=== PATIENT | male | born 2000 | race Caucasian/White ===

== ENCOUNTER 2021-10-04 10:32 | Emergency (ER) | payer MEDICAID, SELFPAY ==
[2021-10-04] VITALS (8 sets, daily range): BP systolic 105–115; BP diastolic 62–79; PULSE 54–75; RESP 15–20; TEMP 36.8–36.9; O2SAT 98; BMI 19.3
--- NOTE | 2021-10-04 12:03 | ED.SYNCOPE ---
HPI - Syncope General Time Seen by Provider: 12:02 Date Seen: 10/04/21 Chief Complaint: Syncope/Fainted Stated Complaint: Syncope today Time Seen by Provider: 10/04/21 10:35 Source: patient History of Present Illness HPI narrative: This 21-year-old male comes in reporting a syncopal episode that occurred just prior to arrival. He states that he feels back to normal at this time. 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 He states that he was bent over and when he stood up he became lightheaded and did have loss of consciousness. He also states that he had a brief severe headache just prior to this episode. He had a similar syncopal event many months ago which also was present he did with a headache that resolved. At that time he had CT imaging of his head and lab results which all were normal. He states that he is in good health. He does have a history of headaches and has been treated in the past for migraine-type headaches. He currently does not have any headache and states that he feels back to normal. Related Data Home Medications Medication Instructions Recorded Confirmed No Known Home Medications 10/04/21 10/04/21 Allergies Allergy/AdvReac Type Severity Reaction Status Date / Time ibuprofen Allergy Verified 10/04/21 10:38 Review of Systems Status of ROS: Reports: 10 or more systems reviewed and unremarkable except as noted in History and below Narrative: Constitutional: No fevers, no weight gain or loss. Eyes: No discharge. No vision changes. HENT: No congestion, no sore throat, no ear pain. Cardiovascular: No chest pain, no palpitations. Respiratory: No shortness of breath, no wheezes, no cough. Gastrointestinal: No abdominal pain, no vomiting, no diarrhea. Genitourinary: No dysuria, no hematuria. Musculoskeletal: Normal range of motion. Skin: No rashes, no pruritis. Neurological: No dizziness, weakness, sensory change, speech change. Endo/Heme/Allergies: No bruising or bleeding. No polydipsia. Pysch: no suicidality, no anxiety, no insomnia. All other systems reviewed and are negative. [facility] Medical History (Updated 10/04/21 @ 12:11 by Villa Whatley MD) Asthma Migraine Surgical History History of elbow surgery Social History Smoking Status: Current some day smoker Do you use any of these nicotine containing products: E-Cigarettes and Vaping Products Second hand tobacco smoke exposure: No How often do you have a drink containing alcohol: monthly or less How often do you have six or more drinks on one occasion: Less than monthly AUDIT-C Alcohol total score: 2 Non-prescribed substance use: denies use service: No Exam Narrative: Exam Narrative: Constitutional: Well-developed, well-nourished, no acute distress. HEENT: Normocephalic, atraumatic. Neck: Normal range of motion. Nontender. Supple. Heart: Regular. No murmurs. Normal rate. Intact distal pulses. Lungs: Clear to auscultation. No chest discomfort. No wheezes, rhonchi, or rales. Abdomen: Normal bowel sounds. Nontender. No rebound tenderness. Genitalia: Deferred. Back: No midline tenderness. Normal range of motion. Extremities: Normal range of motion. No injury. Skin: Intact. No rash. Warm. No erythema or pallor. Neurologic: No altered sensation. No weakness. Alert and oriented. Psychiatric: No suicidality. No anxiety or depression. No insomnia. Nursing notes and vitals signs are reviewed. Const: Vital Signs, click to edit/add: Vital Signs - 24 hr 10/04/21 10:38 10/04/21 11:12 10/04/21 11:25 Temperature 98.2 F Pulse Rate [Pulse Oximeter] 61 Pulse Rate [orthos tatic lying] 63 Pulse Rate [orthos tatic sitting] 57 L Pulse Rate [orthos tatic standing] 75 Respiratory Rate 18 Blood Pressure [Ri ght Upper Arm] 113/70 Blood Pressure [or thostatic lying Ri ght Arm] 108/72 112/79 Blood Pressure [or thostatic sitting Right Arm] 115/77 115/77 Blood Pressure [or thostatic standing Right Arm] 112/79 108/72 Course Vital Signs Vital signs: Initial Vital Signs Temperature 98.2 F 10/04/21 10:38 Temperature Source Temporal Artery Scan 10/04/21 10:38 Pulse Rate 61 10/04/21 10:38 Pulse Rhythm 10/04/21 10:38 Respiratory Rate 18 10/04/21 10:38 Blood Pressure 113/70 10/04/21 10:38 Blood Pressure Mean 84 10/04/21 10:38 Blood Pressure Position Supine 10/04/21 10:38 Oxygen Delivery Method 10/04/21 10:38 Vital Signs Temperature 98.2 F 10/04/21 10:38 Pulse Rate 61 10/04/21 10:38 Respiratory Rate 18 10/04/21 10:38 Blood Pressure 113/70 10/04/21 10:38 Temperature 98.2 F 10/04/21 10:38 Pulse Rate 63 10/04/21 11:25 Respiratory Rate 18 10/04/21 10:38 Blood Pressure 112/79 10/04/21 11:25 MDM - Syncope MDM Narrative Medical decision making narrative: This patient comes in with a syncopal event with prodrome of feeling lightheaded. He feels back to normal. An EKG was ordered and shows normal sinus rhythm without any ST or T-wave abnormalities. His vital signs are all within normal range. I discussed lab and imaging options again with the patient and in a process of shared decision making these were declined. I also described various causes of feeling lightheadedness and eventual syncope. Often these may occur in combination that bring about syncope. In his case he did have a headache and was bent over for a while prior to syncope when occurred when he stood up. I did discuss following up with his primary physician especially if symptoms are recurrent. Differential Diagnosis Differential diagnosis: Likely syncope due to orthostatic hypotension and vasovagal syncope ECG Data Attestation: I personally reviewed and interpreted this ECG as follows: ECG interpretation date: 10/04/21 ECG interpretation time: 12:07 Interpretation: Normal sinus rhythm. Rate 61 beats per minute. There are no ST or T-wave abnormalities. Discharge Plan Discharge Clinical Impression: Vasovagal syncope Patient Disposition: Home, Self-Care Condition: Improved Instructions: Syncope (ED) Additional Instructions: Syncope with prodrome. Continue current plans. Follow up with MD if symptoms are recurrent or otherwise as needed. Return if worsening. Activity Level: Activity as Tolerated Prescriptions: No Action No Known Home Medications 0RF Follow Up/Referrals: Kar Shipman MD [Primary Care Provider] - Stand Alone Forms: [employer] Info Instructions
== END 2021-10-04 12:45 | disposition home or self-care (01) ==
LOC: ED 12:20
PROVIDERS: Emergency Provider Emergency Medicine Emergency Medical Services; PCP Family Medicine
DX: R55 Syncope and collapse (principal)
CPT/HCPCS: 93005; 99283; 99284

== ENCOUNTER 2021-10-10 11:35 | Emergency (ER) | payer MEDICAID, SELFPAY ==
[2021-10-10 11:42] VITALS: BP 120/81; PULSE 69; RESP 18; TEMP 37.3; O2SAT 97; BMI 18.8
--- NOTE | 2021-10-10 11:58 | ED.NURSE ---
ekg done and given to dr. montaño, shows SR
[2021-10-10 12:00] VITALS: BP 113/77; PULSE 74; RESP 16; O2SAT 97
--- NOTE | 2021-10-10 12:04 | CRLHL7_ITS ---
For Patients: As a result of the Century Cures Act, medical imaging exams and procedure reports are released immediately into your electronic medical record. You may view this report before your referring provider. If you have questions, please contact your health care provider. INDICATION: HEADACHE, LIGHTHEADED COMPARISON: 02/06/2015 TECHNIQUE: A CT volumetric acquisition was performed of the brain without IV contrast. Please note that all CT scans at this facility use dose modulation, iterative reconstruction, and/or weight-based dosing when appropriate to reduce radiation dose to as low as reasonably achievable. FINDINGS: The CT images reveal a normal appearance of the cerebral ventricles and basal cisterns. There is no evidence of intracranial hemorrhage, tissue infarction or mass effect. The mastoid air cells and middle ear cavities are clear. The calvarium appears intact. There is normal aeration of the visualized paranasal sinuses. IMPRESSION: Negative head CT. Please note that all CT scans at this facility use dose modulation, iterative reconstruction, and/or weight-based dosing when appropriate to reduce radiation dose to as low as reasonably achievable. Dictated by Eamon Hinojosa MD @ 10/10/2021 1:08:25 PM (Electronically Signed)
--- NOTE | 2021-10-10 12:06 | ED_ITS ---
HPI - General Adult General Time Seen by Provider: 12:05 Date Seen: 10/10/21 Chief complaint: Syncope/Fainted Stated complaint: Lightheaded, nausea Time Seen by Provider: 10/10/21 11:53 History of Present Illness HPI narrative: This 21-year-old male comes in because of a syncopal event that occurred just prior to arrival. He was seen by me about a week ago with similar circumstances. Today he states he was driving in a car when he had sudden onset of headache in the frontal part of his head. He began to feel lightheaded. He got out of the car and his headache and lightheadedness persisted. He did lose consciousness briefly. He did not hurt himself and is unsure if he fell. He continues to have headache and feels some tingling sensation in his body. He states that he did not have breakfast this morning but has been taking liquids. Last week he had syncope event also related to onset of a headache. 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 He does not have any neurologic deficit. Related Data Home Medications Medication Instructions Recorded Confirmed No Known Home Medications 10/04/21 10/04/21 Allergies Allergy/AdvReac Type Severity Reaction Status Date / Time ibuprofen Allergy Verified 10/04/21 10:38 Review of Systems Status of ROS: Reports: 10 or more systems reviewed and unremarkable except as noted in History and below Narrative: Constitutional: No fevers, no weight gain or loss. Eyes: No discharge. No vision changes. HENT: No congestion, no sore throat, no ear pain. Cardiovascular: No chest pain, no palpitations. Respiratory: No shortness of breath, no wheezes, no cough. Gastrointestinal: No abdominal pain, no vomiting, no diarrhea. Genitourinary: No dysuria, no hematuria. Musculoskeletal: Normal range of motion. Skin: No rashes, no pruritis. Neurological: No dizziness, weakness, sensory change, speech change. Endo/Heme/Allergies: No bruising or bleeding. No polydipsia. Pysch: no suicidality, no anxiety, no insomnia. All other systems reviewed and are negative. PFSH PFSH Medical History Asthma Migraine Surgical History History of elbow surgery Social History Smoking Status: Current some day smoker Do you use any of these nicotine containing products: E-Cigarettes and Vaping Products Second hand tobacco smoke exposure: No How often do you have a drink containing alcohol: monthly or less How often do you have six or more drinks on one occasion: Less than monthly AUDIT-C Alcohol total score: 2 Non-prescribed substance use: denies use service: No Exam Narrative: Exam Narrative: Constitutional: Well-developed, well-nourished, no acute distress. HEENT: Normocephalic, atraumatic. Neck: Normal range of motion. Nontender. Supple. Heart: Regular. No murmurs. Normal rate. Intact distal pulses. Lungs: Clear to auscultation. No chest discomfort. No wheezes, rhonchi, or rales. Abdomen: Normal bowel sounds. Nontender. No rebound tenderness. Genitalia: Deferred. Back: No midline tenderness. Normal range of motion. Extremities: Normal range of motion. No injury. Skin: Intact. No rash. Warm. No erythema or pallor. Neurologic: No altered sensation. No weakness. Alert and oriented. Psychiatric: No suicidality. No anxiety or depression. No insomnia. Nursing notes and vitals signs are reviewed. Const: Vital Signs, click to edit/add: Vital Signs - 24 hr 10/10/21 11:42 10/10/21 12:00 10/10/21 12:39 Temperature 99.2 F Pulse Rate [Right Pulse Oximeter] 69 74 64 Respiratory Rate 18 16 16 Blood Pressure [Ri ght Upper Arm] 120/81 113/77 106/82 Pulse Oximetry 97 97 99 10/10/21 13:00 10/10/21 13:30 Temperature Pulse Rate [Right Pulse Oximeter] 68 Respiratory Rate 18 16 Blood Pressure [Ri ght Upper Arm] 104/80 115/83 Pulse Oximetry 100 99 Course Vital Signs Vital signs: Initial Vital Signs Temperature 99.2 F 10/10/21 11:42 Temperature Source Temporal Artery Scan 10/10/21 11:42 Pulse Rate 69 10/10/21 11:42 Respiratory Rate 18 10/10/21 11:42 Blood Pressure 120/81 10/10/21 11:42 Blood Pressure Mean 94 10/10/21 11:42 Blood Pressure Position Supine 10/10/21 11:42 Pulse Oximetry 97 10/10/21 11:42 Oxygen Delivery Method 10/10/21 11:42 Vital Signs Temperature 99.2 F 10/10/21 11:42 Pulse Rate 69 10/10/21 11:42 Respiratory Rate 18 10/10/21 11:42 Blood Pressure 120/81 10/10/21 11:42 Pulse Oximetry 97 10/10/21 11:42 Temperature 99.2 F 10/10/21 11:42 Pulse Rate 68 10/10/21 13:00 Respiratory Rate 16 10/10/21 13:30 Blood Pressure 115/83 10/10/21 13:30 Pulse Oximetry 99 10/10/21 13:30 Medical Decision Making MDM Narrative Medical decision making narrative: This patient comes in with a syncopal episode that was preceded with migraine- type headache. He had similar episode last week. As this was a recurrence a further workup was done today including CT scan of the head and labs. These all returned with normal findings. The patient feels back to normal and has normal vital signs. He does have connections with a neurologist regarding his migraine headaches. It seems that both of these episodes were accompanied or preceded by a migraine-type headache. He is recommended to follow-up with his neurologist for further evaluation and treatment. I did discuss some potential benefit by taking caffeine as it is a vasoconstrictor. Lab Data Labs: Lab Results 10/10/21 10/10/21 Range/Units 12:35 12:35 WBC 5.88 (4.50-11.00) K/uL RBC 5.03 (4.30-5.90) m/uL Hgb 15.0 (13.5-17.5) gm/dL Hct 44.8 (37.0-53.0) % MCV 89 (80-100) fL MCH 30 (26-34) pg MCHC 34 (32-36) gm/dL RDW Coeff of Ashley 12.6 (11.5-15.5) % Plt Count 299 (140-440) K/uL Neut % (Auto) 67.7 (42.0-72.0) % Lymph % (Auto) 21.3 (20-44) % [place] % (Auto) 8.3 (0.0-11.0) % Eos % (Auto) 1.5 (0.0-7.0) % Baso % (Auto) 1.0 (0.0-3.0) % Neut # (Auto) 3.98 (1.7-7.0) K/uL Lymph # (Auto) 1.25 (0.90-2.90) K/uL [place] # (Auto) 0.50 (0.00-0.90) K/UL Eos # (Auto) 0.09 (0.00-0.50) K/uL Baso # (Auto) 0.06 (0.00-0.30) K/uL Abs Immat Gran (auto) 0.01 (0.00-0.30) K/uL Sodium 141 (135-149) mmol/L Potassium 4.1 (3.6-5.1) mmol/L Chloride 106 (96-114) mmol/L Carbon Dioxide 29 (20-32) mmol/L BUN 10 (5-24) mg/dL Creatinine 0.7 (0.5-1.5) mg/dL Estimated Creat Clear 136.01 Glucose 102 (60-115) mg/dL Calcium 9.3 (8.4-10.6) mg/dL Imaging Data CT scan - head: Radiologist's impression: Negative head CT. ECG Data Attestation: I personally reviewed and interpreted this ECG as follows: Prior ECG tracings: not available for review Interpretation: Normal sinus rhythm. Rate 69 beats per minute. There are no ST or T-wave abnormalities. Discharge Plan Discharge Clinical Impression: Vasovagal syncope Patient Disposition: Home, Self-Care Instructions: Syncope (ED) Additional Instructions: Follow-up with primary physician as scheduled and consider consultation with Neurology Clinic. Return if recurrent symptoms happen. Prescriptions: No Action No Known Home Medications 0RF Follow Up/Referrals: Kar Shipman MD [Primary Care Provider] - Stand Alone Forms: [employer] Info Instructions
[2021-10-10 12:39] VITALS: BP 106/82; PULSE 64; RESP 16; O2SAT 99
[2021-10-10] MEDS: 0.9 % SODIUM CHLORIDE 1000 ml 1,000 ML IV (12:40)
[2021-10-10 13:00] VITALS: BP 104/80; PULSE 68; RESP 18; O2SAT 100
[2021-10-10 13:09] LABS: Chloride* 106 mmol/L (96-114); Sodium* 141 mmol/L (135-149)
[2021-10-10 13:12] LABS: Blood Urea Nitrogen* 10 mg/dL (5-24); Calcium* 9.3 mg/dL (8.4-10.6); Carbon Dioxide* 29 mmol/L (20-32); Creatinine* 0.7 mg/dL (0.5-1.5); Est. Creatinine Clearance* 136.01; Estimated Glomerular Filt Rate 134.44; Glucose* 102 mg/dL (60-115); Potassium* 4.1 mmol/L (3.6-5.1)
[2021-10-10 13:30] VITALS: BP 115/83; RESP 16; O2SAT 99
[2021-10-10 13:44] LABS: Basophils Absolute Auto 0.06 K/uL (0.00-0.30); Eosinophils Absolute Auto 0.09 K/uL (0.00-0.50); Eosinophils Percent Auto 1.5 % (0.0-7.0); Hematocrit 44.8 % (37.0-53.0); Immature Granulocytes Abs Auto 0.01 K/uL (0.00-0.30); Lymphocytes Absolute Auto 1.25 K/uL (0.90-2.90); Lymphocytes Percent Auto 21.3 % (20-44); Mean Corpuscular HGB Conc 34 gm/dL (32-36); Mean Corpuscular Hemoglobin 30 pg (26-34); Mean Corpuscular Volume 89 fL (80-100); Monocytes Percent Auto 8.3 % (0.0-11.0); Neutrophils Absolute Auto 3.98 K/uL (1.7-7.0); Neutrophils Percent Auto 67.7 % (42.0-72.0); Platelet Count* 299 K/uL (140-440); RDW Coefficient of Variation % 12.6 % (11.5-15.5); Red Blood Count 5.03 m/uL (4.30-5.90); White Blood Count* 5.88 K/uL (4.50-11.00)
[2021-10-10 13:48] LABS: Slide Review Reflex No
--- NOTE | 2021-10-10 14:51 | ED.NURSE ---
1442 pt given note for work
== END 2021-10-10 14:42 | disposition home or self-care (01) ==
PROVIDERS: Emergency Provider Emergency Medicine Emergency Medical Services; PCP Family Medicine
DX: R55 Syncope and collapse (principal)
CPT/HCPCS: 36415; 70450; 80048; 85025; 93005; 96360; 99285; J7030

== ENCOUNTER 2021-10-16 15:45 | Outpatient (CLI) | payer MEDICAID, SELFPAY ==
[2021-10-16 21:28] LABS: Albumin* 4.9 g/dL (3.3-5.0); Chloride* 101 mmol/L (96-114); Potassium* 4.3 mmol/L (3.6-5.1); Sodium* 140 mmol/L (135-149)
[2021-10-16 21:30] LABS: Creatinine* 0.7 mg/dL (0.5-1.5); Estimated Glomerular Filt Rate 134 ml/min
[2021-10-16 21:31] LABS: Alanine Aminotransferase* 17 U/L (4-50); Alkaline Phosphatase* 74 U/L (40-150); Aspartate Amino Transferase* 30 U/L (12-35); Bilirubin Total* 1.6 mg/dL (0.1-1.5); Blood Urea Nitrogen* 13 mg/dL (5-24); Carbon Dioxide* 29 mmol/L (20-32); Glucose* 91 mg/dL (60-115)
[2021-10-16 21:32] LABS: Calcium* 9.9 mg/dL (8.4-10.6)
[2021-10-16 22:01] LABS: Thyroid Stimulating Hormone* 0.304 uIU/mL (0.270-4.20)
--- OUTSIDE RECORDS SUMMARY | 2021-11-11 12:56 | XMS_ITS | Encounter Summary ---
:2000 Author Organization [place] Address [facility] [place] [address] Care Team Providers Name Role Phone Marie Granger MD Primary Care Provider Aminata Angela MD Unavailable [facility]available [facility] Unavailable [phone] Krishna Jarrett MD Unavailable Reason for Referral Diagnostic Imaging CT Scan (Routine) - Closed Specialty Diagnoses / Procedures Referred By Contact Refer red To Contact Radiology. Diagnoses Dizziness Visual disturbance Kindra Mays, Rand Ct Scan Procedures CT Head w/o & w Contrast PA-C [address] [place] [id number] [place] [id number] [phone] Referral ID Status Reason Start Date Expiration Date Visits Requ ested Visits Authorized [id number] Closed 01/08/2021 01/08/2022 1 1 Reason for Visit Diagnostic Imaging CT Scan (Routine) - Closed Specialty Diagnoses / Procedures Referred By Contact Refer red To Contact Radiology. Diagnoses Dizziness Visual disturbance Kindra Mays, Sh Ct Scan Procedures CT Head w/o & w Contrast PA-C [address], [place] [address] [place], [place] [address] Referral ID Status Reason Start Date Expiration Date Visits Requ ested Visits Authorized [id number] Closed 01/08/2021 01/08/2022 1 1 Encounter Details Date Type Department Care Team Description 01/09/2021 Hospital Encounter [facility] Kindra Mays Dizziness; Travis Nieves PA-C Visual disturbance [address] [place] [id number] [phone] Social History Tobacco Use Types Packs/Day Years Used Date Never Smoker Smokeless Tobacco: Never Used Sex Assigned at Date Recorded Not on file COVID-19 Exposure Response Date Recorded In the last month, have you been in contact with No / Unsure 01/09/2021 7:37 AM CDT someone who 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 documented as of this encounter Medications at Time of Discharge Medication Sig Dispensed Refills Start Date End Date albuterol (PROAIR Inhale 2 puffs into 18 g 11 HFA/PROVENTIL the lungs every 4 HFA/VENTOLIN HFA) 108 hours as needed for (90 Base) MCG/ACT shortness of breath inhalerIndications: Mild / dyspnea intermittent asthma without complication AMITRIPTYLINE HCL PO Take 25 mg by mouth 0 nightly as needed escitalopram (LEXAPRO) Take 10 mg by mouth 0 /0 05/2020 10 MG tablet daily omeprazole (PRILOSEC) 40 Take 1 capsule (40 30 capsule 3 MG capsuleIndications: mg) by mouth daily Intractable vomiting Take 30 minutes with nausea, vomiting of before a meal. unspecified type fluticasone (FLOVENT Inhale 1 puff into 10.6 g 1 021 01/13/2021 HFA) 44 MCG/ACT the lungs 2 times inhalerIndications: Mild daily intermittent asthma without complication documented as of this encounter Plan of Treatment Not on filedocumented as of this encounter Procedures Procedure Name Priority Date/Time Associated Diagnosis Comme nts CT HEAD W/O & W Routine 01/09/2021 8:29 AM Dizziness Results for this CONTRAST CDT Visual disturbance procedure are in the results section. documented in this encounter Results CT Head w/o & w Contrast (01/09/2021 8:29 AM CDT) Anatomical Region Laterality Modality Head, SUBRAD CT NEURO, SUBRAD CT NEURO, UMP CT NEURO, Computed Tomography RAD CT Specimen (Source) Anatomical Location Collection Method / Collectio n Time Received Time / Laterality Volume Impressions 01/09/2021 10:47 AM CDT IMPRESSION: Negative head CT without and with contrast. PAUL LOWE MD Narrative 01/09/2021 10:[address] HEAD WITHOUT AND WITH CONTRAST ??01/09/2021 8:29 AM HISTORY: Dizziness, non-specific. Visual disturbance. TECHNIQUE: Axial images were obtained th rough the brain without and with contrast. 50 mL of Isovue-370 was g iven. Multiplanar reconstructions were performed. Radiatio n dose for this scan was reduced using automated exposure control , adjustment of the mA and/or kV according to patient size, or iterati ve reconstruction technique. FINDINGS: The ventricles are normal in s ize, shape, and configuration. The brain parenchyma and subarachnoid sp aces are normal. There is no evidence for intracranial hemorrhage, ma ss effect, acute infarct, or skull fracture. Visualized paranasal sin uses and mastoid air cells are clear. Postcontrast images do not show a ny abnormal areas of enhancement or any focal mass lesions. T he internal auditory canal and cerebellopontine angle cisterns appear t o be normal. Procedure Note Paul Lowe MD - 01/09/2021Form atting of this note might be different from the original. CT HEAD WITHOUT AND WITH CONTRAST 8:29 AM HISTORY: Dizziness, non-specific. Visual disturbance. TECHNIQUE: Axial images were obtained th rough the brain without and with contrast. 50 mL of Isovue-370 was g iven. Multiplanar reconstructions were performed. Radiatio n dose for this scan was reduced using automated exposure control , adjustment of the mA and/or kV according to patient size, or iterati ve reconstruction technique. FINDINGS: The ventricles are normal in s ize, shape, and configuration. The brain parenchyma and subarachnoid sp aces are normal. There is no evidence for intracranial hemorrhage, ma ss effect, acute infarct, or skull fracture. Visualized paranasal sin uses and mastoid air cells are clear. Postcontrast images do not show a ny abnormal areas of enhancement or any focal mass lesions. T he internal auditory canal and cerebellopontine angle cisterns appear t o be normal. IMPRESSION: Negative head CT without and with contrast. PAUL LOWE MD Kindra Lizbethruslan Mays PA-C IMG CT ORDERABLES documented in this encounter Visit Diagnoses Diagnosis Dizziness Dizziness and giddiness Visual disturbance Unspecified visual disturbance documented in this encounter Administered Medications Inactive Administered Medications - up to 3 most recent administrations Medication Order MAR Action Action Date Dose Rate Site iopamidol (ISOVUE-370) solution 50 Given 01/09/2021 8:06 AM CDT 50 mLs mL 50 mL, Intravenous, ONCE, On Terrie 01/09/21 at 0800, For 1 dose Saline flush Given 01/09/2021 8:06 AM CDT 60 mLs Intravenous, 60 mL, ONCE, On Terrie 01/09/21 at 0800, For 1 dose, This entry is for use by Radiology to intermittently used as a flush in patients receiving a CT scan. documented in this encounter Care Teams Pre Billing Clinician Relationship Specialty Start Date End Date Marie Granger MD PCP - General 03/06/15 [facility] [address] [place] [address] Jluio César, Referring Physician Surgery 03/06/15 MD Vero Coates Jessica MD Pediatric Gastroenterology 03/06/15 MD Shira [address] [place] [id number] Krishna Jarrett Assigned PCP 11/14/20 MD Arian [address] [place] [address] documented as of this encounter
--- OUTSIDE RECORDS SUMMARY | 2021-11-11 12:56 | XMS_ITS | Encounter Summary ---
:2000 Author Organization [place] Address [address] [place] [address] Care Team Providers Name Role Phone Marie Granger MD Primary Care Provider Aminata Angela MD Unavailable Unavailable Caitlin Pham MD Unavailable [phone] Krishna Jarrett MD Unavailable Encounter Details Date Type Department Care Team Description 01/13/2021 Travel Social History Tobacco Use Types Packs/Day Years Used Date Never Smoker Smokeless Tobacco: Never Used Sex Assigned at Date Recorded Not on file COVID-19 Exposure Response Date Recorded In the last month, have you been in contact with No / Unsure 01/13/2021 2:54 PM CDT someone who 

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
--- OUTSIDE RECORDS SUMMARY | 2021-11-11 12:56 | XMS_ITS | Encounter Summary ---
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 documented as of this encounter Plan of Treatment Not on filedocumented as of this encounter Visit Diagnoses Not on filedocumented in this encounter Care Teams Handle Attacher Relationship Specialty Start Date End Date Marie Granger MD PCP - General 03/06/15 [facility] [address] [place] [address] [place], Referring Physician Surgery 03/06/15 MD Vero Coates Jessica MD Pediatric Gastroenterology 03/06/15 MD Shira [address] [place] [address] Krishna Jarrett Assigned PCP 11/14/20 MD Arian [address] [place] [address] documented as of this encounter
--- OUTSIDE RECORDS SUMMARY | 2021-11-11 12:56 | XMS_ITS | Encounter Summary ---
:2000 Author Organization [place] Address [facility] [place] [address] Care Team Providers Name Role Phone Marie Granger MD Primary Care Provider Aminata Angela MD Unavailable [facility] Unavailable [phone] Krishna Jarrett MD Unavailable Reason for Visit Reason Comments Cough Cough worsening the last 4 d ays. Neg covid test yesterday Encounter Details Date Type Department Care Team Description 08/25/2021 Office Visit [facility] Gaurav Boyd, Acute bacterial sinusitis (Primary Dx); Urgent Care [facility] DOMINGUEZ-T[place] Sinus drainage; [address] Mild persistent asthma [place] [address] [phone] Social History Tobacco Use Types Packs/Day Years [...] in contact with No / Unsu re 08/25/2021 11:46 AM CDT someone who was confirmed or suspected to have Coronavirus/COVID-19? documented as of this encounter Last Filed Vital Signs Vital Sign Reading Time Taken Comments Blood Pressure 116/70 08/25/2021 11:49 AM CDT Pulse 94 08/25/2021 11:49 AM CDT Temperature 37.2 ??C (98.9 ??F) 08/25/2021 11:49 AM CDT Respiratory Rate 16 08/25/2021 11:49 AM CDT Oxygen Saturation 99% 08/25/2021 11:49 AM CDT Inhaled Oxygen Concentration - - Weight 58.5 kg (129 lb) 08/25/2021 11:49 AM CDT Height - - Body Mass Index 18.51 11/29/2020 1:04 PM CDT documented in this encounter Patient Instructions AttachmentsThe following attachments cannot be sent through Care Everywhere. Sinusitis (Antibiotic Treatment) (Qatari)Asthma, Acute (Adult) (Qatari) documented in this encounter Progress Notes Gaurav Boyd PA-C - 08/25/2021 12:00 PM CDT Assessment & Plan Acute bacterial sinusitis The sinuses are air-filled spaces within the bones of the face. They connect to the inside of the nose.??Sinusitis??is an inflammation of the tissue that lines the sinuses. Sinusitis can occur during acold. It can also happen due to allergies to pollens and other particles in the air. Sinusitis can cause symptoms of sinus congestion and a feeling of fullness. A sinus infection causes fever, headache, and facial pain. There is often green or yellow fluid draining from the nose or into the back of the throat (post-nasal drip). You have been given antibiotics to treat this condition. - amoxicillin (AMOXIL) 875 MG tablet; Take 1 tablet (875 mg) by mouth 2 times daily for 10 days Sinus drainage - fluticasone (FLONASE) 50 MCG/ACT nasal spray; [place] 1 spray into both nostrils daily Mild persistent asthma with acute exacerbation Asthma is a disease where the medium and??small air passages in the lung go into spasm and restrict air flow. Inflammation and swelling of the airways cause further blockage. During an acute asthma attack, these factors cause trouble breathing, wheezing, cough, and chest tightness. - albuterol (PROVENTIL HFA) 108 (90 Base) MCG/ACT inhaler; Inhale 2 puffs into the lungs every 6 hours At today's visit with Dash Collier , we discussed results, diagnosis, medications and formulateda plan. We also discussed red flags for immediate return to clinic/ER, as well as indications for follow up if no improvement. Patient understood and agreed to plan. Dash Collier was discharged with stable vitals and has no further questions. No follow-ups on file. Gaurav Boyd, [facility], [facility] Dash is a 21 year old who presents for the following health issues accompanied by his friend. HPI Dash Collier, 21 year old, male presents to the urgent care today with: Cough (Cough worsening the last 4 days. Neg covid test yesterday ) Review of Systems Constitutional, HEENT, cardiovascular, pulmonary, gi and gu systems are negative, except as otherwise noted. Objective BP 116/70 Pulse 94 Temp 98.9 ??F (37.2 ??C) (Tympanic) Resp 16 Wt 58.5 kg (129 lb) SpO2 99% BMI 18.51 kg/m?? Body mass index is 18.51 kg/m??. Physical Exam GENERAL: healthy, alert and no distress EYES: Eyes grossly normal to inspection, PERRL and conjunctivae and sclerae normal HENT: normal cephalic/atraumatic, ear canals and TM's normal, nasal mucosa edematous , rhinorrhea green, oropharynx clear and oral mucous membranes moist NECK: no adenopathy, no asymmetry, masses, or scars and thyroid normal to palpation RESP: expiratory wheezes throughout CV: regular rate and rhythm, normal S1 S2, no S3 or S4, no murmur, click or rub, no peripheral edemaand peripheral pulses strong ABDOMEN: soft, nontender, no hepatosplenomegaly, no masses and bowel sounds normal MS: no gross musculoskeletal defects noted, no edema SKIN: no suspicious lesions or rashes NEURO: Normal strength and tone, mentation intact and speech normal PSYCH: mentation appears normal, affect normal/bright documented in this encounter Plan of Treatment Not on filedocumented as of this encounter Visit Diagnoses Diagnosis Acute bacterial sinusitis - Primary Acute sinusitis, unspecified Sinus drainage Other diseases of nasal cavity and sinus es Mild persistent asthma with acute exacer bation Unspecified asthma, with exacerbation documented in this encounter Care Teams Bear Keeper Relationship Specialty Start Date End Date Marie Granger MD PCP - General 03/06/15 [facility] [address] [place] [address] Julio César, Referring Physician Surgery 03/06/15 MD Vero Coates Jessica MD Pediatric Gastroenterology 03/06/15 MD Shira [address] [place] [address] Krishna Jarrett Assigned PCP 11/14/20 MD Arian [address] [place], [place] [address] documented as of this encounter
--- OUTSIDE RECORDS SUMMARY | 2021-11-11 12:56 | XMS_ITS | Encounter Summary ---
:2000 Author Organization [place] Address [facility] [place] [address] Care Team Providers Name Role Phone Marie Granger MD Primary Care Provider Aminata Angela MD Unavailable [facility] Unavailable [phone] Krishna Medina MD Unavailable Reason for Visit Reason Comments Establish Care Encounter Details Date Type Department Care Team Description 11/29/2020 Office Visit [facility] Krishna Medina Mild inte rmittent Clinic [place] MD Arian asthma without [place] [address] complication (Primary [address] [place], [place] Dx) [place] [id number] Social History Tobacco Use Types Packs/Day Years Used Date Never Smoker Smokeless Tobacco: Never Used Sex Assigned at Date Recorded Not on file COVID-19 Exposure Response Date Recorded In the last month, have you been in contact with No / Unsure 11/29/2020 12:44 PM CDT someone who 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 documented as of this encounter Last Filed Vital Signs Vital Sign Reading Time Taken Comments Blood Pressure 118/68 11/29/2020 1:04 PM CDT Pulse 85 11/29/2020 1:04 PM CDT Temperature 36.7 ??C (98 ??F) 11/29/2020 1:04 PM CDT Respiratory Rate - - Oxygen Saturation 98% 11/29/2020 1:04 PM CDT Inhaled Oxygen Concentration - - Weight 55.3 kg (122 lb) 11/29/2020 1:04 PM CDT Height 177.8 cm (5' 10) 11/29/2020 1:04 PM CDT Body Mass Index 17.51 11/29/2020 1:04 PM CDT documented in this encounter Patient Instructions Patient InstructionsKrishna Medina MD - 11/29/2020 1:00 PM CDT - Remember to rinse your mouth out with water after every Flovent use documented in this encounter Progress Notes Krishna Medina MD - 11/29/2020 1:00 PM CDT Assessment & Plan Mild intermittent asthma without complication Reports an increase in his asthma symptoms and albuterol PRN usage. Feels winter is the worst for his symptoms with the cold air. Discussed the asthma step up treatment guide, and he would like to try instituting a low-dose ICS inhaler to see if he can get better control. Discussed side effects, including thrush and advised him to rinse his mouth out after every usage. - albuterol (PROAIR HFA/PROVENTIL HFA/VENTOLIN HFA) 108 (90 Base) MCG/ACT inhaler; Inhale 2 puffs into the lungs every 4 hours as needed for shortness of breath / dyspnea - fluticasone (FLOVENT HFA) 44 MCG/ACT inhaler; Inhale 1 puff into the lungs 2 times daily Return in about 6 months (around 06/01/2021) for Physical Exam. Krishna Medina MD [facility] Kaushal Bowling is a 20 year old who presents to establish care. His last provider is in [place] and he now lives in [place] and would like to establish with someone closer. He has no acute complaints today but is hoping to discuss his asthma. He reports he takes amitriptyline, escitalopram, Concerta, omeprazole, and naproxen. 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 He does not think it would be prescribed under a different name. We do not have the records for his last clinic (checked Care Everywhere as well with his permission) but he did sign a WANDA for his past clinic and we will request those records. He is not asking for a refill on any psych meds today so this was not discussed further. Review of Systems Constitutional, HEENT, cardiovascular, pulmonary systems are negative, except as otherwise noted. Objective BP 118/68 Pulse 85 Temp 98 ??F (36.7 ??C) (Temporal) Ht 1.778 m (5' 10) Wt 55.3 kg (122 lb) SpO2 98% BMI 17.51 kg/m?? Body mass index is 17.51 kg/m??. Physical Exam GENERAL: alert and in no distress. EYES: conjunctivae/corneas clear. HENT: NC/AT. RESP: CTAB, no w/r/r. CV: RRR, no m/r/g. Air movement a bit tight. GI: NT, ND, without rebound tenderness or guarding MSK: Moves all four extremities freely. SKIN: No significant ulcers, lesions, or rashes on the visualized portions of the skin NEURO: Alert. Oriented. documented in this encounter Plan of Treatment Not on filedocumented as of this encounter Visit Diagnoses Diagnosis Mild intermittent asthma without complic ation - Primary Unspecified asthma documented in this encounter Care Teams Pedorthist Relationship Specialty Start Date End Date Marie Granger MD PCP - General 03/06/15 [facility] [address] [place] [address] Julio César, Referring Physician Surgery 03/06/15 MD Vero Coates Jessica MD Pediatric Gastroenterology 03/06/15 MD Shira [address] [place] [address] Krishna Medina Assigned PCP 11/14/20 MD Arian [address] [place], [place] [address] documented as of this encounter
--- OUTSIDE RECORDS SUMMARY | 2021-11-11 12:56 | XMS_ITS | Encounter Summary ---
:2000 Author Organization [place] Address [address] [place] [address] Care Team Providers Name Role Phone Marie Granger MD Primary Care Provider Aminata Angela MD Unavailable [facility] Unavailable [phone] Krishna Jarrett MD Unavailable Encounter Details Date Type Department Care Team Description 10/10/2021 Travel Social History Tobacco Use Types Packs/Day [...] have Coronavirus/COVID-19? documented as of this encounter Plan of Treatment Not on filedocumented as of this encounter Visit Diagnoses Not on filedocumented in this encounter Care Teams Account Manager Education Relationship Specialty Start Date End Date Marie Granger MD PCP - General 03/06/15 [facility] [address] [place] [address] Julio César, Referring Physician Surgery 03/06/15 MD Vero Coates Jessica MD Pediatric Gastroenterology 03/06/15 MD Shira [address] [place] [address] Krishna Jarrett Assigned PCP 11/14/20 MD Arian [address] [place] [address] documented as of this encounter
--- OUTSIDE RECORDS SUMMARY | 2021-11-11 12:56 | XMS_ITS | Encounter Summary ---
:2000 Author Organization [place] Address [facility] [place] [address] Care Team Providers Name Role Phone Marie Granger MD Primary Care Provider Aminata Angela MD Unavailable Unavailable Caitlin Pham MD Unavailable [phone] Krishna Jarrett MD Unavailable Reason for Visit Reason Comments Cough Chest Pain Encounter Details Date Type Department Care Team Description 04/01/2021 Virtual Visit [facility] Nicole Bowen t with or exposure to viral disease (Primary Dx); [facility] BIBIANA Swan CNP Mild persistent asthma with acute exacer bation; [address] [address] [address] [facility] [place], [place] [address] [address] [place], [place] [phone] [id number] Social History Tobacco Use Types Packs/Day Years [...] with No / Unsure 04/01/2021 2:59 PM 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 documented as of this encounter Patient Instructions Patient InstructionsNicole BowenBIBIANA DATABASE ANALYST - 04/01/2021 4:20 PM ENRICHMENT ASSISTANT Images from the original note were not included. Patient Education After Your COVID-19 (Coronavirus) Test You have been tested for COVID-19 (coronavirus). If you'll have surgery in the next few days, we'll let you know ahead of time if you have the virus.Please call your surgeon's office with any questions. For all other patients: Results are usually available in [employer] within 2 to 3 days. If you do not have a [employer] account, you'll get a letter in the mail in about 7 to 10 days. [employer] is often the fastest way to get test results. Please sign up if you do not already have a [employer] account. See the handout Getting COVID-19 Test Results in [employer] for help. What if my test result is positive? If your test is positive and you have not viewed your result in [employer], you'll get a phone call with your result. (A positive test means that you have the virus.) ?? Follow the tips under How do I self-isolate? below for 10 days (20 days if you have a weak immune system). ?? You don't need to be retested for COVID-19 before going back to school or work. As long as you'refever-free and feeling better, you can go back to school, work and other activities after waiting the 10 or 20 days. What if I have questions after I get my results? If you have questions about your results, please visit our testing website at [email or web address]. After 7 to 10 days, if you have not gotten your results: ?? Call ([phone]) and ask to speak with our COVID-19 results team. ?? If you're being treated at an infusion center: Call your infusion center directly. What are the symptoms of COVID-19? Cough, fever and trouble breathing are the most common signs of COVID-19. Other symptoms can include new headaches, new muscle or body aches, new and unexplained fatigue (feeling very tired), chills, sore throat, congestion (stuffy or runny nose), diarrhea (loose poop), lossof taste or smell, belly pain, and nausea or vomiting (feeling sick to your stomach or throwing up). You may already have symptoms of COVID-19, or they may show up later. What should I do if I have symptoms? If you're having surgery: Call your surgeon's office. For all other patients: Stay home and away from others (self-isolate) until ... ?? You've had no fever--and no medicine that reduces fever--for 1 full day (24 hours), AND ?? Other symptoms have gotten better. For example, your cough or breathing has improved, AND ?? At least 10 days have passed since your symptoms first started. How do I self-isolate? ?? Stay in your own room, even for meals. Use your own bathroom if you can. ?? Stay away from others in your home. No hugging, kissing or shaking hands. No visitors. ?? Don't go to work, school or anywhere else. ?? Clean high touch surfaces often (doorknobs, counters, handles). Use household cleaning spray orwipes. You'll find a full list of hearing and speech assistant on the EPA website: www.epa.gov/pesticide-registration/lis f-j-ksdlrwfebhfxk-zgc-pmujvye-lwky-cov-2. ?? Cover your mouth and nose with a mask or other face covering to avoid spreading germs. ?? Wash your hands and face often. Use soap and water. ?? Caregivers in these groups are at risk for severe illness due to COVID-19: ? People 65 years and older ? People who live in a assisted or long-term care facility ? People with chronic disease (lung, heart, cancer, diabetes, kidney, liver, immunologic) ? People who have a weakened immune system, including those who: ?? Are in cancer treatment ?? Take medicine that weakens the immune system, such as corticosteroids ?? Had a bone marrow or organ transplant ?? Have an immune deficiency ?? Have poorly controlled HIV or AIDS ?? Are obese (body mass index of 40 or higher) ?? Smoke regularly ?? Caregivers should wear gloves while washing dishes, handling laundry and cleaning bedrooms and bathrooms. ?? Use caution when washing and drying laundry: Don't shake dirty laundry and use the warmest water setting that you can. ?? For more tips on managing your health at home, go to www.cdc.gov/coronavirus/2019-ncov/downloads/10Things.pdf. How can I take care of myself at home? 1. Get lots of rest. Drink extra fluids (unless a doctor has told you not to). 2. Take Tylenol (acetaminophen) for fever or pain. If you have liver or kidney problems, ask your family doctor if it's OK to take Tylenol. Adults can take either: ? 650 mg (two 325 mg pills) every 4 to 6 hours, or? 1,000 mg (two 500 mg pills) every 8 hours as needed. ? Note: Don't take more than 3,000 mg in one day. Acetaminophen is found in many medicines (both prescribed and utkx-aqu-aytlfnz medicines). Read all labels to be sure you don't take too much. For children, check the Tylenol bottle for the right dose. The dose is based on the child's age or weight. 3. If you have other health problems (like cancer, heart failure, an organ transplant or severe kidney disease): Call your specialty clinic if you don't feel better in the next 2 days. 4. Know when to call 911. Emergency warning signs include: ? Trouble breathing or shortness of breath ? Chest pain or pressure that doesn't go away ? Feeling confused like you haven't felt before, or not being able to wake up ? Bluish-colored lips or face 5. If your doctor prescribed a blood thinner medicine: Follow their instructions. Where can I get more information? ?? [facility] - About COVID-19: [email or web address] ?? CDC - If You're Sick: cdc.gov/coronavirus/2019-ncov/about/qbwpz-uwox-zydn.html ?? CDC - Ending Home Isolation: www.cdc.gov/coronavirus/2019-ncov/hcp/aunyodznspb-rk-smxr-patients.html ?? CDC - Caring for Someone: www.cdc.gov/coronavirus/2019-ncov/fs-new-xqf-sick/gswl-agy-eeffypg.html ?? [facility] - Interim Guidance for Hospital Discharge to Home: www.health.[facility]ri.us/diseases/coronavirus/hcp/hospdischarge.pdf ?? [facility] clinical trials (COVID-19 research studies): clinicalaffairs.[facility]/zfq-itihheqc-cloewp ?? Below are the COVID-19 hotlines at the [facility] of [facility] ([facility]). Interpreters are available. ? For health questions: Call [phone] or (7 a.m. to 7 p.m.) ? For questions about schools and childcare: Call [phone] or (7 a.m. to 7 p.m.) For informational purposes only. Not to replace the advice of your health care provider. Clinically reviewed by Infection Prevention and [facility] COVID-19 Clinical Team. Copyright ?? 2020 [facility]. All rights reserved. [employer] 150951 - Rev 02/14/20. Patient Education Switchboard Video Sheets Caring for Someone Who Has COVID-19 Your loved one has a COVID-19 infection, and you're caring for them at home. This video will show you some things to do as you provide care. To watch the video: Scan the QR code Using your mobile device, scan the following code: ?? OR Go to the website: www.eÓtica Enter the prescription code: ??67J ?? 2020 [employer]. Patient Education Coronavirus Disease 2019 (COVID-19): Caring for Yourself or Others If you or a household member have symptoms of COVID-19, follow these guidelines for preventing spread of the virus and managing symptoms. This is regardless of your vaccination status. If you have COVID-19 symptoms ?? Stay home. Call your healthcare provider and tell them you have symptoms.. Do this before going to any hospital or clinic. Follow your provider's instructions. You may be advised to isolate yourselfat home. This is called self-isolation. You may also be told to stay at least 6 feet from others to p revent the spread of COVID-19. This is called social distancing. ?? Stay away from work, school, and public places. Limit physical contact with family members. Limitvisitors. Don't kiss anyone or share eating or drinking utensils. Clean surfaces you touch with disinfectant. This is to help prevent the virus from spreading. ?? If you need to cough or sneeze, do it into a tissue. Then throw the tissue into the trash. If youdon't have tissues, cough or sneeze into the bend of your elbow. ?? Wear a cloth face mask with 2 or more layers of washable, breathable fabric and a nose wire whilein public or when indoors with people who don't live with you. Or you can wear a disposable paper mask with a cloth mask on top. Wear the mask so that it covers both your nose and mouth. ?? Don???t share food or personal items with people in your household. This includes items like eating and drinking utensils, towels, and bedding. ?? If you need to go to a hospital or clinic, expect that the healthcare staff will wear protective equipment such as masks, gowns, gloves, and eye protection. You may be advised to wait in or enter through a separate area. This is to prevent the possible virus from spreading. ?? Tell the healthcare staff about recent travel. This includes local travel on public transport. Staff may need to find other people you have been in contact with. ?? Follow all instructions the healthcare staff give you. If you have been diagnosed with COVID-19 ?? Stay home and start self-isolation. Don???t leave your home unless you need to get medical care. Don't go to work, school, or public areas. Don't use public transportation or taxis. ?? Follow all instructions from your healthcare provider. Call your healthcare provider???s office before going. They can prepare and give you instructions. This will help prevent the virus from spreading. ?? If you need to go to a hospital or clinic, expect that the healthcare staff will wear protective equipment such as masks, gowns, gloves, and eye protection. You may be advised to wait in or enter through a separate area. This is to prevent the possible virus from spreading. ?? Wear a face mask with 2 or more layers and a nose wire. Use either a cloth mask with layers of tightly woven, breathable fabric or a disposable paper mask with a cloth mask on top. This is to protect other people from your germs. If you are not able to wear a mask, your caregivers should. Wear the mask so that it covers both your nose and mouth. ?? Stay away from other people in your home. ?? Stay away from pets and other animals. ?? Don???t share food or personal items with people in your household. This includes items like eating and drinking utensils, towels, and bedding. ?? If you need to cough or sneeze, do it into a tissue. Then throw the tissue into the trash. If youdon't have tissues, cough or sneeze into the bend of your elbow. ?? Wash your hands often. Self-care at home?? Prevention Several vaccines are available to prevent COVID-19 or reduce its severity. These vaccine reduce how severe the illness will be if you get the virus. No vaccine is ever 100% effective in preventing any illness, but the COVID-19 vaccines work well and are safe. One vaccine is available for people as young as 5. Expert groups, including ACOG and CDC, advise or people to be vaccinated. Talk with your healthcare provider about which vaccine is best for you and your family. Treatment Current treatment is mainly aimed at helping your body while it fights the virus. This is known as supportive care. For serious COVID-19, you may need to stay in the hospital. Supportive care includes: ?? Getting rest. This helps your body fight the illness. ?? Staying hydrated. Drinking liquids is the best way to prevent dehydration. Try to drink 6 to 8 glasses of liquids every day, or as advised by your provider. Also check with your provider about whichfluids are best for you. Don't drink fluids that contain caffeine or alcohol. ?? Taking sqli-qjx-mfiiqxe (OTC) pain medicine. These are used to help ease pain and reduce fever. Follow your healthcare provider's instructions for which OTC medicine to use. If you've been treated for suspected or confirmed COVID-19 , follow all of your healthcare team's instructions. This will include when it's OK to stop self- isolation. You may also get instructions on position changes to help your breathing, such as lying on your belly (prone positioning). If you were treated at a hospital and discharged, you may be sent home with a pulse oximeter. This is a small electronic device that you clip on your fingertip. It measures the amount of oxygen in your body. Followyour healthcare team's instructions on its use, how they will be in touch with you, and let you knowwhen to call them. The FDA approved monoclonal antibody therapy for emergency investigational use in certain people whohave a positive COVID-19 viral test and have mild to moderate symptoms but are not in the hospital. Your healthcare provider will advise you on whether monoclonal antibody therapy is appropriate for you. It's not approved to prevent COVID-19. It's approved for people 12 years and older who weigh at least 88 pounds (about 40 kgs) and are at high risk for severe COVID-19 and a hospital stay. This includes people who are 65 years and older and people with certain chronic conditions. Monoclonal antibodytherapy is not approved for people who: ?? Are in the hospital with COVID-19, or ?? Need oxygen therapy for COVID-19, or ?? Need oxygen therapy for a chronic condition and need to have oxygen flow increased because of COVID-19 If you've had confirmed COVID-19, your healthcare team may ask you to consider donating your plasma.This is called COVID-19 convalescent plasma donation. Plasma from people fully recovered from COVID-19 may contain antibodies to help fight COVID-19 in people who are currently seriously ill with the disease. Experts don't know the safety of COVID-19 convalescent plasma or how well it works. Research continues. The FDA has approved it for emergency use in certain people with serious or life-threatening COVID-19. Home care for a sick person? Follow all instructions from healthcare staff. ?? Wash your hands often. ?? Wear protective clothing as advised. ?? Make sure the sick person wears a mask. If they can't wear a mask, don't stay in the same room with the person. If you must be in the same room, wear a face mask. When wearing a mask, make sure thatit covers both the nose and mouth. ?? Keep track of the sick person???s symptoms. ?? Clean home surfaces often with disinfectant. This includes phones, kitchen counters, fridge door handle, bathroom surfaces, and others. ?? Don???t let anyone share household items with the sick person. This includes eating and drinking tools, towels, sheets, or blankets. ?? Clean fabrics and laundry thoroughly. ?? Keep other people and pets away from the sick person. When you can stop self-isolation When you are sick with COVID-19, you should stay away from other people. This is called self-isolation. For normally healthy children or adults with COVID-19 symptoms, CDC advises stopping self-isolation when all 3 of these are true: 1. You have had no fever for at least 24 hours. This means no fever without medicine that reduces fever, such as acetaminophen, for at least 24 hours. 2. Your symptoms such as cough or trouble breathing have improved. 3. It has been at least 10 days since your first symptoms started. For people who have COVID-19 but no symptoms , isolation can stop 10 days after the first positive test. If you have a weak immune system and COVID-19, or if you've had severe COVID-19, your instructions on when to stop isolation will be somewhat different. Some conditions and treatments can cause a weak immune system. These include cancer treatment, bone marrow or organ transplants, and conditions such as HIV or other immune system disorders. You may be advised to self-isolate up to 20 days after your symptoms first started. Your healthcare provider may want to retest you for COVID-19. Follow your provider's instructions. CDC mask guidance Consider the CDC's guidance and your local community's instructions on face masks. ?? Cloth masks may help prevent people who have COVID-19 from spreading the virus to others. ?? Cloth masks are most likely to reduce COVID-19 spread when masks are widely used by people who are out in the public. ?? Wear a mask inside your house if you live with someone who has symptoms of COVID-19 or has testedpositive for COVID-19. ?? CDC advises all people older than 2 who are not fully vaccinated to wear a mask and stay 6 feet away from others while in public. ?? CDC advises people with a weak immune system, even if fully vaccinated, to continue wearing masksand to stay 6 feet away from others while in public. ?? In kindergarten through grade 12 classes, CDC advises indoor masking for all teachers, staff, students ages 2 and older, and visitors to schools, regardless of vaccination status. ?? Like other viruses, the virus that causes COVID-19 changes (mutates) all the time. This leads to variants that are easily spread, including the delta variant. To protect against variants, CDC advises all people over age 2, including those who are fully vaccinated, to wear a mask indoors in public se ttings if you are in an area of high numbers of COVID-19 cases. See the [facility]'s county data website for current transmission information in your area. Certain people should not wear a face mask. This includes: ?? Children younger than 2 years old ?? Anyone with a health, developmental, or mental health condition that can be made worse by wearinga mask ?? Anyone who is unconscious or unable to remove the face covering without help See the CDC's mask guidance. When to call your healthcare provider Call your healthcare provider right away if a sick person has any of these: ?? Trouble breathing ?? Pain or pressure in chest If a sick person has any of these, call 911: ?? Trouble breathing that gets worse ?? Pain or pressure in chest that gets worse ?? Blue tint to lips or face ?? Fast or irregular heartbeat ?? Confusion or trouble waking ?? Fainting or loss of consciousness ?? Coughing up blood Going home from the hospital If you were diagnosed with COVID-19 and were recently discharged from the hospital: ?? Follow the instructions above for self-care and isolation. ?? Follow the hospital healthcare team???s specific instructions. ?? Ask questions if anything is unclear to you. Write down answers so you remember them. Date last modified: 02/05/2021 Cali last reviewed this educational content on 07/05/2019 ?? [id number] [employer]. All rights reserved. This information is not intended as a substitute for professional medical care. Always follow your healthcare professional's instructions. Patient Education Chest Wall Pain: Costochondritis The chest pain that you have had today is caused by costochondritis. This condition is caused by an inflammation of the cartilage joining your ribs to your breastbone. It's not caused by heart or lung problems. Your healthcare team has made sure that the chest pain you feel is not from a life threatening cause of chest pain such as heart attack, collapsed lung, blood clot in the lung, tear in the aorta, or esophageal rupture. The inflammation may have been brought on by a blow to the chest, lifting heavy objects, intense exercise, or an illness that made you cough and sneeze a lot. It??often occurs??during times of emotional stress.??It can be painful, but it's not dangerous. It usually goes away in 1 to 2 weeks. But it may happen again. Rarely, a more serious condition may cause symptoms similarto costochondritis. That???s why it???s important to watch for the warning signs listed below. Home care Follow these guidelines when caring for yourself at home: ?? If you feel that emotional stress is a cause of your condition, try to figure out the sources of that stress. It may not be obvious. Learn ways to deal with the stress in your life. This can includeregular exercise, muscle relaxation, meditation, or simply taking time out for yourself. ?? You may use acetaminophen, ibuprofen, or naproxen to control pain, unless another pain medicine was prescribed. If you have liver or kidney disease or ever had a stomach ulcer, talk with your healthcare provider before using these medicines. ?? You can also help ease pain by using a hot, wet compress or heating pad. Use this with or withouta medicated skin cream that helps relieves pain. ?? Do stretching exercise as advised by your provider. Typically rest is beneficial for the first few days. Avoid strenuous activity that worsens the pain. ?? Take any prescribed medicines as directed. Follow-up care Follow up with your healthcare provider, or as advised. When to seek medical advice Call your healthcare provider right away if any of these occur: ?? A change in the type of pain. Call if it feels different, becomes more serious, lasts longer, or spreads into your shoulder, arm, neck, jaw, or back. ?? Shortness of breath or pain gets worse when you breathe ?? Weakness, dizziness, or fainting ?? Cough with dark-colored sputum (phlegm) or blood ?? Abdominal pain ?? Dark red or black stools ?? Fever of 100.4??F (38??C) or higher, or as directed by your healthcare provider Cali last reviewed this educational content on 09/03/2018 ?? [phone] The [employer]. All rights reserved. This information is not intended as a substitute for professional medical care. Always follow your healthcare professional's instructions. CHMENT ASSISTANT documented in this encounter Progress Notes Nicole Bowen APRN CNP - 04/01/2021 4:20 PM CST Dash is a 20 year old who is being evaluated via a billable telephone visit. What phone number would you like to be contacted at? [phone] How would you like to obtain your AVS? MyChart Assessment & Plan Contact with or exposure to viral disease - Symptomatic; Yes; 03/29/2021 COVID-19 Virus (Coronavirus) by PCR; Future Mild persistent asthma with acute exacerbation - predniSONE (DELTASONE) 20 MG tablet; Take 2 tablets (40 mg) by mouth daily for 5 days - Flovent refilled Costochondritis - predniSONE (DELTASONE) 20 MG tablet; Take 2 tablets (40 mg) by mouth daily for 5 days FUTURE APPOINTMENTS: - Follow up in 1 week for persistent symptoms, sooner for new or worsening symptoms. Discussed red flag signs to warrant emergent evaluation. See Patient Instructions No follow-ups on file. Nicole Bowen APRN CNP [facility] Direct line to schedule COVID screening/vaccination. [phone] Subjective Dash is a 20 year old who presents for the following health issues HPI Concern for COVID-19 About how many days ago did these symptoms start? 4 days Is this your first visit for this illness? Yes In the 14 days before your symptoms started, have you had close contact with someone with COVID-19 (Coronavirus)? I do not know. Do you have a fever or chills? No Are you having new or worsening difficulty breathing? No Do you have new or worsening cough? Yes, it's a dry cough. Have you had any new or unexplained body aches? No Have you experienced any of the following NEW symptoms? ?? Headache: No ?? Sore throat: YES with cough ?? Loss of taste or smell: No ?? Chest pain: YES- only while coughing, is centered at top of chest, is tender to palpation. Can take a deep breath and hold it. Cough is infrequent. Pain does not radiate to back. Does not feel shortof breath or like his heart is racing. No hx of DVT or PE. Hx of asthma, has been wheezing. ?? Diarrhea: No ?? Rash: No What treatments have you tried? OTC cough medicine Who do you live with? Grandmother, dad, brother, and sister Are you, or a household member, a healthcare worker or a first front ventilator? No Do you live in a assisted, intermediate, or care home? No Do you have a way to get food/medications if quarantined? Yes, I have a friend or family member who can help me. Medication Followup of flovent inhaler ?? Taking Medication as prescribed: yes ?? Side Effects: None ?? Medication Helping Symptoms: yes Review of Systems Constitutional, HEENT, cardiovascular, pulmonary, gi and gu systems are negative, except as otherwise noted. Objective Vitals: No vitals were obtained today due to virtual visit. Physical Exam alert and no distress PSYCH: Alert and oriented times 3; coherent speech, normal rate and volume, able to articulate logical thoughts, able to abstract reason, no tangential thoughts, no hallucinations or delusions His affect is normal and pleasant RESP: No cough, no audible wheezing, able to talk in full sentences Remainder of exam unable to be completed due to telephone visits Phone call duration: 12 minutes CHMENT ASSISTANT documented in this encounter Plan of Treatment Scheduled Orders Name Type Priority Associated Diagnoses Order S chedule Symptomatic; Yes; Lab Routine Contact with or exposur e Expected: 04/01/2021 03/29/2021 COVID-19 to viral disease (Jackson roximate), Expires: Virus (Coronavirus) 05/02/19 22 by PCR documented as of this encounter Visit Diagnoses Diagnosis Contact with or exposure to viral diseas e - Primary Contact with or exposure to other viral diseases Mild persistent asthma with acute exacer bation Unspecified asthma, with exacerbation Costochondritis Tietze's disease documented in this encounter Care Teams Financial Quantitative Analyst Relationship Specialty Start Date End Date Marie Granger MD PCP - General 03/06/15 [facility] [address] [place] [address] Julio César, Referring Physician Surgery 03/06/15 MD Vero Coates Jessica MD Pediatric Gastroenterology 03/06/15 MD Shira [facility] [address] [address] Krishna Jarrett Assigned PCP 11/14/20 MD Arian [address] [place], [place] [id number] documented as of this encounter
--- OUTSIDE RECORDS SUMMARY | 2021-11-11 12:56 | XMS_ITS | Encounter Summary ---
:2000 Author Organization [place] Address [address] [place] [address] Care Team Providers Name Role Phone Marie Granger MD Primary Care Provider Aminata Angela MD Unavailable Unavailable [facility] MD Unavailable [phone] Krishna Jarrett MD Unavailable Encounter Details Date Type Department Care Team Description 08/25/2021 Travel Social History Tobacco Use Types Packs/Day [...] on filedocumented in this encounter Care Teams Application Security Developer Relationship Specialty Start Date End Date Marie Granger MD PCP - General 03/06/15 [facility] [address] [place] [address] Julio César, Referring Physician Surgery 03/06/15 MD Vero Coates Jessica MD Pediatric Gastroenterology 03/06/15 MD Shira [address] [place] [address] Krishna Jarrett Assigned PCP 11/14/20 MD Arian [address] [place] [address] documented as of this encounter
--- OUTSIDE RECORDS SUMMARY | 2021-11-11 12:56 | XMS_ITS | Encounter Summary ---
:2000 Author Organization [place] Address [address] [place] [address] Care Team Providers Name Role Phone Marie Granger MD Primary Care Provider Aminata Angela MD Unavailable Unavailable Caitlin Pham MD Unavailable [phone] Krishna Jarrett MD Unavailable Encounter Details Date Type Department Care Team Description 01/06/2021 Travel Social History Tobacco Use Types Packs/Day Years Used Date Never Smoker Smokeless Tobacco: Never Used Sex Assigned at Date Recorded Not on file COVID-19 Exposure Response Date Recorded In the last month, have you been in contact with No / Unsure 01/06/2021 12:10 PM CDT someone who 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 documented as of this encounter Plan of Treatment Not on filedocumented as of this encounter Visit Diagnoses Not on filedocumented in this encounter Care Teams Print Manager Relationship Specialty Start Date End Date Marie Granger MD PCP - General 03/06/15 [facility] [address] [place] [address] Julio César, Referring Physician Surgery 03/06/15 MD Vero Coates Jessica MD Pediatric Gastroenterology 03/06/15 MD Shira [address] [place], [place] [address] Krishna Jarrett Assigned PCP 11/14/20 MD Arian [address] [place] [address] documented as of this encounter
--- OUTSIDE RECORDS SUMMARY | 2021-11-11 12:56 | XMS_ITS | Encounter Summary ---
:2000 Author Organization [place] Address [address] [place] [address] Care Team Providers Name Role Phone Marie Granger MD Primary Care Provider Aminata Angela MD Unavailable Unavailable Caitlin Pham MD Unavailable [phone] Krishna Jarrett MD Unavailable Encounter Details Date Type Department Care Team Description 01/09/2021 Travel Social History Tobacco Use Types Packs/Day [...] on filedocumented in this encounter Care Teams Delicatessen Slicer Relationship Specialty Start Date End Date Marie Granger MD PCP - General 03/06/15 [facility] [address] [place] [address] Julio César, Referring Physician Surgery 03/06/15 MD Vero Coates Jessica MD Pediatric Gastroenterology 03/06/15 MD Shira [address] [place], [place] [address] Krishna Jarrett Assigned PCP 11/14/20 MD Arian [address] [place] [address] documented as of this encounter
--- OUTSIDE RECORDS SUMMARY | 2021-11-11 12:56 | XMS_ITS | Encounter Summary ---
:2000 Author Organization [place] Address [address] [place] [address] Care Team Providers Name Role Phone Marie Granger MD Primary Care Provider Aminata Angela MD Unavailable Unavailable Caitlin Pham MD Unavailable [phone] Krishna Jarrett MD Unavailable Reason for Referral Consultation (Routine) - Pending Review Specialty Diagnoses / Procedures Referred By Contact Refer red To Contact Ophthalmology Diagnoses Visual disturbance Mariela Mahoney, ARTEM [facility]hthal[facility] [address] [address] Phone: Fax: Referral ID Status Reason Start Date Expiration Date Visits V isits Requested Authorized [id number] Pending 04/18/2021 04/18/2022 1 1 Review Scheduling Instructions Please schedule next available general o phthalmology - NKLER INSPECTOR Encounter Details Date Type Department Care Team Description 04/18/2021 Transcribe Orders GENERIC EXTERNAL Provider, Generic V isual disturbance DATA DEPARTMENT External Data (Primary Dx ) Social History Tobacco Use Types Packs/Day Years Used Date Never Assessed Sex Assigned at Date Recorded Not on file COVID-19 Exposure Response Date Recorded In the last month, have you been in contact with No / Unsure 04/01/2021 2:59 PM SPRINKLER INSPECTOR someone who 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 documented as of this encounter Plan of Treatment Scheduled Referrals Name Type Priority Associated Diagnoses Order S [facility] Adult Eye Referral Referral Routine Visual disturbance Exp ected: 04/18/2021 (Approximate), Expires: 04/18/2022 documented as of this encounter Visit Diagnoses Diagnosis Visual disturbance - Primary Unspecified visual disturbance documented in this encounter Care Teams Barrel Header Relationship Specialty Start Date End Date Marie Granger MD PCP - General 03/06/15 [facility] [address] [place] [address] Julio César, Referring Physician Surgery 03/06/15 MD Vero Coates Jessica MD Pediatric Gastroenterology 03/06/15 MD Shira [address] [place], [place] [phone] Krishna Jarrett Assigned PCP 11/14/20 MD Arian [address] [place], [place] [id number] documented as of this encounter
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
--- OUTSIDE RECORDS SUMMARY | 2021-11-11 12:56 | XMS_ITS | Encounter Summary ---
:2000 Author Organization [place] Address [address] [place] [address] Care Team Providers Name Role Phone Marie Granger MD Primary Care Provider Aminata Angela MD Unavailable Unavailable Caitlin hPam MD Unavailable [phone] Krishna Jarrett MD Unavailable Reason for Visit Reason Comments Headache Encounter Details Date Type Department Care Team Description 10/10/2021 Emergency [facility] Emergency Dept [address] [place] [address] Social History Tobacco Use Types Packs/Day Years [...] Mass Index 19.49 10/10/2021 1:36 AM CDT documented in this encounter Medications at Time of Discharge Medication Sig Dispensed Refills Start Date End Date albuterol (PROAIR Inhale 2 puffs into 18 g 11 HFA/PROVENTIL the lungs every 4 HFA/VENTOLIN HFA) 108 (90 hours as needed for Base) MCG/ACT shortness of breath / inhalerIndications: Mild dyspnea intermittent asthma without complication albuterol (PROVENTIL HFA) Inhale 2 puffs into 18 g 0 0 08/25/2021 108 (90 [place]) MCG/ACT the lungs every 6 inhalerIndications: Mild hours persistent asthma with acute exacerbation AMITRIPTYLINE HCL PO Take 25 mg by mouth 0 nightly as needed escitalopram (LEXAPRO) 10 Take 10 mg by mouth 0 0 09/04/2020 MG tablet daily fluticasone (FLONASE) 50 [place] 1 spray into 16 g 0 MCG/ACT nasal both nostrils daily sprayIndications: Sinus drainage fluticasone (FLOVENT HFA) Inhale 1 puff into 12 g 3 110 MCG/ACT the lungs 2 times inhalerIndications: Mild daily persistent asthma with acute exacerbation omeprazole (PRILOSEC) 40 Take 1 capsule (40 30 capsule 3 MG capsuleIndications: mg) by mouth daily Intractable vomiting with Take 30 minutes nausea, vomiting of before a meal. unspecified type rizatriptan (MAXALT-WATERMASTER) 0 03/31/2021 10 MG ODT documented as of this encounter ED Notes Rick Fischer RN - 10/10/2021 2:02 AM CDT Paper forms completed: Declination of Medical Screening Exam Completed by: Rick Leach RN Rick Fischer RN - 10/10/2021 1:39 AM CDT [facility] ED Arrival Note Arrives through triage. ABC's intact. A &O X4. . Pt arrives with c/o R frontal migraine since 5pm. Hx of migraines. Takes medication at home but does not recall the name. Reports that this migraineis also making his eyes hurt, which is unusual for him. Pain level is 2/10. No neurologic deficits noted, denies photophobia. Visitors during triage: None Triage Interventions: N/A Ambulatory: Yes Meets Stroke Criteria?: No Meets Trauma Criteria?: No Shock Index: N/A, for provider reference Directed to: Triage Lobby Pronouns: he/him Triage Assessment Row Name 10/10/21 0139 Triage Assessment (Adult) Airway WDL WDL Respiratory WDL Respiratory WDL WDL Skin Circulation/Temperature WDL Skin Circulation/Temperature WDL WDL Cardiac WDL Cardiac WDL WDL Peripheral/Neurovascular WDL Peripheral Neurovascular WDL WDL Cognitive/Neuro/Behavioral WDL Cognitive/Neuro/Behavioral WDL WDL documented in this encounter Plan of Treatment Not on filedocumented as of this encounter Visit Diagnoses Not on filedocumented in this encounter Care Teams Infantryman Relationship Specialty Start Date End Date Marie Granger MD PCP - General 03/06/15 [facility] [address] [place] [address] Julio César, Referring Physician Surgery 03/06/15 MD Vero Coates Jessica MD Pediatric Gastroenterology 03/06/15 MD Shira [address] [place] [address] Krishna Jarrett Assigned PCP 11/14/20 MD Arian [address] [place] [address] documented as of this encounter
--- OUTSIDE RECORDS SUMMARY | 2021-11-11 12:56 | XMS_ITS | Encounter Summary ---
:2000 Author Organization [facility] Address [address] [place] [address] Care Team Providers Name Role Phone Marie Granger MD Primary Care Provider Aminata Angela MD Unavailable Unavailable Caitlin Pham MD Unavailable [phone] Krishna Jarrett MD Unavailable Encounter Details Date Type Department Care Team Description 01/08/2021 Travel Social History Tobacco Use Types Packs/Day [...] on filedocumented in this encounter Care Teams Building And Construction Manager Relationship Specialty Start Date End Date Marie Granger MD PCP - General 03/06/15 [facility] [address] [place] [address] Julio César, Referring Physician Surgery 03/06/15 MD Vero Coates Jessica MD Pediatric Gastroenterology 03/06/15 MD Shira [address] [place], [place] [id number] Krishna Jarrett Assigned PCP 11/14/20 MD Arian [address] [place] [address] documented as of this encounter
--- OUTSIDE RECORDS SUMMARY | 2021-11-11 12:56 | XMS_ITS | Encounter Summary ---
:2000 Author Organization [place] Address [facility] [place] [address] Care Team Providers Name Role Phone Marie Granger MD Primary Care Provider Aminata Angela MD Unavailable [facility]available [facility] Un[facility] [phone] Krishna Medina MD Unavailable Reason for Visit Reason Comments Establish Care Results CT head Encounter Details Date Type Department Care Team Description 01/13/2021 Office Visit [facility] Krishna Medina Pre-synco pe (Primary Dx); Clinic Lianna Don MD Mild intermittent asthma without complic ation; [place] [address] Encounter for immunization [address] [id number] Social History Tobacco Use Types Packs/Day [...] Sign Reading Time Taken Comments Blood Pressure 102/68 01/13/2021 2:59 PM CDT Pulse 65 01/13/2021 2:59 PM CDT Temperature 36.7 ??C (98 ??F) 01/13/2021 2:59 PM CDT Respiratory Rate - - Oxygen Saturation 99% 01/13/2021 2:59 PM CDT Inhaled Oxygen Concentration - - Weight 58.7 kg (129 lb 8 oz) 01/13/2021 2:59 PM CDT Height - - Body Mass Index 18.58 11/29/2020 1:04 PM CDT documented in this encounter Patient Instructions Patient InstructionsKrishna Medina MD - 01/13/2021 3:00 PM CDT - Re-establish with neurologist. Let me know if I can help with that. - documented in this encounter Progress Notes Krishna Medina MD - 01/13/2021 3:00 PM CDT Assessment & Plan Pre-syncope Unclear etiology. Reviewed his CT head with him today. It was read as totally normal. Lab work-up done a couple of weeks ago was also normal. He is wondering if it was a migraine and certainly may wellhave been an aura to a migraine as he reports having a terrible migraine shortly thereafter for the next day or so. I explained to him that amitriptyline actually is a daily preventative migraine medication and he appears to already be on it which he confirms to me today. He has last seen a neurologist roughly 2 years ago. He reports being seen in [place]. He would like to continue being seen by the neurologist (I did offer a referral to our headache clinic) and I encouraged him to reached out to the neurology clinic to reestablish care and discuss next steps in migraine treatment. Mild intermittent asthma without complication Discussed that he is on the lowest dose of Flovent and next step would be to increase him to 110 mcgtwice daily. He was hoping to do that today and I did prescribe this increased dosage. I encouraged him to let me know if he feels like his asthma is still inadequately controlled on this higher dose and we can discuss further step of therapy at that time. - fluticasone (FLOVENT HFA) 110 MCG/ACT inhaler; Inhale 1 puff into the lungs 2 times daily Encounter for immunization - HC FLU VAC PRESRV FREE QUAD SPLIT VIR > 6 MONTHS IM ([id number]) - PPSV23, IM/SUBQ (2+ YRS) - [id number] Return in about 6 months (around 07/14/2021) for Physical Exam. Krishna Medina MD [facility] ARACELI Bowling is a 20 year old who presents today for follow-up. He was recently seen by our acute care provider for a presyncopal events. He is wondering if this is migraines. He is wondering if there is a daily medication for him to take to help prevent migraines. He feels like his migraines have worsened. He tells me he had a very bad migraine after he had this presyncopal episode. Head CT scan was donelast week and we reviewed it today. It was read as normal. He has not had a similar events and has actually felt quite well since that recent presyncopal episode. He feels like his asthma is better controlled on the Flovent but is still inadequately controlled. He is wondering about next steps. Review of Systems Constitutional, HEENT, cardiovascular, pulmonary systems are negative, except as otherwise noted. Objective BP 102/68 Pulse 65 Temp 98 ??F (36.7 ??C) (Tympanic) Wt 58.7 kg (129 lb 8 oz) SpO2 99% BMI18.58 kg/m?? Body mass index is 18.58 kg/m??. Physical Exam GENERAL: alert and in no distress. Thin. EYES: conjunctivae/corneas clear. EOMs grossly intact HENT: NC/AT, facies symmetric. RESP: CTAB, no w/r/r. A bit tight. CV: RRR, no m/r/g. GI: NT, ND, without rebound tenderness or guarding MSK: Moves all four extremities freely. SKIN: No significant ulcers, lesions, or rashes on the visualized portions of the skin NEURO: Alert. Oriented. documented in this encounter Plan of Treatment Not on filedocumented as of this encounter Visit Diagnoses Diagnosis Pre-syncope - Primary Syncope and collapse Mild intermittent asthma without complic ation Unspecified asthma Encounter for immunization Need for other specified prophylactic va ccination against single bacterial disease documented in this encounter Care Teams Drug Abuse Resistance Education Officer Relationship Specialty Start Date End Date Marie Granger MD PCP - General 03/06/15 [facility] [address] [place] [address] Julio César, Referring Physician Surgery 03/06/15 MD Vero Coates Jessica MD Pediatric Gastroenterology 03/06/15 MD Shira [facility] [address] [address] Krishna Medina Assigned PCP 11/14/20 MD Arian [address] [place], [place] [id number] documented as of this encounter
--- OUTSIDE RECORDS SUMMARY | 2021-11-11 12:56 | XMS_ITS | Encounter Summary ---
:2000 Author Organization [place] Address [address] [place] [address] Care Team Providers Name Role Phone Marie Granger MD Primary Care Provider Aminata Angela MD Unavailable Unavailable Caitlin Pham MD Unavailable [phone] Krishna Jarrett MD Unavailable Encounter Details Date Type Department Care Team Description 11/29/2020 Travel Social History Tobacco Use Types Packs/Day [...] on filedocumented in this encounter Care Teams Briar Wood Sorter Relationship Specialty Start Date End Date Marie Granger MD PCP - General 03/06/15 [facility] [address] [place] [address] Julio César, Referring Physician Surgery 03/06/15 MD Vero Coates Jessica MD Pediatric Gastroenterology 03/06/15 MD Shira [address] [place], [place] [address] Krishna Jarrett Assigned PCP 11/14/20 MD Arian [address] [place] [address] documented as of this encounter
--- OUTSIDE RECORDS SUMMARY | 2021-11-11 12:57 | XMS_ITS | Encounter Summary ---
:2000 Author Organization [place] Address [address] [place] [address] Care Team Providers Name Role Phone Unavailable Primary Care Provider Unavailable Encounter Details Date Type Department Care Team Description 06/05/2003 Emergency room Hung Israel MD EMERGENCY PHYSIC [place] [facility] [address] [place], [place] [address] (Wo rk) Social History Tobacco Use Types Packs/Day Years Used Date Never Assessed Sex Assigned at Date Recorded Not on file documented as of this encounter ED Notes Hung Israel - 06/03/2003 12:00 AM SHEARER OPERATOR CHIEF COMPLAINT: My child has a fever. HISTORY OF PRESENT ILLNESS: Sage Cheema is a 3-year- old male who presents to the emergency department ambulatory accompanied by the parents at 0515 hours in the morning. The mother states that earlier in the morning the child called out to her. She went into his bedroom and noted that his cheeks were red and he felt hot. He has had no recent upper respiratory infections. There has been no vomiting or diarrhea. The child's behavior was completely normal during the day. At this point they have brought him in for evaluation. PAST MEDICAL HISTORY: Otitis media. MEDICATIONS: None. ALLERGIES: No known allergies. PHYSICAL EXAMINATION: INITIAL VITAL SIGNS: Show a pulse of 143, respiratory rate of 28, temperature is 102.6 degrees, weight was 14.5 kilograms. GENERAL APPEARANCE: Shows a 3-year-old who is quietly sitting on the father's lap. HEENT: The TMs were clear. Eyes were clear with a conjugate gaze. There is no matter or discharge. Face was symmetric. Oropharynx was clear. NECK: There was no adenopathy. The neck was supple. CHEST: Lungs were clear. HEART: Regular. ABDOMEN: Soft and nontender. SKIN: There was no rash or lesions noted on the chest, abdomen, or extremities. EMERGENCY DEPARTMENT COURSE: I did inform the parents that at this time the child looks well. He was given 20 mg/kg of Tylenol. He was rechecked at 0545 hours and at that time he was actively playing in all the furniture and bouncing around the room. DIAGNOSIS: Febrile illness - unclear etiology. At this point I do not believe any further workup is warranted. The child is quite active and playful and has no overt evidence for the etiology of the fever. However, he appears non-toxic. PLAN: The child will be discharged to home with the parents. They will continue to use Tylenol 20 mg/kg using 1 3/4 tsp of the pourable 160 mg/5 cc Tylenol. They will increase h is fluids. They will follow up with Dr. Narvaez in the clinic this week. If any other symptoms develop, will return to the emergency department sooner if his condition should worsen. HUNG ISRAEL MD [place]: [facility] Document: [id number] [place], [place] Name: SAGE CHEEMA EMERGENCY ROOM ENCOUNTER Page 3 of 2 LCN: ER DSC: 06/03/2003 [place], [place] Name: SAGE CHEEMA MR#: : Admit Date: -83 2000 06/03/2003 Doctor: HUNG ISRAEL MD EMERGENCY ROOM ENCOUNTER Page 1 of 2 RER OPERATOR documented in this encounter Plan of Treatment Not on filedocumented as of this encounter Visit Diagnoses Not on filedocumented in this encounter
--- OUTSIDE RECORDS SUMMARY | 2021-11-11 12:57 | XMS_ITS | Encounter Summary ---
:2000 Author Organization [place] Address [facility] [address] Care Team Providers Name Role Phone Marie Granger MD Primary Care Provider Aminata Angela MD Unavailable [facility] [phone] Reason for Visit Reason Comments Epistaxis for the past two days. [place] like he was going to pass out today. Encounter Details Date Type Department Care Team Description 03/23/2017 Emergency [facility] Benny Mena MD Epistaxis [facility] Emergency Dept [facility] [address] [place] [id number] [place] [address] (Wo rk) Social History Tobacco Use Types Packs/Day Years Used Date Never Assessed Sex Assigned at Date Recorded Not on file documented as of this encounter Last Filed Vital Signs Vital Sign Reading Time Taken Comments Blood Pressure 120/82 03/23/2017 12:15 PM [facility] Pulse 100 03/23/2017 12:15 PM [facility] Temperature 36.6 ??C (97.9 ??F) 03/23/2017 10:54 AM [facility] Respiratory Rate 16 03/23/2017 12:15 PM [facility] Oxygen Saturation 99% 03/23/2017 12:15 PM [facility] Inhaled Oxygen Concentration - - Weight 54.9 kg (121 lb) 03/23/2017 10:54 AM [facility] Height 175.3 cm (5' 9) 03/23/2017 10:54 AM [facility] Body Mass Index 17.87 03/23/2017 10:54 AM [facility] Body Mass Index Percentile 6.99 % 03/23/2017 10:[address] Growth Chart: [facility] (Boys, 2-20 Years) documented in this encounter Discharge Instructions Discharge InstructionsBenny Mena MD - 03/23/2017 11:53 AM CST Discharge Instructions Epistaxis Today you were seen for a nosebleed. Nosebleeds (the medical term is epistaxis) are very common. Almost every person has had at least one in their lifetime. Although the amount of blood loss can appear dramatic, nosebleeds rarely cause serious problems. The most common causes are dry air or nose pick ing, but they also are common in people who have allergies, high blood pressure, or are on blood thinners (such as Coumadin, Aspirin or Plavix). If you or your child gets a nosebleed, the important thing is to know how to take care of it. With the right self-care, most nosebleeds will stop on their own. Generally, every Emergency Department visit should have a follow-up clinic visit with either a primary or a specialty clinic/provider. Please follow-up as instructed by your emergency provider today. Return to the Emergency Department if: ??? Your nose is bleeding a very large amount of blood and you are unable to stop it. ??? You get very pale, faint, or tired. ??? You cannot get the bleeding to stop after following these instructions. Treatment: ??? Your provider may tell you to use a decongestant nose spray, like Afrin?? (oxymetazoline), in both nostrils in the morning and at night for the next three days. Do not use this medicine for more than three days at a time. If you do, it will cause nasal congestion. ??? Use a moisturizer. A small amount of Vaseline?? to the inside of your nostrils for moisture before bed is one option. There are nasal sprays available [id number] for this purpose as well. Using a humidifier in your bedroom or home will help as well when the air is dry. ??? For the next three days, do not blow your nose or put anything in your nose. You may sniffle, ordab the outside of your nose. ??? Do not bend with your head below your waist for the next three days. Do not lift anything so heavy that you have to strain. ??? If you received nasal packing, please do not remove the packing until seen by an Ear, Nose, and Throat (ENT) specialist. If antibiotics have been given with the packing, please take as directed. If your nose starts to bleed again: ??? Blow your nose to get rid of some of the clots that have formed inside your nostrils. This may increase the bleeding temporarily, but that is okay. ??? Mcneal decongestant nose spray (like Afrin??) into both nostrils to constrict the blood vessels. ??? Sit or stand while bending forward slightly at the waist. Do not lie down or tilt your head back. This may cause you to swallow blood and can lead to vomiting. ??? Sales Clerk [employer] the soft part of BOTH nostrils at the bottom of your nose and squeeze your nose closed for at least 5 minutes (for children) or 10 to 15 minutes (for adults). Use a clock to time yourself. Do not release the pressure every so often to check whether the bleeding has stopped. Many people hurt their chances of stopping the bleeding by releasing the pressure too soon or too often. If you follow the steps outlined above, and your nose continues to bleed, repeat all the steps once more. Apply pressure for a total of at least 30 minutes. If you continue to bleed even then, seek medical attention. If you were given a prescription for medicine here today, be sure to read all of the information (including the package insert) that comes with your prescription. This will include important information about the medicine, its side effects, and any warnings that you need to know about. The pharmacist who fills the prescription can provide more information and answer questions you may have about the medicine. If you have questions or concerns that the pharmacist cannot address, please call or return to the Emergency Department. Remember that you can always come back to the Emergency Department if you are not able to see your regular provider in the amount of time listed above, if you get any new symptoms, or if there is anything that worries you. [facility] documented in this encounter Medications at Time of Discharge Medication Sig Dispensed Refills Start Date End Date AMITRIPTYLINE HCL PO Take 25 mg by 0 mouth nightly as needed omeprazole (PRILOSEC) 40 Take 1 capsule (40 30 capsule 3 MG capsuleIndications: mg) by mouth daily Intractable vomiting with Take 30 minutes nausea, vomiting of before a meal. unspecified type Methylphenidate HCl Take 54 mg by 0 (CONCERTA PO) mouth daily naproxen sodium 220 MG Take 220 mg by 0 11/29/2020 capsule mouth daily ondansetron (ZOFRAN ODT) 8 Take 1 tablet (8 20 tablet 1 11/29/2020 MG disintegrating mg) by mouth every tabletIndications: 8 hours as needed Intractable vomiting with for nausea nausea, vomiting of unspecified type ONDANSETRON PO Take 4 mg by mouth 0 every 6 hours as needed documented as of this encounter ED Notes Benny Mena MD - 03/23/2017 10:52 AM CST History Chief Complaint: Epistaxis HPI Dash Collier is a 16 year old male who presents for evaluation of epistaxis. The patient has had several episodes of epistaxis over the past couple of days, and his mother states that he has not been feeling well because of them. The patient endorses dizziness, lightheadedness, and weakness, and his mother states that he has exhibited some pallor as well as decreased appetite. His mother denies recent fever or illness. Today, the patient was out shopping and called his mother as he was feeling increased dizziness while out. The mother denies significant problems with epistaxis. The bleeding is on the right side of his nose, and the patient states that he takes him five minutes to get thisunder control normally. Allergies: No Known Drug Allergies Medications: Concerta Ondansetron Naproxen sodium Amitriptyline Prilosec Zofran Past Medical History: ADHD Migraines Asthma Cyclic vomiting syndrome Abdominal pain Past Surgical History: Arm fracture repair and hardware removal Children's hernia repair Family History: Celiac disease - Mother Social History: The patient was accompanied to the ED by his mother. Marital Status: Single Review of Systems Constitutional: Positive for appetite change. Negative for fever. HENT: Positive for nosebleeds. Skin: Positive for pallor. Neurological: Positive for dizziness, weakness and light-headedness. All other systems reviewed and are negative. Physical Exam First Vitals: BP: 131/84 Pulse: 126 Temp: 97.9 ??F (36.6 ??C) Resp: 20 Height: 175.3 cm (5' 9) Weight: 54.9 kg (121 lb) SpO2: 98 % Lying Orthostatic BP: 117/78 Lying Orthostatic Pulse: 103 bpm Standing Orthostatic BP: 115/79 Standing Orthostatic Pulse: 140 bpm Physical Exam Constitutional: The patient is oriented to person, place, and time. Pale. HENT: Head: Atraumatic Right Ear: Normal Left Ear: Normal Nose: Nose normal. Mouth/Throat: Oropharynx is clear and moist. No erythema or exudate. Eyes: Conjunctivae and EOM are normal. Pupils are equal, round, and reactive to light. No discharge Neck: Normal range of motion. Neck supple. Cardiovascular: Normal rate, regular rhythm, no murmur gallops or rubs. Intact distal pulses. Pulmonary/Chest: CTA bilaterally. No wheezes rale or rhonchi. Abdominal: Soft. Non tender. No masses Musculoskeletal: No edema. No bony deformity. Normal range of motion Lymphadenopathy: The patient has no cervical adenopathy. Neurological: The patient is alert and oriented to person, place, and time. The patient has normal strength and normal reflexes. No cranial nerve deficit. Coordination normal. Skin: Skin is warm and dry. No rash noted. The patient is not diaphoretic. Psychiatric: The patient has a normal mood and affect. Emergency Department Course ECG: Indication: Epistaxis Completed at 1127. Read at 1137. Normal sinus rhythm Normal ECG Rate 95 bpm. NC interval 130. QRS duration 96. QT/QTc 346/434. P-R-T axes 82 84 79. Laboratory: Laboratory findings were communicated with the patient and family who voiced understanding of the findings. CBC: AWNL. (WBC 6.2, HGB 15.0, PLT 330) BMP: BUN 6 (L), Calcium 8.9 (L) o/w WNL (Creatinine 0.68) Emergency Department Course: Nursing notes and vitals reviewed. EKG obtained in the ED, see results above. IV was inserted and blood was drawn for laboratory testing, results above. 1059: I performed an exam of the patient as documented above. 1154: Patient rechecked and updated. I personally reviewed the laboratory results with the Patient and mother and answered all related questions prior to discharge. Impression & Plan Medical Decision Making: Dash Collier is a 16 year old male who presents to the emergency department today with a couple day history of intermittent bloody nose and feeling lightheadedness today. Work up here in the emergency department is unremarkable. There are no signs of anemia, thrombocytopenia or other acute abn ormality. He has no active bleeding. I suspect this is more due to dry nasal mucosa and I feel that he can be safely discharged to home. He was given instructions on controlling nose bleed in the future using a saline nasal spray and a dehumidifier at home and he should follow up with his primary careprovider or return to the emergency department if worsened. Diagnosis: ICD-10-CM 1. Epistaxis R04.0 Disposition: Discharged to home. Scribe Disclosure: Carmela Carrion, am serving as a scribe at 10:59 AM on 03/23/2017 to document services personally performed by Benny Mena MD based on my observations and the provider's statements to me. 03/23/2017 EMERGENCY DEPARTMENT Benny Mena MD 03/23/17 1448 [facility] documented in this encounter Plan of Treatment Not on filedocumented as of this encounter Procedures Procedure Name Priority Date/Time Associated Comments Diagnosis EKG 12-LEAD, TRACING STAT 03/23/2017 11:27 Res ults for this ONLY AM [facility] procedure are i n the results section. CBC WITH PLATELETS & STAT 03/23/2017 11:14 Res ults for this DIFFERENTIAL AM [facility] procedure are i n the results section. BASIC METABOLIC PANEL STAT 03/23/2017 11:14 Re sults for this AM [facility] procedure are i n the results section. documented in this encounter Results EKG 12 lead (03/23/2017 11:27 AM [facility]) [facility] gist Method Time Signature Interpretation ECG Click View RADIOLOGY Image link RESULTS to view waveform and result Specimen (Source) Anatomical Collection Method Collection Time Re ceived Time Location / / Volume Laterality 03/23/2017 11:27 AM [facility] Benny Mena MD ECG ORDERABLES Performing Organization Address City/State/ZIP Code Phon e Number RADIOLOGY RESULTS (ABNORMAL) Basic metabolic panel (03/23/2017 11:14 AM [facility]) P athologist Signature Sodium 139 133 - 144 03/23/2017 [place] mmol/L 11:50 AM [facility] Potassium 4.0 3.4 - 5.3 03/23/2017 [place] mmol/L 11:50 AM [facility] Chloride 107 98 - 110 03/23/2017 [place] mmol/L 11:50 AM [facility] Carbon Dioxide 28 20 - 32 03/23/2017 [place] mmol/L 11:50 AM [facility] Anion Gap 4 3 - 14 03/23/2017 [place] mmol/L 11:50 AM [facility] Glucose 90 70 - 99 03/23/2017 [place] mg/dL 11:50 AM [facility] Urea Nitrogen 6 (L) 7 - 21 03/23/2017 [place] mg/dL 11:50 AM [facility] Creatinine 0.68 0.50 - 03/23/2017 [place] 1.00 mg/dL 11:50 AM [facility] GFR Estimate >90 >60 03/23/2017 [place] mL/min/1.7 11:[address] Comment: Non GFR Calc GFR Estimate If >90 >60 mL/min/1.7m2 03/23/2017 11:[address] [facility] Comment: GFR Calc Calcium 8.9 (L) 9.1 - 10.3 mg/dL 03/23/2017 11:50 AM [facility] Specimen Anatomical Collection Method Collection Time Receive d Time (Source) Location / / Volume Laterality Blood specimen 03/23/2017 11:14 7 (specimen) AM [facility] 11:30 AM [facility] Benny Mena MD LAB - BLOOD ORDERABLES Performing Organization Address City/State/ZIP Code Phon e Number M [facility] [address] [place] [id number] [phone] [facility] [address] [place] [address], [place] [phone] CBC with platelets + differential (03/23/2017 11:14 AM [facility]) [facility] gist Method Time Signature WBC 6.2 4.0 - 03/23/2017 [place] 11.0 11:41 AM [facility] 10e9/L [facility] RBC Count 5.09 3.7 - 5.3 03/23/2017 [place] 10e12/L 11:41 AM [facility] Hemoglobin 15.0 11.7 - 03/23/2017 [facility] 15.7 g/dL 11:41 AM [facility] Hematocrit 43.7 35.0 - 03/23/2017 [facility] 47.0 % 11:41 AM [facility] MCV 86 77 - 100 03/23/2017 [facility] fl 11:41 AM [facility] MCH 29.5 26.5 - 03/23/2017 [facility] 33.0 pg 11:41 AM [facility] MCHC 34.3 31.5 - 03/23/2017 [facility] 36.5 g/dL 11:41 AM [facility] RDW 12.8 10.0 - 03/23/2017 [facility] 15.0 % 11:41 AM [facility] Platelet Count 330 150 - 450 03/23/2017 [facility] 10e9/L 11:41 AM [facility] Diff Method Automated 03/23/2017 [facility] Method 11:41 AM [facility] % Neutrophils 53.3 % 03/23/2017 [facility] 11:41 AM [facility] % Lymphocytes 32.2 % 03/23/2017 [facility] 11:41 AM [facility] % Monocytes 10.7 % 03/23/2017 [facility] 11:41 AM [facility] % Eosinophils 3.2 % 03/23/2017 [facility] 11:41 AM [facility] % Basophils 0.6 % 03/23/2017 [facility] 11:41 AM [facility] % Immature 0.0 % 03/23/2017 [facility] Granulocytes 11:41 AM [facility] Absolute 3.3 1.3 - 7.0 03/23/2017 [facility] Neutrophil 10e9/L 11:41 AM [facility] Absolute 2.0 1.0 - 5.8 03/23/2017 [place] Lymphocytes 10e9/L 11:41 AM [facility] Absolute 0.7 0.0 - 1.3 03/23/2017 [place] Monocytes 10e9/L 11:41 AM [facility] Absolute 0.2 0.0 - 0.7 03/23/2017 [place] Eosinophils 10e9/L 11:41 AM [facility] Absolute 0.0 0.0 - 0.2 03/23/2017 [place] Basophils 10e9/L 11:41 AM [facility] Abs Immature 0.0 0 - 0.4 03/23/2017 [place] Granulocytes 10e9/L 11:41 AM [facility] Specimen Anatomical Collection Method Collection Time Receive d Time (Source) Location / / Volume Laterality Blood specimen 03/23/2017 11:14 7 (specimen) AM [facility] 11:30 AM [facility] Benny Mena MD LAB - BLOOD ORDERABLES Performing Organization Address City/State/ZIP Code Phon e Number M [facility] [address] [place] [address] [phone] [facility] [address] [place] [address], [facility] [phone] documented in this encounter Visit Diagnoses Diagnosis Epistaxis documented in this encounter Care Teams Trademark Attorney Relationship Specialty Start Date End Date Marie Granger MD PCP - General 03/06/15 [facility] [address] [place] [address] Julio César, Referring Physician Surgery 03/06/15 MD Vero Coates Jessica MD Pediatric Gastroenterology 03/06/15 MD Shira [facility] [address] [address] documented as of this encounter
--- OUTSIDE RECORDS SUMMARY | 2021-11-11 12:57 | XMS_ITS | Encounter Summary ---
:2000 Author Organization [place] Address [address] [place] [address] Care Team Providers Name Role Phone Marie Granger MD Primary Care Provider Aminata Angela MD Unavailable Unavailable Caitlin Pham MD Unavailable [phone] Encounter Details Date Type Department Care Team Description 11/01/2020 Travel Social History Tobacco Use Types Packs/Day Years Used Date Never Smoker Smokeless Tobacco: Never Used Sex Assigned at Date Recorded Not on file COVID-19 Exposure Response Date Recorded In the last month, have you been in contact with No / Unsure 11/01/2020 6:44 PM CDT someone who 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 documented as of this encounter Plan of Treatment Not on filedocumented as of this encounter Visit Diagnoses Not on filedocumented in this encounter Care Teams Recruiting Operations Consultant Relationship Specialty Start Date End Date Marie Granger MD PCP - General 03/06/15 [facility] [address] [place] [address] Julio César Referring Physician Surgery 03/06/15 MD Vero Coates Jessica MD Pediatric Gastroenterology 03/06/15 MD Shira [address] [place] [address] documented as of this encounter
--- OUTSIDE RECORDS SUMMARY | 2021-11-11 12:57 | XMS_ITS | Encounter Summary ---
:2000 Author Organization [place] Address [address] [place] [address] Care Team Providers Name Role Phone Marie Granger MD Primary Care Provider Aminata Angela MD Unavailable Unavailable Caitlin Pham MD Unavailable [phone] Encounter Details Date Type Department Care Team Description 07/17/2020 Travel Social History Tobacco Use Types Packs/Day Years Used Date Never Smoker Smokeless Tobacco: Never Used Sex Assigned at Date Recorded Not on file COVID-19 Exposure Response Date Recorded In the last month, have you been in contact with No / Unsure 07/17/2020 10:54 AM CDT someone who 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 documented as of this encounter Plan of Treatment Not on filedocumented as of this encounter Visit Diagnoses Not on filedocumented in this encounter Care Teams Tour Leader Relationship Specialty Start Date End Date Marie Granger MD PCP - General 03/06/15 [facility] [address] [place] [address] Julio César Referring Physician Surgery 03/06/15 MD Vero Coates Jessica MD Pediatric Gastroenterology 03/06/15 MD Shira [address] [place] [address] documented as of this encounter
--- OUTSIDE RECORDS SUMMARY | 2021-11-11 12:57 | XMS_ITS | Encounter Summary ---
:2000 Author Organization [facility] Address [address] [place] [address] Care Team Providers Name Role Phone Marie Granger MD Primary Care Provider Aminata Angela MD Unavailable Unavailable Caitlin Pham MD Unavailable [phone] Reason for Visit Reason Comments Consult abdominal pain Encounter Details Date Type Department Care Team Description 04/22/2015 Office Visit [facility] Caitlin Pham Abdomi nal pain, generalized (Primary Dx); [facility] Pediatric MD Shira Diarrhea; Specialty Clinic [address] [facility] Intractable vomiting with nausea, vomiti ng of unspecified type; [address] [facility] [place], [place] Migraine without aura and wi thout status migrainosus, not intractable [facility] [address] [address] [phone] [place], [place] (Work) [address] [phone] Social History Tobacco Use Types Packs/Day Years Used Date Never Assessed Sex Assigned at Date Recorded Not on file documented as of this encounter Last Filed Vital Signs Vital Sign Reading Time Taken Comments Blood Pressure 125/89 04/22/2015 2:45 PM DRILLING MANAGER Pulse 100 04/22/2015 2:45 PM DRILLING MANAGER Temperature - - Respiratory Rate - - Oxygen Saturation - - Inhaled Oxygen Concentration - - Weight 46.3 kg (102 lb 1.2 oz) 04/22/2015 2:45 PM DRILLING MANAGER Height 169.5 cm (5' 6.73) 04/22/2015 2:45 PM DRILLING MANAGER Body Mass Index 16.12 04/22/2015 2:45 PM DRILLING MANAGER Body Mass Index Percentile 2.91 % 04/22/2015 2:45 PM CS T Growth Chart: [facility] (Boys, 2-20 Years) documented in this encounter Patient Instructions Patient InstructionsStCaitlin wong MD - 04/22/2015 4:03 PM DRILLING MANAGER Labs today. Start omeprazole 40mg daily. Best given 30 minutes before breakfast. Okay to use Zofran every 8 hours as needed. Continue amitriptyline as instructed by neurology. Follow up in 2 months. Please call in 2-3 weeks if no improvement in symptoms. LING MANAGER documented in this encounter Progress Notes Caitlin Pham MD - 04/22/2015 3:14 PM CST Images from the original note were not included. Caitlin Pham MD Apr 22, 2015 Initial Outpatient Consultation Medical History: We saw Dash in the Pediatric Gastroenterology clinic as a consultation from Marie Granger for our medical opinion regarding CC: 14 year old with abdominal pain, nausea and vomiting. History obtained from the patient, his mother and review of outside medical records. Dash is a 14 year old male with h/o asthma and ADHD who presents with abdominal pain, nausea and vomiting. Dash reports stabbing, generalized abdominal pain that typically occurs after eating. The pain lasts for hours and is associated with headache. No vision changes but reports photophobia. These episodes are associated either with nausea and vomiting or diarrhea. His usual bowel movements consist of soft formed daily stools. Despite being soft, Dash reports that they are hard to pass andpainful. When Dash has diarrhea, the stools are watery and associated with urgency. No gross rectal bleeding. Dash's last severe episode was 03/20-03/22/15, when he had abdominal pain, headache and emesis. Also reports h/o sporadic fevers since 15mo old. Usually up to 102. In early February, reports fever up to 104. Work up includes labs on 02/04 with normal CBC, ESR, CRP, electrolytes and TSH. LFTs were normal except for AST 2x UNL. Urinalysis was normal and urine drug screen was also negative. Previous imaging includes RUQ US with possible biliary sludge followed by iva HIDA scan on 02/26/15 (EF 65%). Abd/pelvic CT with contrast was performed 3 days ago and was normal. Dash recently saw a Neurologist at [facility] who diagnosed him with migraines and started him on amitriptyline 10mg qHS. Past Medical History Diagnosis Date ??? Uncomplicated asthma ??? ADHD (attention deficit hyperactivity disorder) ??? Migraines Past Surgical History Procedure Laterality Date ??? [facility]ia repair [facility]?? Fracture surgery 2005 arm fracture repair and hardware removal No Known Allergies Current Outpatient Prescriptions Medication ??? Methylphenidate HCl (CONCERTA PO) ??? ONDANSETRON PO ??? naproxen sodium 220 MG capsule ??? AMITRIPTYLINE HCL PO ??? omeprazole (PRILOSEC) 40 MG capsule ??? ondansetron (ZOFRAN ODT) 8 MG disintegrating tablet No current facility-administered medications for this visit. Family History Problem Relation Age of Onset ??? Celiac Disease Mother ??? Liver Disease No family hx of ??? Pancreatitis No family hx of ??? Gallbladder Disease No family hx of ??? Constipation No family hx of ??? Celiac Disease Maternal Aunt Social History: Lives at home with mother, mother's boyfriend and siblings, ages 13 and 18. Attends 9th grade. Pet dog. Review of Systems: As above. All other systems negative per complete ROS. Physical Exam: BP 125/89 mmHg Pulse 100 Ht 1.695 m (5' 6.73) Wt 46.3 kg (102 lb 1.2 oz) BMI16.12 kg/m2 GEN: WDWN male in no acute distress. Answers questions appropriately. Cooperative with exam. HEENT: NC/AT. Pupils equal and round. No scleral icterus. No rhinorrhea. MMMs w/o lesions. LYMPH: No cervical or supraclavicular LAD bilaterally. PULM: CTAB. Breath sounds symmetric. No wheezes or crackles. CV: RRR. Normal S1, S2. No murmurs. ABD: Nondistended. Normoactive bowel sounds. Soft, no tenderness to palpation. No HSM or other masses. EXT: No deformities, no clubbing. Cap refill <2sec. Radial pulse 2+. SKIN: No jaundice, bruising or petechiae on incomplete skin exam. Results Reviewed: Recent Results (from the past 672 hour(s)) CBC with platelets differential Collection Time: 04/22/15 4:11 PM Result Value Ref Range WBC 9.0 4.0 - 11.0 10e9/L RBC Count 4.94 3.7 - 5.3 10e12/L Hemoglobin 15.0 11.7 - 15.7 g/dL Hematocrit 43.0 35.0 - 47.0 % MCV 87 77 - 100 fl MCH 30.4 26.5 - 33.0 pg MCHC 34.9 31.5 - 36.5 g/dL RDW 12.8 10.0 - 15.0 % Platelet Count 343 150 - 450 10e9/L Diff Method Automated Method % Neutrophils 58.9 % % Lymphocytes 26.9 % % Monocytes 7.2 % % Eosinophils 5.9 % % Basophils 0.9 % % Immature Granulocytes 0.2 % Nucleated RBCs 0 0 /100 Absolute Neutrophil 5.3 1.3 - 7.0 10e9/L Absolute Lymphocytes 2.4 1.0 - 5.8 10e9/L Absolute Monoctyes 0.7 0.0 - 1.3 10e9/L Absolute Eosinophils 0.5 0.0 - 0.7 10e9/L Absolute Basophils 0.1 0.0 - 0.2 10e9/L Abs Immature Granulocytes 0.0 0 - 0.4 10e9/L Absolute Nucleated RBC 0.0 Erythrocyte sedimentation rate auto Collection Time: 04/22/15 4:11 PM Result Value Ref Range Sed Rate 2 0 - 15 mm/h CRP inflammation Collection Time: 04/22/15 4:11 PM Result Value Ref Range CRP Inflammation <2.9 0.0 - 8.0 mg/L Hepatic panel Collection Time: 04/22/15 4:11 PM Result Value Ref Range Bilirubin Direct 0.1 0.0 - 0.2 mg/dL Bilirubin Total 0.3 0.2 - 1.3 mg/dL Albumin 4.6 3.4 - 5.0 g/dL Protein Total 8.0 6.8 - 8.8 g/dL Alkaline Phosphatase 257 130 - 530 U/L ALT 26 0 - 50 U/L AST 21 0 - 35 U/L GGT Collection Time: 04/22/15 4:11 PM Result Value Ref Range GGT 16 0 - 44 U/L Amylase Collection Time: 04/22/15 4:11 PM Result Value Ref Range Amylase 46 30 - 110 U/L Lipase Collection Time: 04/22/15 4:11 PM Result Value Ref Range Lipase 92 0 - 194 U/L Tissue transglutaminase esteban IgA and IgG Collection Time: 04/22/15 4:11 PM Result Value Ref Range Tissue Transglutaminase Antibody IgA 0.3 <7 U/mL Tissue Transglutaminase Esteban IgG <7 U/mL <0.6 Negative New method in use 04/18/2015. Note new reference range. IgA Collection Time: 04/22/15 4:11 PM Result Value Ref Range IGA 197 70 - 380 mg/dL Assessment: Dash is a 14 year old male with 1. Chronic intermittent generalized abdominal pain 2. Nausea and vomiting 3. Nonbloody diarrhea 4. Migraines 5. ADHD Dash's presentation of severe abdominal pain associated with headache, photophobia, nausea and vomiting is most suggestive of migraines. Less typical are his reports of fevers and intermittent diarrhea. Normal labs, imaging and growth velocity is reassuring and makes inflammatory bowel disease unlikely. Differential includes cyclic vomiting syndrome, abdominal migraines, irritable bowel disease, reflux, celiac disease and periodic fever syndrome. Although no single diagnosis explains all of the symptoms, migraines fit the symptoms best. Plan: 1. Labs today - AST normalized, celiac screen negative. 2. Start omeprazole 40mg daily. Best given 30 minutes before breakfast. 3. Okay to use Zofran every 8 hours as needed. 4. Continue amitriptyline as instructed by neurology. 5. Follow up in 2 months. Please call in 2-3 weeks if no improvement in symptoms. Thank you for this consult, Caitlin Pham MD Pediatric Gastroenterology [facility] CC Marie Granger LING MANAGER documented in this encounter Nursing Notes Kindra Carlos, MARIA INES - 04/22/2015 3:00 PM CST Chief Complaint Patient presents with ??? Consult abdominal pain Initial BP 125/89 mmHg Pulse 100 Ht 5' 6.73 (169.5 cm) Wt 102 lb 1.2 oz (46.3 kg) BMI 16.12kg/m2 Estimated body mass index is 16.12 kg/(m^2) as calculated from the following: Height as of this encounter: 5' 6.73 (169.5 cm). Weight as of this encounter: 102 lb 1.2 oz (46.3 kg). BP completed using cuff size: small dilma Carlos LPN LING MANAGER documented in this encounter Plan of Treatment Not on filedocumented as of this encounter Procedures Procedure Name Priority Date/Time Associated Comments Diagnosis CBC WITH PLATELETS & Routine 04/22/2015 4:11 Abdominal pain, R esults for this DIFFERENTIAL PM DRILLING MANAGER generalized procedure are i n the results section. TISSUE TRANSGLUTAMINASE Routine 04/22/2015 4:11 Abdominal pain , Results for this ESTEBAN IGA AND IGG PM DRILLING MANAGER generalized procedure ar e in the results section. LIPASE Routine 04/22/2015 4:11 Abdominal pain, Results f or this PM DRILLING MANAGER generalized procedure are i n the results section. IGA Routine 04/22/2015 4:11 Abdominal pain, Results f or this PM DRILLING MANAGER generalized procedure are i n the results section. HEPATIC FUNCTION PANEL Routine 04/22/2015 4:11 Abdominal pain, Results for this PM DRILLING MANAGER generalized procedure are i n the results section. GGT Routine 04/22/2015 4:11 Abdominal pain, Results f or this PM DRILLING MANAGER generalized procedure are i n the results section. ERYTHROCYTE Routine 04/22/2015 4:11 Abdominal pain, Results f or this SEDIMENTATION RATE AUTO PM DRILLING MANAGER generalized proc edure are in the results section. CRP INFLAMMATION Routine 04/22/2015 4:11 Abdominal pain, Resul ts for this PM DRILLING MANAGER generalized procedure are i n the results section. AMYLASE Routine 04/22/2015 4:11 Abdominal pain, Results f or this PM DRILLING MANAGER generalized procedure are i n the results section. documented in this encounter Results IgA (04/22/2015 4:11 PM DRILLING MANAGER) P athologist Signature IGA 197 70 - 380 [facility] mg/dL [facility] Specimen Anatomical Collection Method Collection Time Receive d Time (Source) Location / / Volume Laterality Blood specimen 04/22/2015 4:11 PM 016 4:14 (specimen) DRILLING MANAGER PM DRILLING MANAGER Caitlin Pham MD LAB - BLOOD ORDERABLES Performing Organization Address City/State/ZIP Code Phon e Number [facility] [address] [place], [place] [id number] [place] [address] Tissue transglutaminase esteban IgA and IgG (04/22/2015 4:11 PM DRILLING MANAGER) Patholo gist Method Time Signature Tissue 0.3 <7 U/mL [facility] Transglutaminase [facility] Antibody IgA [facility] Comment: Negative New method in use 04/18/2015. Note new re ference range. Tissue Transglutaminase Esteban <0.6 <7 U/mL [facility] [place] IgG Negative [facility] New method in use 04/18/2015. Note new reference range. CAMPUS Specimen Anatomical Collection Method Collection Time Receive d Time (Source) Location / / Volume Laterality Blood specimen 04/22/2015 4:11 PM 016 4:14 (specimen) DRILLING MANAGER PM DRILLING MANAGER Caitlin Pham MD LAB - BLOOD ORDERABLES Performing Organization Address City/[facility]/ZIP Code Phon e Number [facility] [address] [place] [address] [facility] Lipase (04/22/2015 4:11 PM DRILLING MANAGER) P athologist Signature Lipase 92 0 - 194 U/L [facility] Specimen Anatomical Collection Method Collection Time Receive d Time (Source) Location / / Volume Laterality Blood specimen 04/22/2015 4:11 PM 016 4:14 (specimen) DRILLING MANAGER PM DRILLING MANAGER Caitlin Pham MD LAB - BLOOD ORDERABLES Performing Organization Address City/[facility]/ZIP Code Phon e Number [facility] [address] [place] [address] [facility] Amylase (04/22/2015 4:11 PM DRILLING MANAGER) P athologist Signature Amylase 46 30 - 110 [facility] U/L [facility] Specimen Anatomical Collection Method Collection Time Receive d Time (Source) Location / / Volume Laterality Blood specimen 04/22/2015 4:11 PM 016 4:14 (specimen) DRILLING MANAGER PM DRILLING MANAGER Caitlin Pham MD LAB - BLOOD ORDERABLES Performing Organization Address City/State/ZIP Code Phon e Number [address] [address] [facility] GGT (04/22/2015 4:11 PM DRILLING MANAGER) P athologist Signature GGT 16 0 - 44 U/L [facility] Specimen Anatomical Collection Method Collection Time Receive d Time (Source) Location / / Volume Laterality Blood specimen 04/22/2015 4:11 PM 016 4:14 (specimen) DRILLING MANAGER PM DRILLING MANAGER Caitlin Pham MD LAB - BLOOD ORDERABLES Performing Organization Address City/State/ZIP Code Phon e Number [address] [address] [facility] Hepatic panel (04/22/2015 4:11 PM DRILLING MANAGER) athologist Signature Bilirubin Direct 0.1 0.0 - 0.2 [facility] mg/dL [facility] Bilirubin Total 0.3 0.2 - 1.3 [facility] mg/dL [facility] Albumin 4.6 3.4 - 5.0 [facility] g/dL [facility] Protein Total 8.0 6.8 - 8.8 [facility] g/dL [facility] Alkaline 257 130 - 530 [facility] Phosphatase U/L [facility] ALT 26 0 - 50 U/L [facility] AST 21 0 - 35 U/L [facility] Specimen Anatomical Collection Method Collection Time Receive d Time (Source) Location / / Volume Laterality Blood specimen 04/22/2015 4:11 PM 016 4:14 (specimen) DRILLING MANAGER PM DRILLING MANAGER Caitlin Pham MD LAB - BLOOD ORDERABLES Performing Organization Address City/State/ZIP Code Phon e Number [address] [address] [facility] CRP inflammation (04/22/2015 4:11 PM DRILLING MANAGER) Analysis Performed At Patho logist Time Signature CRP Inflammation <2.9 0.0 - 8.0 [facility] mg/L [facility] Specimen Anatomical Collection Method Collection Time Receive d Time (Source) Location / / Volume Laterality Blood specimen 04/22/2015 4:11 PM 016 4:14 (specimen) DRILLING MANAGER PM DRILLING MANAGER Caitlin Pham MD LAB - BLOOD ORDERABLES Performing Organization Address City/State/ZIP Code Phon e Number [address] [address] [facility] Erythrocyte sedimentation rate auto (04/22/2015 4:11 PM DRILLING MANAGER) P athologist Signature Sed Rate 2 0 - 15 mm/h [facility] Specimen Anatomical Collection Method Collection Time Receive d Time (Source) Location / / Volume Laterality Blood specimen 04/22/2015 4:11 PM 016 4:14 (specimen) DRILLING MANAGER PM DRILLING MANAGER Caitlin Pham MD LAB - BLOOD ORDERABLES Performing Organization Address City/[facility]/ZIP Code Phon e Number [place] [id number] [facility] CBC with platelets differential (04/22/2015 4:11 PM DRILLING MANAGER) Patholo gist Method Time Signature WBC 9.0 4.0 - [facility] 11.0 [facility] 10e9/L [facility] RBC Count 4.94 3.7 - 5.3 [facility] 10e12/L [facility] Hemoglobin 15.0 11.7 - [facility] 15.7 g/dL [facility] Hematocrit 43.0 35.0 - [facility] 47.0 % [facility] MCV 87 77 - 100 [facility] MCH 30.4 26.5 - [facility] 33.0 pg [facility] MCHC 34.9 31.5 - [facility] 36.5 g/dL [facility] RDW 12.8 10.0 - [facility] 15.0 % [facility] Platelet Count 343 150 - 450 [facility] 10e9/L [facility] Diff Method Automated [facility] Method [facility] % Neutrophils 58.9 % [facility] % Lymphocytes 26.9 % [facility] % Monocytes 7.2 % [facility] % Eosinophils 5.9 % [facility] % Basophils 0.9 % [facility] % Immature 0.2 % [facility] Granulocytes [facility] Nucleated RBCs 0 0 /100 [facility] Absolute 5.3 1.3 - 7.0 [facility] Neutrophil 10e9/L [facility] Absolute 2.4 1.0 - 5.8 [facility] Lymphocytes 10e9/L [facility] Absolute 0.7 0.0 - 1.3 [facility] Monocytes 10e9/L [facility] Absolute 0.5 0.0 - 0.7 [facility] Eosinophils 10e9/L [facility] Absolute 0.1 0.0 - 0.2 [facility] Basophils 10e9/L [facility] Abs Immature 0.0 0 - 0.4 [facility] Granulocytes 10e9/L [facility] Absolute 0.0 [facility] Nucleated RBC [facility] Specimen Anatomical Collection Method Collection Time Receive d Time (Source) Location / / Volume Laterality Blood specimen 04/22/2015 4:11 PM 016 4:14 (specimen) DRILLING MANAGER PM DRILLING MANAGER Caitlin Pham MD LAB - BLOOD ORDERABLES Performing Organization Address City/State/ZIP Code Phon e Number [facility] [address] [place] [address] [facility] documented in this encounter Visit Diagnoses Diagnosis Abdominal pain, generalized - Primary Diarrhea Intractable vomiting with nausea, vomiti ng of unspecified type Migraine without aura and without status migrainosus, not intractable Migraine without aura, without mention o f intractable migraine without mention of status migrainosus documented in this encounter Care Teams Flexo Operator Relationship Specialty Start Date End Date Marie Granger MD PCP - General 03/06/15 [place] [address] [address] [address] Julio César, Referring Physician Surgery 03/06/15 MD Vero Coates Jessica MD Pediatric Gastroenterology 03/06/[address] [facility] [id number] documented as of this encounter
--- OUTSIDE RECORDS SUMMARY | 2021-11-11 12:57 | XMS_ITS | Encounter Summary ---
:2000 Author Organization [facility] Address [address] [place] [id number] Care Team Providers Name Role Phone Marie Granger MD Primary Care Provider Aminata Angela MD Unavailable Unavailable Caitlin Pham MD Unavailable [phone] Reason for Referral Consultation (Routine) - Closed Specialty Diagnoses / Procedures Referred By Contact Refer red To Contact Diagnoses Acute left-sided low back pain with left-sided sciatica Stone Stahl PA-C [address] [facility] [place] [id number] Referral ID Status Reason Start Date Expiration Date Visits Requ ested Visits Authorized [id number] Closed 07/17/2020 07/17/2021 1 1 iagnostic Imaging XR (Routine) - Closed Specialty Diagnoses / Procedures Referred By Contact Refer red To Contact Diagnoses Acute left-sided low back pain with left-sided sciatica Stone Stahl, Procedures XR Lumbar Spine 2/3 Views GRISELDA [address] [facility] [place] [id number] Referral ID Status Reason Start Date Expiration Date Visits Requ ested Visits Authorized [id number] Closed 07/17/2020 07/17/2021 1 1 Reason for Visit Reason Comments 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 this morning bend down to pi ck a heavy box and started having pain in the lower back at work Encounter Details Date Type Department Care Team Description 07/17/2020 Office Visit [facility] Stone Stahl Liang le ft-sided low Urgent Care Aleksandr Minaya PA-C back pain with [address] [place] [address] left-sided sciatica [place], [place] GÉNESIS MONCADA (Primary Dx) [id number] [place] [id number] Social History Tobacco Use Types Packs/Day Years [...] Sign Reading Time Taken Comments Blood Pressure 114/71 07/17/2020 11:16 AM CDT Pulse 71 07/17/2020 11:16 AM CDT Temperature 37 ??C (98.6 ??F) 07/17/2020 11:16 AM CDT Respiratory Rate 16 07/17/2020 11:16 AM CDT Oxygen Saturation 99% 07/17/2020 11:16 AM CDT Inhaled Oxygen Concentration - - Weight 57.2 kg (126 lb) 07/17/2020 11:16 AM CDT Height 177.8 cm (5' 10) 07/17/2020 11:16 AM CDT Body Mass Index 18.08 07/17/2020 11:16 AM CDT documented in this encounter Patient Instructions Patient InstructionsStone Stahl PA-C - 07/17/2020 10:50 AM CDT Images from the original note were not included. Patient Education Back Care Tips?? Caring for your back These are things you can do to prevent a recurrence of acute back pain and to reduce symptoms from chronic back pain: ?? Stay at a healthy weight. If you are overweight, losing weight will help most types of back pain. ?? Exercise is an important part of recovery from most types of back pain. The muscles behind and infront of the spine support the back. This means strengthening both the back muscles and the abdominal muscles will provide better support for your spine.? Swimming and brisk walking are good overall exercises to improve your fitness level. ?? Practice safe lifting methods (see below). ?? Practice good posture when sitting, standing, and walking. Don't sit for a long time. This puts more stress on the lower back than standing or walking. ?? Wear quality shoes with good arch support. Foot and ankle alignment can affect back symptoms. Don't wear high heels. ?? Therapeutic massage can help relax the back muscles without stretching them. ?? During the first 24 to 72 hours after an acute injury or flare-up of chronic back pain, put an ice pack on the painful area for 20 minutes and then remove it for 20 minutes. Do thisover a period of 60 to 90 minutes, or several times a day. As a safety precaution, don't use a heating pad at bedtime.Sleeping on a heating pad can lead to skin mooney or tissue damage. ?? You can alternate using ice and heat. Medicines Talk with your healthcare provider before using medicines, especially if you have other health problems or are taking other medicines. ?? You may use kebf-ycz-ggpbebj medicines, such as acetaminophen, ibuprofen, or naprosyn to control pain, unless your healthcare provider prescribed other pain medicine. Talk with your healthcare provider before taking any medicines if you have a chronic condition such as diabetes, liver or kidney disease, stomach ulcers, or digestive bleeding, or are taking blood thinners. ?? Be careful if you are given prescription pain medicines, opioids, or medicine for muscle spasm. They can cause drowsiness, and affect your coordination, reflexes, and judgment. Don't drive or operate heavy machinery while taking these types of medicines. Take prescription pain medicine only as prescribed by your healthcare provider. Lumbar stretch This simple stretch will help relax muscle spasm and keep your back more limber. If exercise makes your back pain worse, don???t do it. ?? Lie on your back with your knees bent and both feet on the ground. ?? Slowly raise your left knee to your chest as you flatten your lower back against the floor. Hold for 5 seconds. ?? Relax and repeat the exercise with your right knee. ?? Do 10 of these exercises for each leg. Safe lifting method ?? Don???t bend over at the waist to lift an object off the floor.?? Instead, bend your knees and hips in a squat.? Keep your back and head upright ?? Hold the object close to your body, directly in front of you. ?? Straighten your legs to lift the object.? Lower the object to the floor in the reverse fashion. ?? If you must slide something across the floor, push it. Posture tips Sitting Sit in chairs with straight backs or low-back support. Keep your knees lower than your hips, with your feet flat on the floor. When driving, sit up straight. Adjust the seat forward so you are not leaning toward the steering wheel.?? A small pillow or rolled towel behind your lower back may help if you are driving long distances.?? Standing When standing for long periods, shift most of your weight to one leg at a time. Switch legs every few minutes.?? Sleeping The best way to sleep is on your side with your knees bent. Put a low pillow under your head to support your neck in a neutral spine position. Don't use thick pillows that bend your neck to one side. Put a pillow between your legs to further relax your lower back. If you sleep on your back, put pillows under your knees to support your legs in a slightly flexed position. Use a firm mattress. If your mattress sags, replace it, or use a 1/2-inch plywood board under the mattress to add support. Follow-up care Follow up with your??healthcare provider, or as advised. If X-rays, a CT scan or an MRI scan were taken, they may be reviewed by a radiologist. You will be told of any new findings that may affect your care. Call 911 Call 911 if any of the following occur: ?? Trouble breathing ?? Confusion ?? Very drowsy ?? Fainting or loss of consciousness ?? Rapid or very slow heart rate ?? Loss of?? bowel or bladder control When to seek medical advice Call your healthcare provider right away??if any of the following occur: ?? Pain becomes worse or spreads to your arms or legs ?? Weakness or numbness in one or both arms or legs ?? Numbness in the groin area [employer] last reviewed this educational content on 02/03/2019 ?? [id number] [employer]. All rights reserved. This information is not intended as a substitute for professional medical care. Always follow your healthcare professional's instructions. Patient Education * Sciatica Sciatica (Lumbar Radiculopathy) causes a pain that spreads from the lower back down into the buttock, hip and leg. Sometimes leg pain can occur without any back pain. Sciatica is due to irritation orpressure on a spinal nerve as it comes out of the spinal canal. This is most often due to pressure on the nerve from a nearby spinal disk (the cartilage cushion between each spinal bone). Other causes include spinal stenosis (narrowing of the spinal canal) and spasm of the piriformis muscle (a muscle in the buttocks that the sciatic nerve passes through). Sciatica may begin after a sudden twisting/bending force (such as in a car accident), or sometimes after a simple awkward movement. In either case, muscle spasm is commonly present and can add to the pain. The diagnosis of sciatica is made from the symptoms and physical exam. Unless you had a physical injury (such as a car accident or fall), X-rays are usually not ordered for the initial evaluation of sciatica because the nerves and disks cannot be seen on an X-ray. Most sciatica (80-90%) gets better with time. What can I do about my low back pain? There are three main things you can do to ease low back pain and help it go away. ?? Stay active! Use positions, movements and exercises. Too much rest can make your symptoms worse. ?? Use heat or cold packs. ?? Take medicine as directed. Using positions, movements and exercises Research tells us that moving your joints and muscles can help you recover from back pain. Such activity should be simple and gentle. Use walking to help relieve your discomfort. Try taking a short walk every 3 to 4 hours during the day. Walk for a few minutes inside your home or take longer walks outside, on a treadmill or at a mall. Slowly increase the amount of time you walk. Expect discomfort when you begin, but it should lessenas your back starts to recover. Finding a position that is comfortable When your back pain is new, you may find that certain positions will ease your pain. Gently try eachof the following positions until you find one that eases your pain. Once you find a position of comfort, use it as often as you like while you recover. Return to your daily routine as soon as possible. ?? Lie on your back with your legs bent. You can do this by placing a pillow under your knees or lieon the floor and rest your lower legs on the seat of a chair. ?? Lie on your side with your knees bent and place a pillow between your knees. ?? Lie on your stomach over pillows. Using heat or cold packs Try cold packs or gentle heat to ease your pain. Use whichever gives you the most relief. Apply the cold pack or heat for 15 minutes at a time, as often as needed. Taking medicine If taking rqwf-htr-iszadnm medicine: ?? Take ibuprofen (Advil, Motrin) 600 mg. three times a day as needed for pain. OR ?? Take Aleve (naproxen sodium) 220 to 440 mg. two times a day as needed for pain. If your doctor prescribed medicine, follow the instructions. Stop taking the medicine as soon as youcan. When should I call my doctor? Your back pain should improve over the first couple of weeks. As it improves, you should be able to return to your normal activities. But call your doctor if: ?? You have a sudden change in your ability to control?your bladder or bowels. ?? You begin to feel tingling in your groin or legs. ?? The pain spreads down your leg and into your foot. ?? Your toes, feet or leg muscles begin to feel weak. ?? You feel generally unwell or sick. ?? Your pain gets worse. For informational purposes only. Not to replace the advice of your health care provider. Copyright ?? 2018 [facility]. All rights reserved. documented in this encounter Progress Notes Stone Stahl PA-C - 07/17/2020 10:50 AM CDT Images from the original note were not included. EMPLOYER: [employer] TIME OF INJURY: 430 am 07/17/20 BETTINA: Picking up 150 pound box, left side pain upon standing Has had issues in this spot in the past. No back pain this morning until lifting, shot to 8/10. Currently 5/10. SUBJECTIVE: Chief Complaint Patient presents with ??? Urgent Care ??? Back Injury this morning bend down to pick a heavy box and started having pain in the lower back at work Dash Collier is a 20 year old male presents with a chief complaint of left back pain. has had decreased ROM. Pain exacerbated by weight-bearing, movement, twisting and sitting. Relieved by rest. He treated it initially with heating pad. This is the first time this type of injury has occurred to this patient. Past Medical History: Diagnosis Date ??? ADHD (attention deficit hyperactivity disorder) ??? Migraines ??? Uncomplicated asthma Current Outpatient Medications Medication Sig Dispense Refill ??? AMITRIPTYLINE HCL PO Take 25 mg by mouth nightly as needed ??? Methylphenidate HCl (CONCERTA PO) Take 54 mg by mouth daily ??? naproxen sodium 220 MG capsule Take 220 mg by mouth daily ??? omeprazole (PRILOSEC) 40 MG capsule Take 1 capsule (40 mg) by mouth daily Take 30 minutes beforea meal. 30 capsule 3 ??? ondansetron (ZOFRAN ODT) 8 MG disintegrating tablet Take 1 tablet (8 mg) by mouth every 8 hours as needed for nausea 20 tablet 1 ??? ONDANSETRON PO Take 4 mg by mouth every 6 hours as needed Social History Tobacco Use ??? Smoking status: Never Smoker ??? Smokeless tobacco: Never Used Substance Use Topics ??? Alcohol use: Not on file ROS: 10 point ROS negative except as listed above EXAM: BP 114/71 Pulse 71 Temp 98.6 ??F (37 ??C) Resp 16 Ht 1.778 m (5' 10) Wt 57.2 kg (126 lb) SpO2 99% BMI 18.08 kg/m?? Gen: healthy,alert,no distress BACK: no midline tenderness, tender left sided paraspinals CHEST: clear to auscultation CV: regular rate and rhythm MS: no gross deformities noted, no evidence of inflammation in joints, FROM in all extremities. SKIN: no suspicious lesions or rashes NEURO: Normal strength and tone, sensory exam grossly normal, mentation intact and speech normal X-ray image initially interpreted in clinic by me in order to rule out fracture/dislocation. No evidence appreciated. ASSESSMENT: (M54.42) Acute left-sided low back pain with left-sided sciatica (primary encounter diagnosis) Plan: XR Lumbar Spine 2/3 Views, ibuprofen (ADVIL/MOTRIN) 800 MG tablet, cyclobenzaprine (FLEXERIL) 10 MG tablet, Orthopedic [facility] Spine [employer] Referral Red flags and emergent follow up discussed, and understood by patient Follow up with PCP if symptoms worsen or fail to improve Patient Instructions Patient Education Back Care Tips?? Caring for your back These are things you can do to prevent a recurrence of acute back pain and to reduce symptoms from chronic back pain: ?? Stay at a healthy weight. If you are overweight, losing weight will help most types of back pain. ?? Exercise is an important part of recovery from most types of back pain. The muscles behind and infront of the spine support the back. This means strengthening both the back muscles and the abdominal muscles will provide better support for your spine.? Swimming and brisk walking are good overall exercises to improve your fitness level. ?? Practice safe lifting methods (see below). ?? Practice good posture when sitting, standing, and walking. Don't sit for a long time. This puts more stress on the lower back than standing or walking. ?? Wear quality shoes with good arch support. Foot and ankle alignment can affect back symptoms. Don't wear high heels. ?? Therapeutic massage can help relax the back muscles without stretching them. ?? During the first 24 to 72 hours after an acute injury or flare-up of chronic back pain, put an ice pack on the painful area for 20 minutes and then remove it for 20 minutes. Do thisover a period of 60 to 90 minutes, or several times a day. As a safety precaution, don't use a heating pad at bedtime.Sleeping on a heating pad can lead to skin mooney or tissue damage. ?? You can alternate using ice and heat. Medicines Talk with your healthcare provider before using medicines, especially if you have other health problems or are taking other medicines. ?? You may use wzxd-seu-rrmeqxj medicines, such as acetaminophen, ibuprofen, or naprosyn to control pain, unless your healthcare provider prescribed other pain medicine. Talk with your healthcare provider before taking any medicines if you have a chronic condition such as diabetes, liver or kidney disease, stomach ulcers, or digestive bleeding, or are taking blood thinners. ?? Be careful if you are given prescription pain medicines, opioids, or medicine for muscle spasm. They can cause drowsiness, and affect your coordination, reflexes, and judgment. Don't drive or operate heavy machinery while taking these types of medicines. Take prescription pain medicine only as prescribed by your healthcare provider. Lumbar stretch This simple stretch will help relax muscle spasm and keep your back more limber. If exercise makes your back pain worse, don???t do it. ?? Lie on your back with your knees bent and both feet on the ground. ?? Slowly raise your left knee to your chest as you flatten your lower back against the floor. Hold for 5 seconds. ?? Relax and repeat the exercise with your right knee. ?? Do 10 of these exercises for each leg. Safe lifting method ?? Don???t bend over at the waist to lift an object off the floor.?? Instead, bend your knees and hips in a squat.? Keep your back and head upright ?? Hold the object close to your body, directly in front of you. ?? Straighten your legs to lift the object.? Lower the object to the floor in the reverse fashion. ?? If you must slide something across the floor, push it. Posture tips Sitting Sit in chairs with straight backs or low-back support. Keep your knees lower than your hips, with your feet flat on the floor. When driving, sit up straight. Adjust the seat forward so you are not leaning toward the steering wheel.?? A small pillow or rolled towel behind your lower back may help if you are driving long distances.?? Standing When standing for long periods, shift most of your weight to one leg at a time. Switch legs every few minutes.?? Sleeping The best way to sleep is on your side with your knees bent. Put a low pillow under your head to support your neck in a neutral spine position. Don't use thick pillows that bend your neck to one side. Put a pillow between your legs to further relax your lower back. If you sleep on your back, put pillows under your knees to support your legs in a slightly flexed position. Use a firm mattress. If your mattress sags, replace it, or use a 1/2-inch plywood board under the mattress to add support. Follow-up care Follow up with your??healthcare provider, or as advised. If X-rays, a CT scan or an MRI scan were taken, they may be reviewed by a radiologist. You will be told of any new findings that may affect your care. Call 911 Call 911 if any of the following occur: ?? Trouble breathing ?? Confusion ?? Very drowsy ?? Fainting or loss of consciousness ?? Rapid or very slow heart rate ?? Loss of?? bowel or bladder control When to seek medical advice Call your healthcare provider right away??if any of the following occur: ?? Pain becomes worse or spreads to your arms or legs ?? Weakness or numbness in one or both arms or legs ?? Numbness in the groin area [employer] last reviewed this educational content on 02/03/2019 ?? [id number] [employer]. All rights reserved. This information is not intended as a substitute for professional medical care. Always follow your healthcare professional's instructions. Patient Education * Sciatica Sciatica (Lumbar Radiculopathy) causes a pain that spreads from the lower back down into the buttock, hip and leg. Sometimes leg pain can occur without any back pain. Sciatica is due to irritation orpressure on a spinal nerve as it comes out of the spinal canal. This is most often due to pressure on the nerve from a nearby spinal disk (the cartilage cushion between each spinal bone). Other causes include spinal stenosis (narrowing of the spinal canal) and spasm of the piriformis muscle (a muscle in the buttocks that the sciatic nerve passes through). Sciatica may begin after a sudden twisting/bending force (such as in a car accident), or sometimes after a simple awkward movement. In either case, muscle spasm is commonly present and can add to the pain. The diagnosis of sciatica is made from the symptoms and physical exam. Unless you had a physical injury (such as a car accident or fall), X-rays are usually not ordered for the initial evaluation of sciatica because the nerves and disks cannot be seen on an X-ray. Most sciatica (80-90%) gets better with time. What can I do about my low back pain? There are three main things you can do to ease low back pain and help it go away. ?? Stay active! Use positions, movements and exercises. Too much rest can make your symptoms worse. ?? Use heat or cold packs. ?? Take medicine as directed. Using positions, movements and exercises Research tells us that moving your joints and muscles can help you recover from back pain. Such activity should be simple and gentle. Use walking to help relieve your discomfort. Try taking a short walk every 3 to 4 hours during the day. Walk for a few minutes inside your home or take longer walks outside, on a treadmill or at a mall. Slowly increase the amount of time you walk. Expect discomfort when you begin, but it should lessenas your back starts to recover. Finding a position that is comfortable When your back pain is new, you may find that certain positions will ease your pain. Gently try eachof the following positions until you find one that eases your pain. Once you find a position of comfort, use it as often as you like while you recover. Return to your daily routine as soon as possible. ?? Lie on your back with your legs bent. You can do this by placing a pillow under your knees or lieon the floor and rest your lower legs on the seat of a chair. ?? Lie on your side with your knees bent and place a pillow between your knees. ?? Lie on your stomach over pillows. Using heat or cold packs Try cold packs or gentle heat to ease your pain. Use whichever gives you the most relief. Apply the cold pack or heat for 15 minutes at a time, as often as needed. Taking medicine If taking uicw-jrz-pbacxxg medicine: ?? Take ibuprofen (Advil, Motrin) 600 mg. three times a day as needed for pain. OR ?? Take Aleve (naproxen sodium) 220 to 440 mg. two times a day as needed for pain. If your doctor prescribed medicine, follow the instructions. Stop taking the medicine as soon as youcan. When should I call my doctor? Your back pain should improve over the first couple of weeks. As it improves, you should be able to return to your normal activities. But call your doctor if: ?? You have a sudden change in your ability to control?your bladder or bowels. ?? You begin to feel tingling in your groin or legs. ?? The pain spreads down your leg and into your foot. ?? Your toes, feet or leg muscles begin to feel weak. ?? You feel generally unwell or sick. ?? Your pain gets worse. For informational purposes only. Not to replace the advice of your health care provider. Copyright ?? 2018 [facility]. All rights reserved. documented in this encounter Plan of Treatment Scheduled Referrals Name Type Priority Associated Diagnoses Order S chedule Orthopedic & Spine Referral Routine Acute left-sided low E xpected: 07/17/2020, [employer] Referral back pain with Expires : 07/17/2021 left-sided sciatica documented as of this encounter Results XR Lumbar Spine 2/3 Views (07/17/2020 11:49 AM CDT) Anatomical Region Laterality Modality Spine, T-spine, L-spine, Abdomen/Pelvis Computed Radiography Specimen (Source) Anatomical Location Collection Method / Collectio n Time Received Time / Laterality Volume Narrative 07/17/2020 12:18 PM CDT XR LUMBAR SPINE 2-3 VIEWS 07/17/2020 11:49 AM COMPARISON: None HISTORY: Acute left-sided low back pain with left-sided sciatica FINDINGS: Normal vertebral body heights and alignment. Normal interbody spaces and facets. Normal visu alized bony pelvis. TOMMY MILLS MD Procedure Note Tommy Mills MD - 07/17/2020Format ting of this note might be different from the original. XR LUMBAR SPINE 2-3 VIEWS 07/17/2020 11:4 9 AM COMPARISON: None HISTORY: Acute left-sided low back pain with left-sided sciatica FINDINGS: Normal vertebral body heights and alignment. Normal interbody spaces and facets. Normal visu alized bony pelvis. TOMMY MILLS MD Stone Stahl PA-C [facility] O RDERABLES documented in this encounter Visit Diagnoses Diagnosis Acute left-sided low back pain with left -sided sciatica - Primary Acute left-sided low back pain with left -sided sciatica documented in this encounter Care Teams Business Applications Manager Relationship Specialty Start Date End Date Marie Granger MD PCP - General 03/06/15 [facility]MERLY [facility] [address] [place] [address] Judy Angela Physician Surgery 03/06/15 MD Vero Coates Jessica MD Pediatric Gastroenterology 03/06/15 MD Shira [address] [place] [address] documented as of this encounter
--- OUTSIDE RECORDS SUMMARY | 2021-11-11 12:57 | XMS_ITS | Encounter Summary ---
:2000 Author Organization [place] Address [address] [place] [address] Care Team Providers Name Role Phone Marie Granger MD Primary Care Provider Aminata Angela MD Unavailable Unavailable Caitlin Pham MD Unavailable [phone] Reason for Visit Diagnostic Imaging XR (Routine) - Closed Specialty Diagnoses / Procedures Referred By Contact Refer red To Contact Diagnoses Acute left-sided low back pain with left-sided sciatica Stone Stahl, Procedures XR Lumbar Spine 2/3 Views PA-C [address] [facility] [place] [address] Referral ID Status Reason Start Date Expiration Date Visits Requ ested Visits Authorized [id number] Closed 07/17/2020 07/17/2021 1 1 Encounter Details Date Type Department Care Team Description 07/17/2020 Ancillary [facility] Stone Stahl le ft-sided low Procedure [facility] Riccardo Minaya, P A-C back pain with [place] [address] left-sided sciatica [address] [place] [id number] Social History Tobacco Use Types Packs/Day [...] Name Priority Date/Time Associated Diagnosis Comme nts XR LUMBAR SPINE 2/3 Routine 07/17/2020 11:49 AM Acute left-jaxon ed low Results for this VIEWS CDT back pain with procedure are in left-sided sciatica the resu lts section. documented in this encounter Results XR Lumbar Spine 2/3 [...] and facets. Normal visu alized bony pelvis. JUN MILLS MD Procedure Note Jun Mills MD - 07/17/2020Format ting of this note might be different from the original. XR LUMBAR SPINE 2-3 VIEWS 07/17/2020 11:4 9 AM COMPARISON: None HISTORY: Acute left-sided low back pain with left-sided sciatica FINDINGS: Normal vertebral body heights and alignment. Normal interbody spaces and facets. Normal visu alized bony pelvis. JUN MILLS MD Stone Stahl PA-C IMG DIAGNOSTIC IMAGING O MARCELLERABLES documented in this encounter Visit Diagnoses Diagnosis Acute left-sided low back pain with left -sided sciatica documented in this encounter Care Teams Hairspring Truing Inspector Relationship Specialty Start Date End Date Marie Granger MD PCP - General 03/06/15 [facility]LY [facility] [place] [address] Julio César Referring Physician Surgery 03/06/15 MD Vero Coates Jessica MD Pediatric Gastroenterology 03/06/15 MD Shira [facility] [address] documented as of this encounter
== END 2021-10-16 15:46 | disposition home or self-care (01) ==
PROVIDERS: PCP Family Medicine; Visit Provider Family Medicine
DX: R55 Syncope and collapse (principal); R51.9 Headache, unspecified; R94.31 Abnormal electrocardiogram [ECG] [EKG]; F32.A Depression, unspecified
CPT/HCPCS: 80053; 84443

== ENCOUNTER 2021-10-24 08:33 | Outpatient (CLI) | payer MEDICAID, SELFPAY ==
--- NOTE | 2021-10-24 09:15 | CRLHL7_ITS ---
For Patients: As a result of the Century Cures Act, medical imaging exams and procedure reports are released immediately into your electronic medical record. You may view this report before your referring provider. If you have questions, please contact your health care provider. INDICATION: Syncope and collapse. TECHNIQUE: Brain MRI without contrast. The following sequences were obtained: Sagittal T1 weighted sequence. DWI and ADC mapping sequences. Axial FLAIR and SOCRATES T2 weighted sequences. COMPARISON: Head CT from 10/10/2021. FINDINGS: No evidence of acute ischemia. No evidence of acute or chronic intracranial blood products. No pathologic intracranial signal abnormality. No mass effect or herniation. No hydrocephalus or extra-axial collections. The pituitary gland, parasellar structures and optic chiasm are normal. Posterior fossa is normal. All the major intracranial vascular structures demonstrate normal flow-related signal. The orbital contents are normal. No calvarial or skull base marrow replacing process. No obstructive sinus disease. No extracranial soft tissue findings. IMPRESSION: 1. No significant intracranial abnormality. Dictated by Herber Pearce MD @ 10/24/2021 10:22:57 AM (Electronically Signed)
== END 2021-10-24 08:34 | disposition home or self-care (01) ==
LOC: MRI 08:34
PROVIDERS: PCP Family Medicine; Visit Provider Family Medicine
DX: R55 Syncope and collapse (principal); R51.9 Headache, unspecified; R63.4 Abnormal weight loss
CPT/HCPCS: 70551; 93306

== ENCOUNTER 2021-10-27 13:23 | Outpatient (CLI) | payer MEDICAID, SELFPAY ==
[2021-10-27 21:26] LABS: Amphetamine Screen Urine Negative (Negative); Barbiturate Screen Urine Negative (Negative); Benzodiazepines Screen Urine Negative (Negative); Cannabinoid Screen Urine Negative (Negative); Cocaine Screen Urine Negative (Negative); Methadone Screen Urine Negative (Negative); Methamphetamines Screen Urine Negative (Negative); Opiate Screen Urine Negative (Negative); Oxycodone Screen Urine Negative (Negative); Phencyclidine Screen Urine Negative (Negative); Tricyclic Antidepressant Urine Negative (Negative)
== END 2021-10-27 13:24 | disposition home or self-care (01) ==
PROVIDERS: PCP Family Medicine; Visit Provider Physician Assistant Medical
DX: R55 Syncope and collapse (principal); R51.9 Headache, unspecified; R06.89 Other abnormalities of breathing; R63.4 Abnormal weight loss
CPT/HCPCS: 80306; 83516; 83655; 84443

== ENCOUNTER 2021-12-06 15:09 | Emergency (ER) | payer MEDICAID, SELFPAY ==
[2021-12-06] VITALS (14 sets, daily range): BP systolic 90–103; BP diastolic 64–73; PULSE 63–81; RESP 18; TEMP 37.4; O2SAT 96–98; BMI 17.0
--- NOTE | 2021-12-06 15:31 | ED_ITS ---
HPI - General Adult General Time Seen by Provider: 15:31 Date Seen: 12/06/21 Chief complaint: Chest Pain Stated complaint: Micro Valve Prolapse Chest Pain Tachycardia Time Seen by Provider: 12/06/21 15:19 Source: patient, RN notes reviewed and old records reviewed Mode of arrival: ambulatory Limitations: no limitations History of Present Illness HPI narrative: Patient is a 21-year-old male accompanied by his mom in the ER with episodes of fast heart rate. They have been happening more frequently. He is getting chest discomfort when they happen. They have not lasted more than a couple minutes. He has not noted any fevers chills, is not hot outside but his temp on arrival was 99.3. He has had no cough or cold symptoms. He does have mitral valve prolapse and a trace mitral regurgitation, history of recurrent syncope. He recently saw Dr. Last in Cardiology on November 21, that note has been reviewed. He has had a Holter monitor as well as an echo obviously. His Apple watch has not shown any rhythm disturbances during the spells. His Holter had 2 episodes documenting sinus tachycardia highest rate of 141 minutes, 1 lasted just under 8 minutes. The print binding and finishing worker did wonder if this could be SVT. Does have concerns that the patient might be even plagued with possible V tach that has not been captured given the syncope. He requested that he come in given the current symptoms. His sister around 130 today placed her hand on his chest and stated that she could feel it beating fast, some pain away. Mom related this history to me. Wale can feel his heart beating right now but it not necessarily fast. On the monitor when he tells me this he is in a sinus rhythm with some sinus arrhythmia, heart rate 70s to 80s. Chest pain accompanies these fast spells of tachycardia. Not short of breath. Related Data Previous Rx's Medication Instructions Recorded albuterol sulfate 90 mcg/actuation 2 puff inhalation QID PRN 10/16/21 aerosol inhaler bronchospasm #8.5 grams escitalopram oxalate 10 mg tablet 10 mg PO DAILY #30 tabs 10/16/21 Allergies Allergy/AdvReac Type Severity Reaction Status Date / Time ibuprofen Allergy Intermediate Hives Verified 11/21/21 12:52 cyclobenzaprine Allergy Unknown Verified 11/21/21 12:52 Review of Systems Status of ROS: Reports: 10 or more systems reviewed and unremarkable except as noted in History and below [facility] Medical History (Updated 12/06/21 @ 17:32 by Marie Mcbride MD) Abnormal EKG Asthma Asthma Headache History of epistaxis History of migraine Migraine Surgical History (Updated 10/15/21 @ 08:42 by Dereck López) History of elbow surgery Status post hernia repair (2004) Social History Smoking Status: Never smoker Do you use any of these nicotine containing products: E-Cigarettes and Vaping Products Second hand tobacco smoke exposure: No How often do you have a drink containing alcohol: monthly or less How many standard drinks containing alcohol do you have on a typical day: 1 or 2 How often do you have six or more drinks on one occasion: Less than monthly AUDIT-C Alcohol total score: 2 Non-prescribed substance use: denies use Little interest or pleasure in doing things: not at all Feeling down, depressed, or hopeless: not at all service: No Exam Const: Vital Signs, click to edit/add: Vital Signs - 24 hr 12/06/21 15:18 12/06/21 15:57 12/06/21 16:00 Temperature 99.3 F Pulse Rate 76 75 Pulse Rate [Apical ] 71 Respiratory Rate 18 Blood Pressure Blood Pressure [Le ft Upper Arm] 103/73 Pulse Oximetry 96 96 97 Oxygen Delivery Me thod Room Air 12/06/21 16:13 12/06/21 16:15 12/06/21 16:30 Temperature Pulse Rate 76 81 73 Pulse Rate [Apical ] Respiratory Rate Blood Pressure 101/64 Blood Pressure [Le ft Upper Arm] Pulse Oximetry 97 97 96 Oxygen Delivery Me thod 12/06/21 16:31 12/06/21 16:45 Temperature Pulse Rate 74 76 Pulse Rate [Apical ] Respiratory Rate Blood Pressure 92/67 Blood Pressure [Le ft Upper Arm] Pulse Oximetry 96 96 Oxygen Delivery Me thod Documenting provider has reviewed patient's vital signs: yes Common normals: no apparent distress, oriented x3, no limitations, healthy appearing and alert General appearance: cooperative, comfortable and well kempt Nutritional appearance: thin HENMT: Common normals: normocephalic, head/scalp atraumatic, hearing grossly normal bilaterally, external ears normal and external nose normal Head and scalp: normocephalic and atraumatic Nose: external nose normal External ear: external ears normal Eye: Common normals: PERRL, EOMs intact bilaterally, conjunctivae normal and no scleral icterus Conjunctiva: conjunctiva(e) normal Pupil: PERRL Neck & C-Spine: Common normals: full ROM, no lymphadenopathy, supple, no meningeal signs, no JVD and thyroid normal Thyroid: thyroid normal Chest: Common normals: inspection of chest normal and palpation of chest normal Resp: Common normals: normal respiratory effort, no retractions, no use of accessory muscles and clear to auscultation bilaterally Auscultation: clear to auscultation bilaterally Cardio: Common normals: no JVD, regular rate, regular rhythm, S1 normal heart sound, S2 normal heart sound, no gallops, no clicks, no murmurs and no rub Rate: regular rate Rhythm: regular rhythm Heart sounds: S1 normal and S2 normal GI: Common normals: Normal to inspection, nondistended, normoactive bowel sounds present, soft to palpation, non-tender, no hepatosplenomegaly, no masses and no bruits Palpation: soft and no hepatosplenomegaly Neuro: Common normals: oriented x3 Sensorium/orientation: alert Meningeal signs: no meningeal signs Speech: speech normal Gait (neuro): normal gait Psych: Appearance: well kempt Course Course Hospital Course: Will have him on cardiac monitoring while here to see if we can capture any further arrhythmic events. Will be getting a troponin and basic labs on him. We will get a portable chest x-ray. We will do COVID testing on him given that he has a 99 temp. I have seen tachycardia with COVID but given his history this sounds like it may just be ongoing tachycardia not illness. Reevaluation(s) Reevaluation #1: Reviewed with patient and his mom that chest x-ray has not been formally read but I am not seeing any acute pathology. His troponin and labs are normal. We have not observed any arrhythmia well he has been on monitoring here. I would favor him getting a ZIO patch for monitoring from [facility] which we do not have here. I will talk to cardiology on-call and see what they recommend. Time: 16:40 Consultations Consultation #1: Spoke with cardiology on-call for [facility]. He was able to review the prior cardiology note. I did confirm with the patient that he had diminishes Mountain Dew which was recommended. Cardiology did agree that they would redo the Holter monitor given his symptoms were picking up. He recommended vagal maneuvers to see if it would lexa them, it did briefly review these with the patient and his mom. It is also recommended that they get scheduled with Dr. Last after the Holter monitor is done for follow-up and to see if there is anything further that is needed. Time: 17:14 Vital Signs Vital signs: Initial Vital Signs Temperature 99.3 F 12/06/21 15:18 Temperature Source Temporal Artery Scan 12/06/21 15:18 Pulse Rate 71 12/06/21 15:18 Pulse Rhythm 12/06/21 15:18 Respiratory Rate 18 12/06/21 15:18 Blood Pressure 103/73 12/06/21 15:18 Blood Pressure Mean 83 12/06/21 15:18 Blood Pressure Position Supine 12/06/21 15:18 Pulse Oximetry 96 12/06/21 15:18 Oxygen Delivery Method 12/06/21 15:18 Vital Signs Temperature 99.3 F 12/06/21 15:18 Pulse Rate 71 12/06/21 15:18 Respiratory Rate 18 12/06/21 15:18 Blood Pressure 103/73 12/06/21 15:18 Pulse Oximetry 96 12/06/21 15:18 Oxygen Delivery Method 12/06/21 15:18 Temperature 99.3 F 12/06/21 15:18 Pulse Rate 76 12/06/21 16:45 Respiratory Rate 18 12/06/21 15:18 Blood Pressure 92/67 12/06/21 16:31 Pulse Oximetry 96 12/06/21 16:45 Oxygen Delivery Method 12/06/21 15:18 Medical Decision Making Lab Data Lab results reviewed: Yes I reviewed the patient's lab results Lab results narrative: Patient's positive COVID PCR is reviewed. Of note, I would have ordered antigen testing if I had been aware the time this was ordered that he had had COVID at the end of October beginning of November. His mom states the whole family did. He has done antigen test at home that have been negative recently. Erratically, the antigen test is more reliable in this scenario. The PCR can remain positive for up to 3 months. I have reviewed that with mom and patient. It is not likely that he has active new COVID. Labs: Lab Results 12/06/21 12/06/21 12/06/21 Range/Units 15:50 15:50 15:50 WBC 7.48 (4.50-11.00) K/uL RBC 4.96 (4.30-5.90) m/uL Hgb 14.5 (13.5-17.5) gm/dL Hct 44.5 (37.0-53.0) % MCV 90 (80-100) fL MCH 29 (26-34) pg MCHC 33 (32-36) gm/dL RDW Coeff of Ashley 13.6 (11.5-15.5) % Plt Count 296 (140-440) K/uL Neut % (Auto) 67.5 (42.0-72.0) % Lymph % (Auto) 21.8 (20-44) % Spalding % (Auto) 7.1 (0.0-11.0) % Eos % (Auto) 2.8 (0.0-7.0) % Baso % (Auto) 0.7 (0.0-3.0) % Neut # (Auto) 5.05 (1.7-7.0) K/uL Lymph # (Auto) 1.63 (0.90-2.90) K/uL Spalding # (Auto) 0.50 (0.00-0.90) K/UL Eos # (Auto) 0.21 (0.00-0.50) K/uL Baso # (Auto) 0.05 (0.00-0.30) K/uL Abs Immat Gran (auto) 0.01 (0.00-0.30) K/uL Sodium 141 (135-149) mmol/L Potassium 4.2 (3.6-5.1) mmol/L Chloride 105 (96-114) mmol/L Carbon Dioxide 26 (20-32) mmol/L BUN 17 (5-24) mg/dL Creatinine 0.7 (0.5-1.5) mg/dL Estimated Creat Clear 130.66 Estimated GFR 134 ml/min Glucose 97 (60-115) mg/dL Calcium 9.4 (8.4-10.6) mg/dL Magnesium 2.1 (1.5-2.6) mg/dL NT-Pro-B Natriuret Pep 21 (0-125) PG/mL SARS-CoV-2 (PCR) (Negative) POC Troponin I 0.00 L (0.01-0.04) ng/ml 12/06/21 Range/Units 16:01 WBC (4.50-11.00) K/uL RBC (4.30-5.90) m/uL Hgb (13.5-17.5) gm/dL Hct (37.0-53.0) % MCV (80-100) fL MCH (26-34) pg MCHC (32-36) gm/dL RDW Coeff of Ashley (11.5-15.5) % Plt Count (140-440) K/uL Neut % (Auto) (42.0-72.0) % Lymph % (Auto) (20-44) % Spalding % (Auto) (0.0-11.0) % Eos % (Auto) (0.0-7.0) % Baso % (Auto) (0.0-3.0) % Neut # (Auto) (1.7-7.0) K/uL Lymph # (Auto) (0.90-2.90) K/uL Spalding # (Auto) (0.00-0.90) K/UL Eos # (Auto) (0.00-0.50) K/uL Baso # (Auto) (0.00-0.30) K/uL Abs Immat Gran (auto) (0.00-0.30) K/uL Sodium (135-149) mmol/L Potassium (3.6-5.1) mmol/L Chloride (96-114) mmol/L Carbon Dioxide (20-32) mmol/L BUN (5-24) mg/dL Creatinine (0.5-1.5) mg/dL Estimated Creat Clear Estimated GFR ml/min Glucose (60-115) mg/dL Calcium (8.4-10.6) mg/dL Magnesium (1.5-2.6) mg/dL NT-Pro-B Natriuret Pep (0-125) PG/mL SARS-CoV-2 (PCR) POSITIVE SARS-CoV-2 A (Negative) POC Troponin I (0.01-0.04) ng/ml Imaging Data Chest x-ray: Attestation: I have reviewed the pertinent imaging results. My impression: Patient's chest x-ray my preliminary review without any acute pathology. Radiologist's impression: Patient: SAGE CHEEMA Facility:?[facility] Patient ID:?[id number] Site Patient ID:?[id number]. Site :?2000 Study:?XRay Chest PORTABLE-12/06/2021 3:54:53 PM Ordering Physician:Екатерина Salazar Final Report: INDICATION: Fast heart rate TECHNIQUE: Two view chest. FINDINGS: The lungs are clear. The heart, mediastinum and pulmonary vessels are of normal size. There is no evidence of pleural disease. IMPRESSION: Negative chest. Dictated by Annika Rogers MD @ 12/06/2021 4:38:37 PM (Electronic Signature) ECG Data Attestation: I personally reviewed and interpreted this ECG as follows: (Sinus rhythm, 72 beats per minute, QT corrected 411 milliseconds) Critical Care Time Critical Care Time Critical Care Time: No Discharge Plan Discharge Clinical Impression: Tachycardia Condition: Stable Instructions: Valsalva Maneuver (ED), Tachycardia (ED) Additional Instructions: Activity as tolerated. Continue to minimize caffeine. Return the Holter monitor per Radiology instructions. If you have recurrent tachycardia, can try vagal maneuvers as we discussed. If the tachycardia is not going away within a couple minutes as it usually does, if it becomes prolonged, do need to be re- evaluated in the ED. otherwise, contacted [facility] to get scheduled for a followup with Dr. Last as soon as they were able to get you in. Activity Level: Activity as Tolerated Prescriptions: No Action albuterol sulfate 90 mcg/actuation HFA aerosol inhaler 2 puff inhalation QID PRN (Reason: bronchospasm) Qty: 8.5 3RF escitalopram oxalate 10 mg tablet 10 mg PO DAILY Qty: 30 2RF Follow Up/Referrals: Kar Shipman MD [Primary Care Provider] - Stand Alone [facility]: [facility] Info Instructions
--- NOTE | 2021-12-06 15:42 | CRLHL7_ITS ---
For Patients: As a result of the Century Cures Act, medical imaging exams and procedure reports are released immediately into your electronic medical record. You may view this report before your referring provider. If you have questions, please contact your health care provider. INDICATION: Fast heart rate TECHNIQUE: Two view chest. FINDINGS: The lungs are clear. The heart, mediastinum and pulmonary vessels are of normal size. There is no evidence of pleural disease. IMPRESSION: Negative chest. Dictated by Annika Rogers MD @ 12/06/2021 4:38:37 PM (Electronically Signed)
--- OUTSIDE RECORDS SUMMARY | 2021-12-06 15:59 | XMS_ITS | Encounter Summary ---
:2000 Author Organization [place] Address [address] [place] [address] Care Team Providers Name Role Phone Marie Granger MD Primary Care Provider Aminata Angela MD Unavailable Unavailable Caitlin Pham MD Unavailable [phone] Krishna Jarrett MD Unavailable Encounter Details Date [...] on filedocumented in this encounter Care Teams Scorer Single Relationship Specialty Start Date End Date Marie Granger MD PCP - General 03/06/15 [facility] [address] [place] [address] Julio César, Referring Physician Surgery 03/06/15 MD Vero Coates Jessica MD Pediatric Gastroenterology 03/06/15 MD Shira [address] [place], [place] [id number] Krishna Jarrett Assigned PCP 11/14/20 MD Arian [address] [place] [address] documented as of this encounter
--- OUTSIDE RECORDS SUMMARY | 2021-12-06 15:59 | XMS_ITS | Encounter Summary ---
:2000 Author Organization [place] Address [address] [place] [address] Care Team Providers Name Role Phone Marie Granger MD Primary Care Provider Aminata Angela MD Unavailable [facility] Unavailable [phone] Krishna Jarrett MD Unavailable Encounter Details [...] with No / Unsure 04/01/2021 2:59 PM ARTIST SUSPECT someone who 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 documented as of this encounter Miscellaneous Notes Addendum Note - Mina Hodge - 04/18/2021 10:03 AM ARTIST SUSPECT Addended by: MINA HODGE on: 04/18/2021 10:16 AM Modules accepted: Orders ST SUSPECT documented in this encounter Plan of Treatment Not on filedocumented as of this encounter Visit Diagnoses Diagnosis ERRONEOUS ENCOUNTER--DISREGARD - Primary documented in this encounter Care Teams Sports Commentator Relationship Specialty Start Date End Date Marie Granger MD PCP - General 03/06/15 [facility] [address] [place] [address] Julio César, Referring Physician Surgery 03/06/15 MD Vero Coates Jessica MD Pediatric Gastroenterology 03/06/15 MD Shira [address] [place] [address] Krishna Jarrett Assigned PCP 11/14/20 MD Arian [address] [place], [place] [address] documented as of this encounter
--- OUTSIDE RECORDS SUMMARY | 2021-12-06 15:59 | XMS_ITS | Encounter Summary ---
:2000 Author Organization [place] Address [facility] [place] [address] Care Team Providers Name Role Phone Marie Granger MD Primary Care Provider Aminata Angela MD Unavailable [facility] Un[facility] [phone] Krishna Medina MD Unavailable Reason for Visit Reason Comments Establish Care Encounter Details Date Type Department Care Team Description 11/29/2020 Office Visit [facility] Krishna Medina Mild inte rmittent Clinic [place] MD Arian asthma without [place] [address] complication (Primary [address] [place], [place] Dx) [place] [id number] Social History Tobacco Use Types Packs/Day [...] 06/01/2021) for Physical Exam. Krishna Medina MD [facility] Kaushal Bowling is a 20 year old who presents to establish care. His last provider is in [place] and he now lives in [place] and would like to establish with someone closer. He has no acute complaints today but is hoping to discuss his asthma. He reports he takes amitriptyline, escitalopram, Concerta, omeprazole, and naproxen. DIGITAL MEDIA MANAGER reviewed and shows no scripts filled for [...] asthma documented in this encounter Care Teams Mechanical Systems Control Engineer Relationship Specialty Start Date End Date Marie Granger MD PCP - General 03/06/15 [facility] [address] [place] [address] Julio César, Referring Physician Surgery 03/06/15 MD Vero Coates Jessica MD Pediatric Gastroenterology 03/06/15 MD Shira [address] [place] [address] Krishna Medina Assigned PCP 11/14/20 MD Arian [address] [place], [place] [id number] documented as of this encounter
--- OUTSIDE RECORDS SUMMARY | 2021-12-06 15:59 | XMS_ITS | Encounter Summary ---
:2000 Author Organization [facility] Address [address] [place] [address] Care Team Providers Name Role Phone Marie Granger MD Primary Care Provider Aminata Angela MD Unavailable Unavailable Caitlin Pham MD Unavailable [phone] Reason for Visit Reason Comments Consult abdominal pain Encounter Details Date Type Department Care Team Description 04/22/2015 Office Visit [facility] Caitlin Pham Abdomi nal pain, generalized (Primary Dx); [facility] Pediatric MD hSira Diarrhea; [facility] [address] [facility] Intractable vomiting with nausea, vomiti ng of unspecified type; [address] [address] [place], [place] Migraine without aura and wi thout status migrainosus, not intractable [facility] [address] [address] [phone] [place], [place] (Work) [address] [phone] Social History Tobacco Use Types Packs/Day Years Used Date Never Assessed Sex Assigned at Date Recorded Not on file documented as of this encounter Last Filed Vital Signs Vital Sign Reading Time Taken Comments Blood Pressure 125/89 04/22/2015 2:45 PM [employer] Pulse 100 04/22/2015 2:45 PM [employer] Temperature - - Respiratory Rate - - Oxygen Saturation - - Inhaled Oxygen Concentration - - Weight 46.3 kg (102 lb 1.2 oz) 04/22/2015 2:45 PM [employer] Height 169.5 cm (5' 6.73) 04/22/2015 2:45 PM [employer] Body Mass Index 16.12 04/22/2015 2:45 PM [employer] Body Mass Index Percentile 2.91 % 04/22/2015 2:45 PM CS T Growth Chart: [facility] (Boys, 2-20 Years) documented in this encounter Patient Instructions Patient InstructionsStCaitlin wong MD - 04/22/2015 4:03 PM [employer] Labs today. Start omeprazole 40mg daily. Best given 30 minutes before breakfast. Okay to use Zofran every 8 hours as needed. Continue amitriptyline as instructed by neurology. Follow up in 2 months. Please call in 2-3 weeks if no improvement in symptoms. ER AIRCRAFT documented in this encounter Progress Notes Caitlin [...] normal. Dash recently saw a Neurologist at [place] who diagnosed him with migraines and started [...] this consult, Caitlin Pham MD Pediatric Gastroenterology [facility] CC Marie Granger ER [employer] documented in this encounter Nursing Notes Kindra [...] using cuff size: small dilma Carlos LPN ER AIRCRAFT documented in this encounter Plan of Treatment Not on filedocumented as of this encounter Procedures Procedure Name Priority Date/Time Associated Comments Diagnosis CBC WITH PLATELETS & Routine 04/22/2015 4:11 Abdominal pain, R esults for this DIFFERENTIAL PM [employer] generalized procedure are i n the results section. TISSUE TRANSGLUTAMINASE Routine 04/22/2015 4:11 Abdominal pain , Results for this ESTEBAN IGA AND IGG PM [employer] generalized procedure ar e in the results section. LIPASE Routine 04/22/2015 4:11 Abdominal pain, Results f or this PM [employer] generalized procedure are i n the results section. IGA Routine 04/22/2015 4:11 Abdominal pain, Results f or this PM [employer] generalized procedure are i n the results section. HEPATIC FUNCTION PANEL Routine 04/22/2015 4:11 Abdominal pain, Results for this PM [employer] generalized procedure are i n the results section. GGT Routine 04/22/2015 4:11 Abdominal pain, Results f or this PM [employer] generalized procedure are i n the results section. ERYTHROCYTE Routine 04/22/2015 4:11 Abdominal pain, Results f or this SEDIMENTATION RATE AUTO PM [employer] generalized proc edure are in the results section. CRP INFLAMMATION Routine 04/22/2015 4:11 Abdominal pain, Resul ts for this PM [employer] generalized procedure are i n the results section. AMYLASE Routine 04/22/2015 4:11 Abdominal pain, Results f or this PM [employer] generalized procedure are i n the results section. documented in this encounter Results IgA (04/22/2015 4:11 PM [employer]) P athologist Signature IGA 197 70 - 380 [facility] mg/dL [facility] Specimen Anatomical Collection Method Collection Time Receive d Time (Source) Location / / Volume Laterality Blood specimen 04/22/2015 4:11 PM 016 4:14 (specimen) [employer] PM [employer] Caitlin Pham MD LAB - BLOOD ORDERABLES Performing Organization Address City/State/ZIP Code Phon e Number [facility] [address] [place], [place] [id number] [place] [address] Tissue transglutaminase esteban IgA and IgG (04/22/2015 4:11 PM [employer]) Patholo gist Method Time Signature Tissue 0.3 <7 U/mL [facility] Transglutaminase [facility] Antibody IgA [facility] Comment: Negative New method in use 04/18/2015. Note new re ference range. Tissue Transglutaminase Esteban <0.6 <7 U/mL [facility] [place] IgG Negative [facility] New method in use 04/18/2015. Note new reference range. CAMPUS Specimen Anatomical Collection Method Collection Time Receive d Time (Source) Location / / Volume Laterality Blood specimen 04/22/2015 4:11 PM 016 4:14 (specimen) [employer] PM [employer] Caitlin Pham MD LAB - BLOOD ORDERABLES Performing Organization Address City/[facility]/ZIP Code Phon e Number [facility] [address] [place] [address] [facility] Lipase (04/22/2015 4:11 PM [employer]) P athologist Signature Lipase 92 0 - 194 U/L [facility] Specimen Anatomical Collection Method Collection Time Receive d Time (Source) Location / / Volume Laterality Blood specimen 04/22/2015 4:11 PM 016 4:14 (specimen) [employer] PM [employer] Caitlin Pham MD LAB - BLOOD ORDERABLES Performing Organization Address City/[facility]/ZIP Code Phon e Number [facility] [address] [place] [address] [facility] Amylase (04/22/2015 4:11 PM [employer]) P athologist Signature Amylase 46 30 - 110 [facility] U/L [facility] Specimen Anatomical Collection Method Collection Time Receive d Time (Source) Location / / Volume Laterality Blood specimen 04/22/2015 4:11 PM 016 4:14 (specimen) [employer] PM [employer] Caitlin Pham MD LAB - BLOOD ORDERABLES Performing Organization Address City/State/ZIP Code Phon e Number [address] [address] [facility] GGT (04/22/2015 4:11 PM [employer]) P athologist Signature GGT 16 0 - 44 U/L [facility] Specimen Anatomical Collection Method Collection Time Receive d Time (Source) Location / / Volume Laterality Blood specimen 04/22/2015 4:11 PM 016 4:14 (specimen) [employer] PM [employer] Caitlin Pham MD LAB - BLOOD ORDERABLES Performing Organization Address City/State/ZIP Code Phon e Number [address] [address] [facility] Hepatic panel (04/22/2015 4:11 PM [employer]) athologist Signature Bilirubin Direct 0.1 0.0 - 0.2 [facility] mg/dL [facility] Bilirubin Total 0.3 0.2 - 1.3 [facility] mg/dL [facility] Albumin 4.6 3.4 - 5.0 [facility] g/dL [facility] Protein Total 8.0 6.8 - 8.8 [facility] g/dL [facility] Alkaline 257 130 - 530 [facility] Phosphatase U/L [facility] ALT 26 0 - 50 U/L [facility] AST 21 0 - 35 U/L [facility] Specimen Anatomical Collection Method Collection Time Receive d Time (Source) Location / / Volume Laterality Blood specimen 04/22/2015 4:11 PM 016 4:14 (specimen) [employer] PM [employer] Caitlin Pham MD LAB - BLOOD ORDERABLES Performing Organization Address City/State/ZIP Code Phon e Number [address] [address] [facility] CRP inflammation (04/22/2015 4:11 PM [employer]) Analysis Performed At Patho logist Time Signature CRP Inflammation <2.9 0.0 - 8.0 [facility] mg/L [facility] Specimen Anatomical Collection Method Collection Time Receive d Time (Source) Location / / Volume Laterality Blood specimen 04/22/2015 4:11 PM 016 4:14 (specimen) [employer] PM [employer] Caitlin Pham MD LAB - BLOOD ORDERABLES Performing Organization Address City/State/ZIP Code Phon e Number [address] [address] [facility] Erythrocyte sedimentation rate auto (04/22/2015 4:11 PM [employer]) P athologist Signature Sed Rate 2 0 - 15 mm/h [facility] Specimen Anatomical Collection Method Collection Time Receive d Time (Source) Location / / Volume Laterality Blood specimen 04/22/2015 4:11 PM 016 4:14 (specimen) [employer] PM [employer] Caitlin Pham MD LAB - BLOOD ORDERABLES Performing Organization Address City/[facility]/ZIP Code Phon e Number [place] [id number] [facility] CBC with platelets differential (04/22/2015 4:11 PM [employer]) Patholo gist Method Time Signature WBC 9.0 4.0 - [facility] 11.0 [facility] 10e9/L [facility] RBC Count 4.94 3.7 - 5.3 [facility] 10e12/L [facility] Hemoglobin 15.0 11.7 - [facility] 15.7 g/dL [facility] Hematocrit 43.0 35.0 - [facility] 47.0 % [facility] MCV 87 77 - 100 [facility] MCH 30.4 26.5 - [facility] 33.0 pg [facility] MCHC 34.9 31.5 - [facility] 36.5 g/dL [facility] RDW 12.8 10.0 - [facility] 15.0 % [facility] Platelet Count 343 150 - 450 [facility] 10e9/L [facility] Diff Method Automated [facility] Method [facility] % Neutrophils 58.9 % [facility] % Lymphocytes 26.9 % [facility] % Monocytes 7.2 % [facility] % Eosinophils 5.9 % [facility] % Basophils 0.9 % [facility] % Immature 0.2 % [facility] Granulocytes [facility] Nucleated RBCs 0 0 /100 [facility] Absolute 5.3 1.3 - 7.0 [facility] Neutrophil 10e9/L [facility] Absolute 2.4 1.0 - 5.8 [facility] Lymphocytes 10e9/L [facility] Absolute 0.7 0.0 - 1.3 [facility] Monocytes 10e9/L [facility] Absolute 0.5 0.0 - 0.7 [facility] Eosinophils 10e9/L [facility] Absolute 0.1 0.0 - 0.2 [facility] Basophils 10e9/L [facility] Abs Immature 0.0 0 - 0.4 [facility] Granulocytes 10e9/L [facility] Absolute 0.0 [facility] Nucleated RBC [facility] Specimen Anatomical Collection Method Collection Time Receive d Time (Source) Location / / Volume Laterality Blood specimen 04/22/2015 4:11 PM 016 4:14 (specimen) [employer] PM [employer] Caitlin Pham MD LAB - BLOOD ORDERABLES Performing Organization Address City/State/ZIP Code Phon e Number [facility] [address] [place] [address] [facility] documented in this encounter Visit Diagnoses Diagnosis Abdominal pain, generalized - Primary Diarrhea Intractable vomiting with nausea, vomiti ng of unspecified type Migraine without aura and without status migrainosus, not intractable Migraine without aura, without mention o f intractable migraine without mention of status migrainosus documented in this encounter Care Teams Regrinder Relationship Specialty Start Date End Date Marie Granger MD PCP - General 03/06/15 [place] [address] [address], [place] [address] Julio César, Referring Physician Surgery 03/06/15 MD Vero Coates Jessica MD Pediatric Gastroenterology 03/06/15 MD Shira [facility] [address] [address] documented as of this encounter
--- OUTSIDE RECORDS SUMMARY | 2021-12-06 15:59 | XMS_ITS | Encounter Summary ---
:2000 Author Organization [facility] Address [address] [place] [address] Care Team Providers Name Role Phone Marie Granger MD Primary Care Provider Aminata Angela MD Unavailable Unavailable Caitlin Pham MD Unavailable Krishna Jarrett MD Unavailable Reason for Referral Consultation (Routine) - Pending Review Specialty Diagnoses / Procedures Referred By Contact Refer red To Contact Ophthalmology Diagnoses Visual disturbance Mariela Mahoney, ARTEM [facility] [address] [address] Phone: Fax: Referral ID Status Reason Start Date Expiration Date Visits V isits Requested Authorized [id number] Pending 04/18/2021 04/18/2022 1 1 Review Scheduling Instructions Please schedule next available general o phthalmology - ER MACHINE 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 documented as of this encounter Plan of Treatment Scheduled Referrals Name Type Priority Associated Diagnoses Order S [facility] Adult Eye Referral Referral Routine Visual disturbance Exp ected: 04/18/2021 (Approximate), Expires: 04/18/2022 documented as of this encounter Visit Diagnoses Diagnosis Visual disturbance - Primary Unspecified visual disturbance documented in this encounter Care Teams Poultry Offal Icer Relationship Specialty Start Date End Date Marie Granger MD PCP - General 03/06/15 [facility] [address] [place] [address] Julio César, Referring Physician Surgery 03/06/15 MD Vero Coates Jessica MD Pediatric Gastroenterology 03/06/15 MD Shira [address] [place], [place] [id number] Krishna Jarrett Assigned PCP 11/14/20 MD Arian [address] [place], [place] [id number] documented as of this encounter
--- OUTSIDE RECORDS SUMMARY | 2021-12-06 15:59 | XMS_ITS | Encounter Summary ---
:2000 Author Organization [facility] Address [address] [place] [address] Care Team Providers Name Role Phone Marie Granger MD Primary Care Provider Aminata Angela MD Unavailable Unavailable Caitlin Pham MD Unavailable [phone] Reason for Referral Consultation (Routine) - Closed Specialty Diagnoses / Procedures Referred By Contact Refer red To Contact Diagnoses Acute left-sided low back pain with left-sided sciatica Stone Stahl PA-C [address] [facility] [place] [address] Referral ID Status Reason Start Date Expiration Date Visits Requ ested Visits Authorized [id number] Closed 07/17/2020 07/17/2021 1 1 iagnostic Imaging XR (Routine) - Closed Specialty Diagnoses / Procedures Referred By Contact Refer red To Contact Diagnoses Acute left-sided low back pain with left-sided sciatica Stone Stahl, Procedures XR Lumbar Spine 2/3 Views GRISELDA [address] [facility] [address] Referral ID Status Reason Start Date Expiration Date Visits Requ ested Visits Authorized [id number] Closed 07/17/2020 07/17/2021 1 1 Reason for Visit Reason Comments 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 ?? You may use jtct-gyq-bevcqzv medicines, such as acetaminophen, ibuprofen, or naprosyn [...] reviewed this educational content on 02/03/2019 ?? [id number] [employer]. All rights reserved. This information is not [...] often as needed. Taking medicine If taking toml-ycg-udhcitc medicine: ?? Take ibuprofen (Advil, Motrin) 600 [...] your health care provider. Copyright ?? 2018 [facility]. All rights reserved. documented in this encounter Progress Notes Stone Stahl PA-C - 07/17/2020 10:50 AM CDT Images from the original note were not included. EMPLOYER: [employer] TIME OF INJURY: 430 am 07/17/20 BETTINA: [...] (FLEXERIL) 10 MG tablet, Orthopedic & Spine Underground Electrician Referral Red flags and emergent follow up [...] taking other medicines. ?? You may use kmvl-efz-lnikgxy medicines, such as acetaminophen, ibuprofen, or naprosyn [...] legs ?? Numbness in the groin area [employer] last reviewed this educational content on 02/03/2019 ?? [id number] [employer]. All rights reserved. This information is not [...] often as needed. Taking medicine If taking fjmq-msz-fnrtyad medicine: ?? Take ibuprofen (Advil, Motrin) 600 [...] your health care provider. Copyright ?? 2018 [facility]. All rights reserved. documented in this encounter Plan of Treatment Scheduled Referrals Name Type Priority Associated Diagnoses Order S chedule Orthopedic & Spine Referral Routine Acute left-sided low E xpected: 07/17/2020, Underground Electrician Referral back pain with Expires : 07/17/2021 [...] sciatica documented in this encounter Care Teams Tower Air Traffic Control Specialist Relationship Specialty Start Date End Date Marie Granger MD PCP - General 03/06/15 [facility] [address] [place] [address] Judy Angela Physician Surgery 03/06/15 MD Vero Coates Jessica MD Pediatric Gastroenterology 03/06/15 MD Shira [address] [place] [address] documented as of this encounter
--- OUTSIDE RECORDS SUMMARY | 2021-12-06 15:59 | XMS_ITS | Encounter Summary ---
:2000 Author Organization [place] Address [facility] [place] [address] Care Team Providers Name Role Phone Marie Granger MD Primary Care Provider Aminata Angela MD Unavailable [facility]available [facility] MD Unavailable [phone] Krishna Jarrett MD Unavailable Reason for Visit Reason Comments Cough Cough worsening the last 4 d ays. Neg covid test yesterday Encounter Details Date Type Department Care Team Description 08/25/2021 Office Visit [facility] Gaurav Boyd, Acute bacterial sinusitis (Primary Dx); Urgent Care [facility] DOMINGUEZ-Tavon Sinus drainage; [address] Mild persistent asthma with [place] [address] [phone] Social History Tobacco Use Types Packs/Day Years [...] sent through Care Everywhere. Sinusitis (Antibiotic Treatment) (Swiss)Asthma, Acute (Adult) (Swiss) documented in this encounter Progress Notes Gaurav [...] - fluticasone (FLONASE) 50 MCG/ACT nasal spray; [place] 1 spray into both nostrils daily Mild [...] questions. No follow-ups on file. Gaurav Boyd, [facility], [facility] Dash is a 21 year old [...] exacerbation documented in this encounter Care Teams Licensed Certified Orthotist Relationship Specialty Start Date End Date Marie Granger MD PCP - General 03/06/15 [facility] [address] [place] [address] Julio César, Referring Physician Surgery 03/06/15 MD Vero Coates Jessica MD Pediatric Gastroenterology 03/06/15 MD Shira [address] [place] [address] Krishna Jarrett Assigned PCP 11/14/20 MD Arian [address] [place], [place] [address] documented as of this encounter
--- OUTSIDE RECORDS SUMMARY | 2021-12-06 15:59 | XMS_ITS | Encounter Summary ---
:2000 Author Organization [facility] Address [address] [place] [address] Care Team Providers Name Role Phone Marie Granger MD Primary Care Provider Aminata Angela MD Unavailable [facility]available [facility] Unavailable [phone] Krishna Jarrett MD Unavailable Encounter Details [...] on filedocumented in this encounter Care Teams Granulator Tender Relationship Specialty Start Date End Date Marie Granger MD PCP - General 03/06/15 [facility] [address] [place] [address] Julio César, Referring Physician Surgery 03/06/15 MD Vero Coates Jessica MD Pediatric Gastroenterology 03/06/15 MD Shira [address] [place] [address] Krishna Jarrett Assigned PCP 11/14/20 MD Arian [address] [place] [address] documented as of this encounter
--- OUTSIDE RECORDS SUMMARY | 2021-12-06 15:59 | XMS_ITS | Encounter Summary ---
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 [...] condition should worsen. HUNG ISRAEL MD [place]: [facility] Document: [id number] [place], [place] Name: SAGE CHEEMA EMERGENCY ROOM ENCOUNTER Page 3 of 2 LCN: ER DSC: 06/03/2003 [place], [place] Name: SAGE CHEEMA MR#: : Admit Date: -83 2000 06/03/2003 Doctor: HUNG ISRAEL MD EMERGENCY ROOM ENCOUNTER Page 1 of 2 DING ARCHITECT documented in this encounter Plan of Treatment Not on filedocumented as of this encounter Visit Diagnoses Not on filedocumented in this encounter
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
--- OUTSIDE RECORDS SUMMARY | 2021-12-06 15:59 | XMS_ITS | Encounter Summary ---
:2000 Author Organization [place] Address [facility] [place] [address] Care Team Providers Name Role Phone Marie Granger MD Primary Care Provider Aminata Angela MD Unavailable [facility] Un[facility] Reason for Visit Reason Comments Epistaxis for the past two days. Flushing like he was going to pass out today. Encounter Details Date Type Department Care Team Description 03/23/[address] [facility] Benny Mena MD Epistaxis [facility] Emergency Dept [facility] [address] [place] [address] [place] [address] (Wo rk) Social History Tobacco Use Types Packs/Day Years Used Date Never Assessed Sex Assigned at Date Recorded Not on file documented as of this encounter Last Filed Vital Signs Vital Sign Reading Time Taken Comments Blood Pressure 120/82 03/23/2017 12:15 PM [facility] Pulse 100 03/23/2017 12:15 PM [facility] Temperature 36.6 ??C (97.9 ??F) 03/23/2017 10:54 AM [facility] Respiratory Rate 16 03/23/2017 12:15 PM [facility] Oxygen Saturation 99% 03/23/2017 12:15 PM [facility] Inhaled Oxygen Concentration - - Weight 54.9 kg (121 lb) 03/23/2017 10:54 AM [facility] Height 175.3 cm (5' 9) 03/23/2017 10:54 AM [facility] Body Mass Index 17.87 03/23/2017 10:54 AM [facility] Body Mass Index Percentile 6.99 % 03/23/2017 10:[address] Growth Chart: [facility] (Boys, 2-20 Years) documented in this [...] one option. There are nasal sprays available [id number] for this purpose as well. Using a [...] bleeding temporarily, but that is okay. ??? [place] decongestant nose spray (like Afrin??) into both nostrils to constrict the blood vessels. ??? Sit or stand while bending forward slightly at the waist. Do not lie down or tilt your head back. This may cause you to swallow blood and can lead to vomiting. ??? Makeup Editor the soft part of BOTH nostrils at [...] if there is anything that worries you. [facility] documented in this encounter Medications at Time [...] sinus rhythm Normal ECG Rate 95 bpm. ME interval 130. QRS duration 96. QT/QTc 346/434. [...] EMERGENCY DEPARTMENT Benny Mena MD 03/23/17 1448 [facility] S[facility] documented in this encounter Plan of Treatment Not on filedocumented as of this encounter Procedures Procedure Name Priority Date/Time Associated Comments Diagnosis EKG 12-LEAD, TRACING STAT 03/23/2017 11:27 Res ults for this ONLY AM [facility] procedure are i n the results section. CBC WITH PLATELETS & STAT 03/23/2017 11:14 Res ults for this DIFFERENTIAL AM [facility] procedure are i n the results section. BASIC METABOLIC PANEL STAT 03/23/2017 11:14 Re sults for this AM [facility] procedure are i n the results section. documented in this encounter Results EKG 12 lead (03/23/2017 11:27 AM [facility]) [facility] gist Method Time Signature Interpretation ECG Click View RADIOLOGY Image link RESULTS to view waveform and result Specimen (Source) Anatomical Collection Method Collection Time Re ceived Time Location / / Volume Laterality 03/23/2017 11:27 AM [facility] Benny Mena MD ECG ORDERABLES Performing Organization Address City/State/ZIP Code Phon e Number RADIOLOGY RESULTS (ABNORMAL) Basic metabolic panel (03/23/2017 11:14 AM [facility]) P athologist Signature Sodium 139 133 - 144 03/23/2017 [place] mmol/L 11:50 AM [facility] Potassium 4.0 3.4 - 5.3 03/23/2017 [place] mmol/L 11:50 AM [facility] Chloride 107 98 - 110 03/23/2017 [place] mmol/L 11:50 AM [facility] Carbon Dioxide 28 20 - 32 03/23/2017 [place] mmol/L 11:50 AM [facility] Anion Gap 4 3 - 14 03/23/2017 [place] mmol/L 11:50 AM [facility] Glucose 90 70 - 99 03/23/2017 [place] mg/dL 11:50 AM [facility] Urea Nitrogen 6 (L) 7 - 21 03/23/2017 [place] mg/dL 11:50 AM [facility] Creatinine 0.68 0.50 - 03/23/2017 [place] 1.00 mg/dL 11:50 AM [facility] GFR Estimate >90 >60 03/23/2017 [place] mL/min/1.7 11:[address] Comment: Non GFR Calc GFR Estimate If >90 >60 mL/min/1.7m2 03/23/2017 11:50 AM [facility] Comment: GFR Calc Calcium 8.9 (L) 9.1 - 10.3 mg/dL 03/23/2017 11:50 AM [facility] Specimen Anatomical Collection Method Collection Time Receive d Time (Source) Location / / Volume Laterality Blood specimen 03/23/2017 11:14 7 (specimen) AM [facility] 11:30 AM [facility] Benny Mena MD LAB - BLOOD ORDERABLES Performing Organization Address City/State/ZIP Code Phon e Number M [facility] [address] [place] [phone] [facility] [address] [place] [phone], [place] [phone] CBC with platelets + differential (03/23/2017 11:14 AM [facility]) [facility] gist Method Time Signature WBC 6.2 4.0 - 03/23/2017 [facility] 11.0 11:41 AM [facility] 10e9/L [facility] RBC Count 5.09 3.7 - 5.3 03/23/2017 [facility] 10e12/L 11:41 AM [facility] Hemoglobin 15.0 11.7 - 03/23/2017 [facility] 15.7 g/dL 11:41 AM [facility] Hematocrit 43.7 35.0 - 03/23/2017 [facility] 47.0 % 11:41 AM [facility] MCV 86 77 - 100 03/23/2017 [facility] fl 11:41 AM [facility] MCH 29.5 26.5 - 03/23/2017 [facility] 33.0 pg 11:41 AM [facility] MCHC 34.3 31.5 - 03/23/2017 [facility] 36.5 g/dL 11:41 AM [facility] RDW 12.8 10.0 - 03/23/2017 [facility] 15.0 % 11:41 AM [facility] Platelet Count 330 150 - 450 03/23/2017 [facility] 10e9/L 11:41 AM [facility] Diff Method Automated 03/23/2017 [facility] Method 11:41 AM [facility] % Neutrophils 53.3 % 03/23/2017 [facility] 11:41 AM [facility] % Lymphocytes 32.2 % 03/23/2017 [facility] 11:41 AM [facility] % Monocytes 10.7 % 03/23/2017 [facility] 11:41 AM [facility] % Eosinophils 3.2 % 03/23/2017 [facility] 11:41 AM [facility] % Basophils 0.6 % 03/23/2017 [facility] 11:41 AM [facility] % Immature 0.0 % 03/23/2017 [facility] Granulocytes 11:41 AM [facility] Absolute 3.3 1.3 - 7.0 03/23/2017 [facility] Neutrophil 10e9/L 11:41 AM [facility] Absolute 2.0 1.0 - 5.8 03/23/2017 [facility] Lymphocytes 10e9/L 11:41 AM [facility] Absolute 0.7 0.0 - 1.3 03/23/2017 [place] Monocytes 10e9/L 11:41 AM [facility] Absolute 0.2 0.0 - 0.7 03/23/2017 [place] Eosinophils 10e9/L 11:41 AM [facility] Absolute 0.0 0.0 - 0.2 03/23/2017 [place] Basophils 10e9/L 11:41 AM [facility] Abs Immature 0.0 0 - 0.4 03/23/2017 [place] Granulocytes 10e9/L 11:41 AM [facility] Specimen Anatomical Collection Method Collection Time Receive d Time (Source) Location / / Volume Laterality Blood specimen 03/23/2017 11:14 7 (specimen) AM [facility] 11:30 AM [facility] Benny Mena MD LAB - BLOOD ORDERABLES Performing Organization Address City/State/ZIP Code Phon e Number M [facility] [address] [place] [phone] [facility] [address] [place] [address], [facility] [phone] documented in this encounter Visit Diagnoses Diagnosis Epistaxis documented in this encounter Care Teams Veneer Splicer Relationship Specialty Start Date End Date Marie Granger MD PCP - General 03/06/15 [facility] [address] [place] [address] Julio César, Referring Physician Surgery 03/06/15 MD Vero Coates Jessica MD Pediatric Gastroenterology 03/06/15 MD [facility] [address] [address] documented as of this encounter
--- OUTSIDE RECORDS SUMMARY | 2021-12-06 15:59 | XMS_ITS | Clinical Summary ---
:2000 Author Organization [facility] [place] [address] Care Team Providers Name Role Phone Viv Shipman MD Primary Care Provider Allergies No known active allergies Medications Medication Sig Dispensed Refills Start Date End Date Status methylphenidate Take 36 mg by 0 Active (CONCERTA) 36 mg CR mouth once tablet daily. MULTIVITAMIN ORAL Take by mouth. 0 Active ibuprofen (IBU-200) 200 Take 200 mg by 0 Active mg tablet mouth 4 times daily if needed. CLONAZEPAM (KLONOPIN Take by mouth. 0 Active ORAL) ALBUTEROL INHL Inhale by mouth. 0 Active albuterol (PROVENTIL) Inhale 3 mL via 1 box 0 12/27/2010 Active 0.083 % neb solution a nebulizer every 4 hours if needed for Cough, Shortness Of Breath and Wheezing. ondansetron (ZOFRAN Place 1-2 8 tablet 0 10/02/2018 Active ODT) 4 mg tablets on the disintegrating tongue every 8 tabletIndications: hours if needed Nausea and vomiting, for intractability of Nausea/Vomiting. vomiting not specified, unspecified vomiting type benzonatate (TESSALON) Take 1 capsule 30 capsule 0 02/05/2019 Active 200 mg by mouth 3 times capsuleIndications: daily if needed Viral URI with cough for Cough. Active Problems Problem Noted Date Attention deficit disorder with hyperactivity(314.01) 05/20/2010 Encounters Date Type Specialty Care Team Description 11/21/2021 Office Visit Moshe Last MD 11/21/2021 Travel 10/24/2021 Orders Only <No scans attac hed> from Last 3 Months Immunizations Name Administration Dates Next Due DTaP 05/25/2005, 09/16/2001, 2000, 2000, 2000 HIB HbOC (HibTITER) 09/16/2001, 2000, 2000 HIB-HepB (Comvax) 2000 Hepatitis A (Peds) 07/11/2010, 11/21/2007 Hepatitis B (Peds) 05/04/2001, 2000 Hepatitis B, Unspecified 12/02/2001 Inactivated Polio Vaccine 05/25/2005, 08/11/2002, 05/04/2001 , 2000, 2000 MMR 05/25/2005, 05/31/2001 Meningococcal Vaccine (Menactra) 05/23/2012 Pneumococcal conj 7-Valent (Prevnar 7) 2000, 1, 2000 Tdap 05/23/2012 Varicella Vaccine 03/19/2006, 05/31/2001 Social History Tobacco Use Types Packs/Day Years Used Date Never Smoker Smokeless Tobacco: Never Used Alcohol Use Standard Drinks/Week Comments Never 0 (1 standard drink = 0.6 oz pure alcoho l) Alcohol Habits Answer Date Recorded How often do you have a drink containing alcohol? Never 10/02/2018 How many drinks containing alcohol do you have on a typical Not asked day when you are drinking? How often do you have six or more drinks on one occasion? No t asked Comment: Not asked Sex Assigned at Date Recorded Not on file COVID-19 Exposure Response Date Recorded In the last 10 days, have you been in contact Unable to asse ss 11/21/2021 7:14 AM CDT with someone who was confirmed or suspected to have Coronavirus/COVID-19? Obstetrics History Last Filed Vital Signs Vital Sign Reading Time Taken Comments Blood Pressure 128/70 02/05/2019 12:51 PM BLOOD BANK CREDIT CLERK Pulse 70 02/05/2019 12:51 PM BLOOD BANK CREDIT CLERK Temperature 36.7 ??C (98 ??F) 02/05/2019 12:51 PM BLOOD BANK CREDIT CLERK Respiratory Rate 20 02/05/2019 12:51 PM BLOOD BANK CREDIT CLERK Oxygen Saturation 97% 02/05/2019 12:51 PM BLOOD BANK CREDIT CLERK Inhaled Oxygen Concentration - - Weight 56.7 kg (125 lb) 02/05/2019 12:51 PM BLOOD BANK CREDIT CLERK Height 188 cm (6' 2) 10/01/2018 11:28 PM CDT Body Mass Index - - Plan of Treatment Upcoming Encounters Date Type Specialty Care Team Description 02/11/2022 Office Visit Robin Banegas MD [address] [place] [address] (Wo rk) Health Maintenance Due Date Last Done Comments HPV series for age 9-26 (1 - Male 2011 2-dose series) Depression screening for age 12+ 2012 BMI (ht and wt on same day) for 2018 age 18+ Hepatitis C screening for age 0205/21/2018 18-79 COVID-19 vaccine series (2 - 10/04/2020 08/09/2020 Booster for Sabine series) Influenza for age 9-49 12/04/2021 Tetanus booster 05/23/2022 05/23/2012 Meningococcal series for age 11-21 Aged Out 05/23/2012 No longer eligible based on patient's age to complete this topic Tdap Completed 05/23/2012 Procedures Procedure Name Priority Date/Time Associated Diagnosis Comme nts ECHO COMPLETE WO Routine 10/24/2021 10:30 AM Syncope Results for this CONTRAST CDT Collapse procedure are i n the results section. from Last 3 Months Results ECHO COMPLETE WO CONTRAST (10/24/2021 10:30 AM CDT) P athologist Signature AORTIC VALVE 2 mmHg MEAN PG EJECTION 60 % FRACTION PEAK TR 2.0 m/s VELOCITY LVEDD 5.1 cm EJECTION 55 - 60% FRACTION Anatomical Region Laterality Modality HEART Ultrasound Specimen (Source) Anatomical Collection Method Collection Time Re ceived Time Location / / Volume Laterality 10/24/2021 10:05 AM CDT Narrative 10/24/2021 11:47 AM CDT ECHOCARDIOGRAM SAGE CHEEMA ? Accessi on#: ?? [id number] : ?2000 21 years Study Date: ?? 10/24/2021 10:05:12 AM Gender: M ?BP: ? 112/74 mmHg Height: 180.00 cm ?BSA: ?1.70 m? ?? Weight: 55.00 kg ? Tech: ? MCK ? Referring MD: VIV SHIPMAN Site: ? [facility] Reading Location: Mobile-[facility] Procedure: 2D, Color Doppler and Spectra l Doppler. Indication for study: Syncope and collap se Cardiac Rhythm: Normal sinus.Study quali ty: Excellent. Final Impressions: 1. Normal LV size, normal wall thicknes s, normal function with an estimated EF of 55 - 60%. 2. Right ventricular cavity size is nor mal, global systolic RV function is normal. 3. Posterior leaflet mitral valve prola pse with trace mitral regurgitation. 4. Normal estimated pulmonary pressure (15 mmHg plus RAP). Comparison There are no prior studies on this patie nt for comparison purposes. Chamber Sizes and Function Normal left ventricular size, normal wal l thickness, normal global systolic function with an estimated EF of 55 - 60%. Left atrial size is normal. Left atrial pressure is normal. Right ventricular cavit y size is normal, global systolic RV fun ction is normal. RV wall thickness is normal. The right atrium is normal. Right atrial area is 12 cm? ??. The pulmonary artery is not well visualized. The sinus o f Valsalva is normal sized. The ascendin g aorta is normal sized. Valves, RV Pressures and Diastolic Funct ion The aortic valve is normal in structure and trileaflet, no stenosis and no regurgitation. The mitral valve is myxomatous, trace mitral regurgitation. Normal diastolic function. The tricuspid valve is no rmal in structure. Tricuspid regurgitati on is trace regurgitation. The tricuspid regurgitant velocity is 2.0 m/s, the estimated right ventricular systolic pressure is 15 mmHg plus right atrial pressure. There is normal estimated pulmonary pre ssure by tricuspid regurgitation velocity and right atrial pressure. The pulmonic valve is normal. Trace pulmonary regurgitation. Masses, Effusion, Shunts There is no pericardial effusion. The in ferior vena cava is normal sized, respiratory size variation greater than 50%. No left to right shunting was detected by limited color flow Doppler interrogation of the interatrial septum. MEASUREMENTS AND CALCULATIONS 2-D Measurements and LV Function: LVID (d) 5.1 cm LV FS% (2D) ?? 43 % LVID (s) 2.9 cm LVOT diameter 2.4 cm IVS (d) ??1.0 cm HR ?60 bpm LVPW (d) 0.8 cm RA area ? 12 cm? ?? Ao Sinus 3.0 cm RV Max 4C (d) 3.1 cm Asc Ao ?? 2.8 cm LA ? 2.6 cm Diastology: Mitral ?Tissue Doppler ?Pulmonary veins E Peak 0.5 m/s ??e', Septum ? 0.14 m /s Pulm s ?48.3 cm/s A Peak 0.4 m/s ??e', Lateral ?0.14 m /s Pulm d ?46.0 cm/s E/A ?1.4 ?E/e' Average ?? 3.8 8 ? Pulm s/d ratio ??1.05 DT ? 139 msec IVRT ?? 117 msec Aortic Valve: Vmax ? 1.0 m/s ??MADDIE (V) ?? 4.50 cm? ?? VTI ?0.17 m ?? MADDIE (I) ?? 4.99 cm? ?? LVOT V max 1.0 m/s ??Max PG ?4 mmHg LVOT VTI ?? 0.18 m ?? Mean PG ?? 2 mmHg SV ? 86 ml ?Dim Index 1.08 SV index ?? 50 ml/m? ?? CO ?5.1 l/min ?CI ?3.0 l/min/m? ?? Mitral Valve: MVA ?5.5 cm? ?? MV P 1/2 40 msec Tricuspid Valve and estimated PA pressur es: TR Vmax 2.0 m/s TAPSE 2.3 cm TR maxG 15 mmHg . This study was interpreted by an [facility] red[facility] facility. CC: [facility] and [facility]. ??Final ?? Procedure Note José Luis Johnson MD - 10/24/2021Fo rmatting of this note might be different from the original. ECHOCARDIOGRAM SAGE CHEEMA : 2000 21 years Study Date: 10/24 10:05:12 AM Gender: M BP: 112/74 mmHg Height: 180.00 cm BSA: 1.70 m? ?? Weight: 55.00 kg Tech: [facility] Referring MD: VIV SHIPMAN Site: [facility] Reading Location: Mobile[facility] Procedure: 2D, Color Doppler and Spectra l Doppler. Indication for study: Syncope and collap se Cardiac Rhythm: Normal sinus.Study quali ty: Excellent. Final Impressions: 1. Normal LV size, normal wall thicknes s, normal function with an estimated EF of 55 - 60%. 2. Right ventricular cavity size is nor mal, global systolic RV function is normal. 3. Posterior leaflet mitral valve prola pse with trace mitral regurgitation. 4. Normal estimated pulmonary pressure (15 mmHg plus RAP). Comparison There are no prior studies on this patie nt for comparison purposes. Chamber Sizes and Function Normal left ventricular size, normal wal l thickness, normal global systolic function with an estimated EF of 55 - 60%. Left atrial size is normal. Left atrial pressure is normal. Right ventricular cavity size is normal, global systolic RV function is n ormal. RV wall thickness is normal. The right atrium is normal. Right atrial area is 12 cm? ??. The pulmonary artery is not well visualized. The sinus of Valsalva is normal sized. The ascending aorta is normal siz ed. Valves, RV Pressures and Diastolic Funct ion The aortic valve is normal in structure and trileaflet, no stenosis and no regurgitation. The mitral valve is myxomatous, trace mitral regurgitation. Normal diastolic function. The tricuspid valve is normal in structure. Tricuspid regurgitation is trace regurgi tation. The tricuspid regurgitant velocity is 2.0 m/s, the estimated right ventricular systolic pressure is 15 mmHg plus right atrial pressure. There is normal estimated pulmonary pressure by tricuspid regurgitation [place] and right atrial pressure. The pulmonic valve is normal. Trace pulmonary regurgitation. Masses, Effusion, Shunts There is no pericardial effusion. The in ferior vena cava is normal sized, respiratory size variation greater than 50%. No left to right shunting was detected by limited color flow Doppler interrogation of the interatrial septum. MEASUREMENTS AND CALCULATIONS 2-D Measurements and LV Function: LVID (d) 5.1 cm LV FS% (2D) 43 % LVID (s) 2.9 cm LVOT diameter 2.4 cm IVS (d) 1.0 cm HR 60 bpm LVPW (d) 0.8 cm RA area 12 cm? ?? Ao Sinus 3.0 cm RV Max 4C (d) 3.1 cm Asc Ao 2.8 cm LA 2.6 cm Diastology: Mitral Tissue Doppler Pulmonary veins E Peak 0.5 m/s e', Septum 0.14 m/s Pulm s 48.3 cm/s A Peak 0.4 m/s e', Lateral 0.14 m/s Pulm d 46.0 cm/s E/A 1.4 E/e' Average 3.88 Pulm s/d ratio 1.05 DT 139 msec IVRT 117 msec Aortic Valve: Vmax 1.0 m/s MADDIE (V) 4.50 cm? ?? VTI 0.17 m MADDIE (I) 4.99 cm? ?? LVOT V max 1.0 m/s Max PG 4 mmHg LVOT VTI 0.18 m Mean PG 2 mmHg SV 86 ml Dim Index 1.08 SV index 50 ml/m? ?? CO 5.1 l/min CI 3.0 l/min/m? ?? Mitral Valve: MVA 5.5 cm? ?? MV P 1/2 40 msec Tricuspid Valve and estimated PA pressur es: TR Vmax 2.0 m/s TAPSE 2.3 cm TR maxG 15 mmHg . This study was interpreted by an [facility]. CC: [facility]. Final Viv Shipman MD ECHO ORD from Last 3 Months Insurance Payer Benefit Plan / Subscriber ID Effective Dates Phone Addre ss Type Group [employer] [id number] 2021-Present [address] [place] [address] Care Teams Utilization Review Coordinator Relationship Specialty Start Date End Date Viv Shipman MD PCP - General Family Practice 10/01/18 [address] [place] [address]
--- OUTSIDE RECORDS SUMMARY | 2021-12-06 15:59 | XMS_ITS | Encounter Summary ---
:2000 Author Organization [place] Address [address] [place] [address] Care Team Providers Name Role Phone Marie Granger MD Primary Care Provider Aminata Angela MD Unavailable [facility] Unavailable [phone] Krishna Jarrett MD Unavailable Encounter Details [...] on filedocumented in this encounter Care Teams Remote Medical Coder Relationship Specialty Start Date End Date Marie Granger MD PCP - General 03/06/15 [facility] [address] [place] [address] Julio César, Referring Physician Surgery 03/06/15 MD Vero Coates Jessica MD Pediatric Gastroenterology 03/06/15 MD Shira [address] [place] [address] Krishna Jarrett Assigned PCP 11/14/20 MD Arian [address] [place] [address] documented as of this encounter
--- OUTSIDE RECORDS SUMMARY | 2021-12-06 15:59 | XMS_ITS | Encounter Summary ---
:2000 Author Organization [place] Address [address] [place] [address] Care Team Providers Name Role Phone Marie Granger MD Primary Care Provider Aminata Angela MD Unavailable Unavailable Caitlin Pham MD Unavailable [phone] Encounter Details Date Type Department Care Team [...] on filedocumented in this encounter Care Teams Tenant Coordinator Relationship Specialty Start Date End Date Marie Granger MD PCP - General 03/06/15 [facility] [address] [place] [address] Julio César Referring Physician Surgery 03/06/15 MD Vero Coates Jessica MD Pediatric Gastroenterology 03/06/15 MD Shira [address] [place] [address] documented as of this encounter
--- OUTSIDE RECORDS SUMMARY | 2021-12-06 15:59 | XMS_ITS | Encounter Summary ---
:2000 Author Organization [place] Address [facility] [place] [address] Care Team Providers Name Role Phone Marie Granger MD Primary Care Provider Aminata Angela MD Unavailable [facility] Un[facility] [phone] Krishna Jarrett MD Unavailable Reason for Referral Diagnostic Imaging CT Scan (Routine) - Closed Specialty Diagnoses / Procedures Referred By Contact Refer red To Contact Radiology. Diagnoses Dizziness Visual disturbance Kindra Mays, Rand Ct Scan Procedures CT Head w/o & w Contrast PA-C [address] [place] [address] [place] [id number] Referral ID Status Reason Start Date Expiration Date Visits Requ ested Visits Authorized [id number] Closed 01/08/2021 01/08/2022 1 1 Reason for Visit Diagnostic Imaging CT Scan (Routine) - Closed Specialty Diagnoses / Procedures Referred By Contact Refer red To Contact Radiology. Diagnoses Dizziness Visual disturbance Kindra Mays, Sh Ct Scan Procedures CT Head w/o & w Contrast PA-C [address], [place] [address] [place], [place] [address] Referral ID Status Reason Start Date Expiration Date Visits Requ ested Visits Authorized [id number] Closed 01/08/2021 01/08/2022 1 1 Encounter Details Date Type Department Care Team Description 01/09/2021 Hospital Encounter [facility] Kindra Mays Dizziness; Travis Nieves PA-C Visual disturbance [address] [place] [address] [phone] Social History Tobacco Use Types Packs/Day Years [...] scan. documented in this encounter Care Teams Record Retrieval Specialist Relationship Specialty Start Date End Date Marie Granger MD PCP - General 03/06/15 [facility] [address] [place] [address] Julio César, Referring Physician Surgery 03/06/15 MD Vero Coates Jessica MD Pediatric Gastroenterology 03/06/15 MD Shira [address] [place] [address] Krishna Jarrett Assigned PCP 11/14/20 MD Arian [address] [place] [address] documented as of this encounter
--- OUTSIDE RECORDS SUMMARY | 2021-12-06 15:59 | XMS_ITS | Encounter Summary ---
:2000 Author Organization [place] Address [address] [place] [address] Care Team Providers Name Role Phone Marie Granger MD Primary Care Provider Aminata Angela MD Unavailable Unavailable Caitlin Pham MD Unavailable [phone] Krishna Jarrett MD Unavailable Encounter Details Date [...] on filedocumented in this encounter Care Teams Boiler Assistant Operator Relationship Specialty Start Date End Date Marie Granger MD PCP - General 03/06/15 [facility] [place] [address] Julio César, Referring Physician Surgery 03/06/15 MD Vero Coates Jessica MD Pediatric Gastroenterology 03/06/15 MD Shira [address] [place], [place] [address] Krishna Jarrett Assigned PCP 11/14/20 MD Arian [address] [place] [address] documented as of this encounter
--- OUTSIDE RECORDS SUMMARY | 2021-12-06 15:59 | XMS_ITS | Encounter Summary ---
:2000 Author Organization [place] Address [address] [place] [address] Care Team Providers Name Role Phone Marie Granger MD Primary Care Provider Aminata Angela MD Unavailable Unavailable Caitlin Pham MD Unavailable [phone] Krishna Jarrett MD Unavailable Encounter Details Date Type Department Care Team Description 11/19/2020 Travel Social History Tobacco Use Types Packs/Day Years Used Date Never Smoker Smokeless Tobacco: Never Used Sex Assigned at Date Recorded Not on file COVID-19 Exposure Response Date Recorded In the last month, have you been in contact with No / Unsure 11/19/2020 9:20 AM CDT someone who 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 documented as of this encounter Plan of Treatment Not on filedocumented as of this encounter Visit Diagnoses Not on filedocumented in this encounter Care Teams Airplane Inspector Relationship Specialty Start Date End Date Marie Granger MD PCP - General 03/06/15 [facility] [address] [place] [address] Julio César, Referring Physician Surgery 03/06/15 MD Vero Coates Jessica MD Pediatric Gastroenterology 03/06/15 MD Shira [address] [place], [place] [address] Krishna Jarrett Assigned PCP 11/14/20 MD Arian [address] [place] [address] documented as of this encounter
--- OUTSIDE RECORDS SUMMARY | 2021-12-06 15:59 | XMS_ITS | Encounter Summary ---
:2000 Author Organization [place] Address [facility] [place] [address] Care Team Providers Name Role Phone Marie Granger MD Primary Care Provider Aminata Angela MD Unavailable [facility]available [facility] Un[facility] [phone] Krishna Medina MD Unavailable Reason for Visit Reason Comments Establish Care Results CT head Encounter Details Date Type Department Care Team Description 01/13/2021 Office Visit [facility] Krishna Medina Pre-synco pe (Primary Dx); Clinic Lianna Don MD Mild intermittent asthma without complic ation; [place] [address] Encounter for immunization [address] [address] Social History Tobacco Use Types Packs/Day [...] years ago. He reports being seen in [place]. He would like to continue being seen [...] QUAD SPLIT VIR > 6 MONTHS IM ([id number]) - PPSV23, IM/SUBQ (2+ YRS) - [id number] Return in about 6 months (around 07/14/2021) for Physical Exam. Krishna Medina MD [facility] ARACELI Bowling is a 20 year [...] disease documented in this encounter Care Teams Associate Professor Of Philosophy Relationship Specialty Start Date End Date Marie Granger MD PCP - General 03/06/15 [facility] [address] [place] [address] Julio César, Referring Physician Surgery 03/06/15 MD Vero Coates Jessica MD Pediatric Gastroenterology 03/06/15 MD Shira [facility] [address] [address] Krishna Medina Assigned PCP 11/14/20 MD Arian [address] [place], [place] [address] documented as of this encounter
--- OUTSIDE RECORDS SUMMARY | 2021-12-06 15:59 | XMS_ITS | Encounter Summary ---
:2000 Author Organization [place] Address [address] [place] [address] Care Team Providers Name Role Phone Marie Granger MD Primary Care Provider Aminata Angela MD Unavailable Unavailable Caitlin Pham MD Unavailable [phone] Krishna Jarrett MD Unavailable Encounter Details Date [...] on filedocumented in this encounter Care Teams Kids Activities Coach Relationship Specialty Start Date End Date Marie Granger MD PCP - General 03/06/15 [facility] [address] [place] [address] Julio César, Referring Physician Surgery 03/06/15 MD Vero Coates Jessica MD Pediatric Gastroenterology 03/06/15 MD Shira [address] [place], [place] [address] Krishna Jarrett Assigned PCP 11/14/20 MD Arian [address] [place] [address] documented as of this encounter
--- OUTSIDE RECORDS SUMMARY | 2021-12-06 15:59 | XMS_ITS | Encounter Summary ---
:2000 Author Organization [place] Address [address] [place] [address] Care Team Providers Name Role Phone Marie Granger MD Primary Care Provider Aminata Angela MD Unavailable Unavailable Caitlin Pham MD Unavailable [phone] Reason for Visit Diagnostic Imaging XR (Routine) - Closed Specialty Diagnoses / Procedures Referred By Contact Refer red To Contact Diagnoses Acute left-sided low back pain with left-sided sciatica [facility], Procedures XR Lumbar Spine 2/3 Views PA-C [address] [facility] [place] [address] Referral ID Status Reason Start Date Expiration Date Visits Requ ested Visits Authorized [id number] Closed 07/17/2020 07/17/2021 1 1 Encounter Details Date Type Department Care Team Description 07/17/2020 Ancillary [facility] Stone Stahl le ft-sided low Procedure [facility] [place] Riccardo Minaya, P A-C back pain with [place] [address] left-sided sciatica [address] [place] [phone] Social History Tobacco Use Types Packs/Day [...] sciatica documented in this encounter Care Teams Transplanter Relationship Specialty Start Date End Date Marie Granger MD PCP - General 03/06/15 [facility] [address] [place] [address] Julio César Referring Physician Surgery 03/06/15 MD Vero Coates Jessica MD Pediatric Gastroenterology 03/06/15 MD Shira [facility] [address] [address] documented as of this encounter
--- OUTSIDE RECORDS SUMMARY | 2021-12-06 15:59 | XMS_ITS | Encounter Summary ---
:2000 Author Organization [place] Address [address] [place] [address] Care Team Providers Name Role Phone Marie Granger MD Primary Care Provider Aminata Angela MD Unavailable Unavailable Caitlin Pham MD Unavailable [phone] Krishna Jarrett MD Unavailable Encounter Details Date [...] on filedocumented in this encounter Care Teams Machine Or Machinery Mechanic Relationship Specialty Start Date End Date Marie Granger MD PCP - General 03/06/15 [facility] [address] [place] [address] Julio César, Referring Physician Surgery 03/06/15 MD Vero Coates Jessica MD Pediatric Gastroenterology 03/06/15 MD Shira [address] [place], [place] [address] Krishna Jarrett Assigned PCP 11/14/20 MD Arian [address] [place] [address] documented as of this encounter
--- OUTSIDE RECORDS SUMMARY | 2021-12-06 15:59 | XMS_ITS | Encounter Summary ---
:2000 Author Organization [place] Address [address] [place] [address] Care Team Providers Name Role Phone Marie Granger MD Primary Care Provider Aminata Angela MD Unavailable Unavailable Caitlin Pham MD Unavailable [phone] Krishna Jarrett MD Unavailable Encounter Details Date [...] on filedocumented in this encounter Care Teams Plate And Weld Inspector Relationship Specialty Start Date End Date Marie Granger MD PCP - General 03/06/15 [facility] [address] [place] [address] Julio César, Referring Physician Surgery 03/06/15 MD Vero Coates Jessica MD Pediatric Gastroenterology 03/06/15 MD Shira [address] [place], [place] [address] Krishna Jarrett Assigned PCP 11/14/20 MD Arian [address] [place] [address] documented as of this encounter
--- OUTSIDE RECORDS SUMMARY | 2021-12-06 15:59 | XMS_ITS | Encounter Summary ---
:2000 Author Organization [place] Address [address] [place] [address] Care Team Providers Name Role Phone Marie Granger MD Primary Care Provider Aminata Angela MD Unavailable Unavailable Caitlin Pham MD Unavailable [phone] Encounter Details Date Type Department Care Team [...] on filedocumented in this encounter Care Teams Jump Iron Machine Presser Relationship Specialty Start Date End Date Marie Granger MD PCP - General 03/06/15 [facility] [address] [place] [address] Julio César Referring Physician Surgery 03/06/15 MD Vero Coates Jessica MD Pediatric Gastroenterology 03/06/15 MD Shira [address] [place] [address] documented as of this encounter
--- OUTSIDE RECORDS SUMMARY | 2021-12-06 15:59 | XMS_ITS | Encounter Summary ---
:2000 Author Organization [place] Address [address] [place] [address] Care Team Providers Name Role Phone Marie Granger MD Primary Care Provider Aminata Angela MD Unavailable [facility] Un[facility] [phone] Krishna Jarrett MD Unavailable Encounter Details [...] with No / Unsure 04/01/2021 2:59 PM WAREHOUSE ORDER SELECTOR someone who 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 documented as of this encounter Plan of Treatment Not on filedocumented as of this encounter Visit Diagnoses Not on filedocumented in this encounter Care Teams Pit Furnace Melter Relationship Specialty Start Date End Date Marie Granger MD PCP - General 03/06/15 [facility] [address] [place] [address] [place], Referring Physician Surgery 03/06/15 MD Vero Coates Jessica MD Pediatric Gastroenterology 03/06/15 MD Shira [address] [place] [address] Krsihna Jarrett Assigned PCP 11/14/20 MD Arian [address] [place] [address] documented as of this encounter
--- OUTSIDE RECORDS SUMMARY | 2021-12-06 15:59 | XMS_ITS | Encounter Summary ---
:2000 Author Organization [place] Address [address] [place] [address] Care Team Providers Name Role Phone Marie Granger MD Primary Care Provider Aminata Angela MD Unavailable Unavailable Caitlin Pham MD Unavailable [phone] Krishna Jarrett MD Unavailable Reason for Visit Reason Comments Headache Encounter Details Date Type Department Care Team Description 10/10/[address] [facility] Emergency Dept [address] [place] [address] Social History Tobacco Use Types [...] 09/04/2020 MG tablet daily fluticasone (FLONASE) 50 [place] 1 spray into 16 g 0 MCG/ACT [...] of before a meal. unspecified type rizatriptan (MAXALT-OUT PATIENT THERAPIST) 0 03/31/2021 10 MG ODT documented as of this encounter ED Notes Rick Fischer RN - 10/10/2021 2:02 AM CDT Paper forms completed: Declination of Medical Screening Exam Completed by: Rick Leach RN Rick Fischer RN - 10/10/2021 1:39 AM CDT [facility] ED Arrival Note Arrives through triage. [...] on filedocumented in this encounter Care Teams Bucket Wash Operator Relationship Specialty Start Date End Date Marie Granger MD PCP - General 03/06/15 [facility] [address] [place] [address] Julio César, Referring Physician Surgery 03/06/15 MD Vero Coates Jessica MD Pediatric Gastroenterology 03/06/15 MD Shira [address] [place] [address] Krishna Jarrett Assigned PCP 11/14/20 MD Arian [address] [place] [address] documented as of this encounter
--- OUTSIDE RECORDS SUMMARY | 2021-12-06 15:59 | XMS_ITS | Encounter Summary ---
:2000 Author Organization [place] Address [facility] [place] [address] Care Team Providers Name Role Phone Marie Granger MD Primary Care Provider Aminata Angela MD Unavailable Unavailable Caitlin Pham MD Unavailable [phone] Krishna Jarrett MD Unavailable Reason for Visit Reason Comments Cough Chest Pain Encounter Details Date Type Department Care Team Description 04/01/2021 Virtual Visit [facility] Nicole Bowen t with or exposure to viral disease (Primary Dx); [facility] [place] BIBIANA Swan CNP Mild persistent asthma with acute exacer bation; [address] [address] [address] [place], [place] [address] [address] [place], [place] [phone] [id number] Social History Tobacco Use Types Packs/Day Years [...] with No / Unsure 04/01/2021 2:59 PM RESEARCH ENGINEER someone who 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 documented as of this encounter Patient Instructions Patient InstructionsNicole BowenBIBIANA BRAZING MACHINE SETTER - 04/01/2021 4:20 PM RESEARCH ENGINEER Images from the original note were not included. Patient Education After Your COVID-19 (Coronavirus) Test You have been tested for COVID-19 (coronavirus). If you'll have surgery in the next few days, we'll let you know ahead of time if you have the virus.Please call your surgeon's office with any questions. For all other patients: Results are usually available in Odysiit within 2 to 3 days. If you do not have a Proxsys account, you'll get a letter in the mail in about 7 to 10 days. The Flipping Pro'shart is often the fastest way to get test results. Please sign up if you do not already have a Proxsys account. See the handout Getting COVID-19 Test Results in Odysiit for help. What if my test result is positive? If your test is positive and you have not viewed your result in Odysiit, you'll get a phone call with your [...] results, please visit our testing website at [email or web address]. After 7 to 10 days, if you have not gotten your results: ?? Call ([phone]) and ask to speak with our COVID-19 [...] orwipes. You'll find a full list of advertising sales agent on the EPA website: www.epa.gov/pesticide-registration/lis b-x-wtrqqvsluuzhm-ift-cnhvlxm-ugxn-cov-2. ?? Cover your mouth and nose with a mask or other face covering to avoid spreading germs. ?? Wash your hands and face often. Use soap and water. ?? Caregivers in these groups are at risk for severe illness due to COVID-19: ? People 65 years and older ? People who live in a skilled nursing or long-term care facility ? People with [...] found in many medicines (both prescribed and fypz-xzn-scisrgy medicines). Read all labels to be sure [...] Where can I get more information? ?? [facility] [place] - About COVID-19: [email or web address] ?? CDC - If You're Sick: cdc.gov/coronavirus/2019-ncov/about/mvkji-vdnd-cmtk.html ?? CDC - Ending Home Isolation: www.cdc.gov/coronavirus/2019-ncov/hcp/hkrtaviwlhv-fx-sxcg-patients.html ?? CDC - Caring for Someone: www.cdc.gov/coronavirus/2019-ncov/nz-rib-uol-sick/quhg-pqo-lpclext.html ?? [facility] - Interim Guidance for Hospital Discharge to Home: www.health.[facility].me.us/diseases/coronavirus/hcp/hospdischarge.pdf ?? [facility] clinical trials (COVID-19 research studies): clinicalaffairs.[facility]/wkg-hqnqwmop-lmoaat ?? Below are the COVID-19 hotlines at the [facility] ([facility]). Interpreters are available. ? For health questions: Call [phone] or (7 a.m. to 7 p.m.) ? For questions about schools and childcare: Call [phone] or (7 a.m. to 7 p.m.) For informational purposes only. Not to replace the advice of your health care provider. Clinically reviewed by Infection Prevention and [facility] COVID-19 Clinical Team. Copyright ?? 2020 [facility]. All rights reserved. [employer] [id number] - Rev 02/14/20. Patient Education Phytel Video Sheets Caring for Someone Who Has COVID-19 Your loved one has a COVID-19 infection, and you're caring for them at home. This video will show you some things to do as you provide care. To watch the video: Scan the QR code Using your mobile device, scan the following code: ?? OR Go to the website: www.Gini.net Enter the prescription code: ??67J ?? 2020 [employer]. Patient Education Coronavirus Disease 2019 (COVID-19): Caring [...] that contain caffeine or alcohol. ?? Taking ankq-cdu-dizqjlu (OTC) pain medicine. These are used to [...] high numbers of COVID-19 cases. See the [facility]'s county data website for current transmission information [...] reviewed this educational content on 07/05/2019 ?? [phone] The [employer]. All rights reserved. This information is not [...] reviewed this educational content on 09/03/2018 ?? [phone] The [employer], [employer]. All rights reserved. This information is not intended as a substitute for professional medical care. Always follow your healthcare professional's instructions. ARCH ENGINEER documented in this encounter Progress Notes Nicole Bowen APRN CNP - 04/01/2021 4:20 PM CST Dash is a 20 year old who is being evaluated via a billable telephone visit. What phone number would you like to be contacted at? [phone] How would you like to obtain your [...] follow-ups on file. Nicole Bowen APRN CNP [facility] Direct line to schedule COVID screening/vaccination. [phone] Subjective Dash is a 20 year old [...] member, a healthcare worker or a first calender worker? No Do you live in a skilled nursing, residential, or long-term? No Do you have a way to [...] telephone visits Phone call duration: 12 minutes ARCH ENGINEER documented in this encounter Plan of Treatment [...] disease documented in this encounter Care Teams Medic Technician Relationship Specialty Start Date End Date Marie Granger MD PCP - General 03/06/15 [facility] [address] [place] [address] Julio César, Referring Physician Surgery 03/06/15 MD Vero Coates Jessica MD Pediatric Gastroenterology 03/06/15 MD Shira [facility] [address] [address] Krishna Jarrett Assigned PCP 11/14/20 MD Arian [address] [place], [place] [address] documented as of this encounter
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
[2021-12-06 16:02] LABS: Basophils Absolute Auto 0.05 K/uL (0.00-0.30); Basophils Percent Auto 0.7 % (0.0-3.0); Eosinophils Absolute Auto 0.21 K/uL (0.00-0.50); Eosinophils Percent Auto 2.8 % (0.0-7.0); Hematocrit 44.5 % (37.0-53.0); Hemoglobin* 14.5 gm/dL (13.5-17.5); Immature Granulocytes Abs Auto 0.01 K/uL (0.00-0.30); Lymphocytes Absolute Auto 1.63 K/uL (0.90-2.90); Lymphocytes Percent Auto 21.8 % (20-44); Mean Corpuscular HGB Conc 33 gm/dL (32-36); Mean Corpuscular Hemoglobin 29 pg (26-34); Mean Corpuscular Volume 90 fL (80-100); Monocytes Percent Auto 7.1 % (0.0-11.0); Neutrophils Absolute Auto 5.05 K/uL (1.7-7.0); Neutrophils Percent Auto 67.5 % (42.0-72.0); Platelet Count* 296 K/uL (140-440); RDW Coefficient of Variation % 13.6 % (11.5-15.5); Red Blood Count 4.96 m/uL (4.30-5.90); White Blood Count* 7.48 K/uL (4.50-11.00)
[2021-12-06 16:05] LABS: Slide Review Reflex No
[2021-12-06 16:15] LABS: Chloride* 105 mmol/L (96-114); Potassium* 4.2 mmol/L (3.6-5.1); Sodium* 141 mmol/L (135-149)
[2021-12-06 16:18] LABS: Blood Urea Nitrogen* 17 mg/dL (5-24); Calcium* 9.4 mg/dL (8.4-10.6); Carbon Dioxide* 26 mmol/L (20-32); Creatinine* 0.7 mg/dL (0.5-1.5); Est. Creatinine Clearance* 130.66; Estimated Glomerular Filt Rate 134 ml/min; Glucose* 97 mg/dL (60-115)
[2021-12-06 16:19] LABS: Magnesium* 2.1 mg/dL (1.5-2.6)
[2021-12-06 16:28] LABS: NT Pro B Type NatriureticPept* 21 PG/mL (0-125)
[2021-12-06 16:53] LABS: SARS PCR* POSITIVE SARS-CoV-2 (Negative)
== END 2021-12-06 18:15 | disposition home or self-care (01) ==
PROVIDERS: Emergency Provider Family Medicine; PCP Family Medicine
DX: R00.0 Tachycardia, unspecified (principal)
CPT/HCPCS: 36415; 71045; 80048; 83735; 83880; 84484; 85025; 87635; 93005; 93225; 93226; 99284; 99285

== ENCOUNTER 2022-04-01 11:58 | Outpatient (CLI) | payer MEDICAID, SELFPAY ==
--- NOTE | 2022-04-01 12:15 | CRLHL7_ITS ---
For Patients: As a result of the Cures Act, medical imaging exams and procedure reports are released immediately into your electronic medical record. You may view this report before your referring provider. If you have questions, please contact your health care provider. Indication: History of lump Technique: Targeted grayscale and color Doppler sonogram to the anterior right thigh soft tissues performed. Comparison: X-rays 03/19/2022 Findings: Normal subcutaneous tissues are present. No solid masses or fluid collections. No abnormal vascularity. Impression: No soft tissue mass within the anterior right thigh. Dictated by Eamon Hinojosa MD @ 04/01/2022 1:10:52 PM (Electronically Signed)
== END 2022-04-01 11:59 | disposition home or self-care (01) ==
LOC: US 11:59
PROVIDERS: PCP Family Medicine; Visit Provider Emergency Medicine
DX: M79.651 Pain in right thigh (principal)
CPT/HCPCS: 76882

== ENCOUNTER 2022-07-10 14:32 | Outpatient (CLI) | payer MEDICAID, SELFPAY | END 2022-07-10 14:33 | disposition home or self-care (01) | PROVIDERS: PCP Family Medicine; Visit Provider Family Medicine | DX: R55 Syncope and collapse (principal); R63.4 Abnormal weight loss | CPT/HCPCS: 80053; 84443 ==

== ENCOUNTER 2023-01-20 12:25 | Outpatient (CLI) | payer MEDICAID, SELFPAY | END 2023-01-20 12:26 | disposition home or self-care (01) | LOC: NFLDREF 01-23 18:35 | PROVIDERS: PCP Family Medicine; Referring Provider Family Medicine; Visit Provider Nurse Practitioner Family | DX: J02.9 Acute pharyngitis, unspecified (principal) | CPT/HCPCS: 87635 ==

== ENCOUNTER 2023-04-29 11:11 | Outpatient (CLI) | payer MEDICAID, SELFPAY ==
--- OUTSIDE RECORDS SUMMARY | 2023-04-29 11:16 | XMS_ITS | Encounter Summary ---
Author Name Unknown Organization [place] Address [address] [place] [address] Care Team Providers Care Clinical Review Specialist Name Role Phone Marie Granger MD Primary Care Provider [phone] Aminata Angela MD Unavailable Unavailab Caitlin Walker MD Unavailable [phone] Krishna Jarrett MD Unavailable Nicole Bowen APRN RN CIRCULATING Unavailable [phone] Krishna Jarrett MD Unavailable [phone] Encounter Details Date Type Department Care Team (Late st Contact Info) Description 04/01/2021 MyC Medical Advice [facility] [address] [place] [id number] Nicole Bowen APRN RN CIRCULATING [address] [place] [address] Social History Tobacco Use Types Packs/Day Years Used Date Smoking Tobacco: Never Smokeless Tobacco: Never Alcohol Use Standard Drinks/Week Comments Never 0 (1 standard drink = 0.6 oz pur e alcohol) PHQ-2 Answer Date Recorded PHQ-2 Score 0 11/29/2020 Sex and Gender Information Value Date Recorded Sex Assigned at Not on file Gender Identity Not on file Sexual Orientation Not on file COVID-19 Exposure Response Date Recorded In the last month, have you been in contact with someone who 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 No / Unsure 04/01/2021 2:59 PM DISTRIBUTION OPERATIONS MANAGER documented as of this encounter Plan of Treatment Not on file documented as of this encounter Visit Diagnoses Not on filedocumented in this encounter Care Teams Clinical Review Specialist Relationship Specialty Start Date End Date Marie Granger MD [facility] [address] [place] [address] PCP - General 03/06/15 Aminata Angela MD [facility] [address] [place] [address] Referring Physician Surgery 03/06/15 Caitlin Pham MD [facility] [address] Pediatric Gastroenterology 03/06/15 Krishna Jarrett MD [address] [place] [address] Assigned PCP 11/14/20 06/05/22 Nicole Bowen APRN [facility] [address] [place] [address] Assigned PCP 06/06/22 10/02/22 Krishna Jarrett MD [facility] [address] [place] [address] Assigned PCP 10/03/22 documented as of this encounter
--- OUTSIDE RECORDS SUMMARY | 2023-04-29 11:16 | XMS_ITS | Referral Summary ---
Author Name Unknown Organization [place] Address [facility] [place] [address] Care Team Providers Care Hybrid Corn Breeder Name Role Phone Marie Granger MD Primary Care Provider [phone] Aminata Angela MD Unavailable Unavailab Caitlin Walker MD Unavailable [phone] Krishna Jarrett MD Unavailable [phone] Allergies Active Allergy Reactions Criticality Noted Date Comments Ibuprofen 10/04/2021 Medications Medication Sig Dispensed Refills Start Date End Date Status AMITRIPTYLINE HCL PO Take 25 mg by mouth nightly as needed 0 Active omeprazole (PRILOSEC) 40 MG capsuleIndications:I ntractable vomiting with nausea, vomiting of unspecified type Take 1 capsule (40 mg) by mouth daily Take 30 minutes before a meal. 30 capsule 3 04/22/2015 Active escitalopram (LEXAPRO) 10 MG tablet Take 10 mg by mouth daily 0 09/04/2020 Active albuterol (PROAIR HFA/PROVENTIL HFA/VENTOLIN HFA) 108 (90 Base) MCG/ACT inhalerIndications:M ild intermittent asthma without complication Inhale 2 puffs into the lungs every 4 hours as needed for shortness of breath / dyspnea 18 g 11 11/29/2020 Active fluticasone (FLOVENT HFA) 110 MCG/ACT inhalerIndications:M ild persistent asthma with acute exacerbation Inhale 1 puff into the lungs 2 times daily 12 g 3 04/01/2021 Active rizatriptan (MAXALT-EMPLOYMENT SERVICE SPECIALIST) 10 MG ODT 0 03/31/2021 Active fluticasone (FLONASE) 50 MCG/ACT nasal sprayIndications:Sin us drainage [place] 1 spray into both nostrils daily 16 g 0 08/25/2021 Active albuterol (PROVENTIL HFA) 108 (90 Base) MCG/ACT inhalerIndications:M ild persistent asthma with acute exacerbation Inhale 2 puffs into the lungs every 6 hours 18 g 0 08/25/2021 Active clonazePAM (KLONOPIN) 0.5 MG tablet Take 0.5 mg by mouth 2 times daily 0 01/20/2022 Active Active Problems Problem Noted Date Diagnosed Date Mild persistent asthma with acute exacerbation 1 06/02/2020 Migraine 05/14/2015 Immunizations Name Administration Dates Next Due COVID-19 Vaccine (Sabine) 08/09/2020 Comvax (HIB/HepB) 2000 DTAP (<7y) 05/25/2005, 2,2000,09/08,2000 Dtap, 5 Pertussis Antigens (DAPTACEL) ,09/16/2001,2000,09/08,2000 HEPATITIS A (PEDS 12M-18Y) 07/11/2010,11/21/2007 HIB (PRP-T) 09/16/2001,2000,2000 HepB, Unspecified 12/02/2001 Hepatitis B, Adult 12/02/2001 Hepatitis B, Peds 05/04/2001,2000,06/19/19 01 Historic Hib Hib-titer 09/16/2001,2000,2000,07/19 Influenza (IIV3) PF 03/02/2007,01/20/2007,2005 Influenza Intranasal Vaccine 01/20/2012, 01/12/2011,12/04/2009,12/24,01/06/2008 Influenza Vaccine >6 months,quad, PF 02/2021,01/31/2020,01/12/2014,01/19,01/12/2011,12/04/2009,01/06/2008 ,03/02/2007,01/20/2007,03/19/2006 MMR 05/25/2005,05/31/2001 Mantoux Tuberculin Skin Test 07/09/2008 Meningococcal ACWY (Menactra??) 05/23/2012 Nasal Influenza Vaccine 2-49 (FluMist) 4 Pneumococcal (PCV 7) 2000,2000,07/19 Pneumococcal 23 valent 01/13/2021 Poliovirus, inactivated (IPV) 05/25/2005 ,08/11/2002,05/04/2001,09/08,2000 TDAP (Adacel,Boostrix) 05/23/2012 Varicella 03/19/2006,05/31/2001 Social History Tobacco Use Types Packs/Day Years Used Date Smoking Tobacco: Never Smokeless Tobacco: Never Tobacco Cessation:Counseling Given: Not Answered Alcohol Use Standard Drinks/Week Comments Never 0 (1 standard drink = 0.6 oz pur e alcohol) PHQ-2 Answer Date Recorded PHQ-2 Score 0 11/29/2020 Adolescent Education Answer Date Record ed Getting School Help Needed Not on file 01/19 Sex and Gender Information Value Date Recorded Sex Assigned at Not on file Gender Identity Not on file Sexual Orientation Not on file Last Filed Vital Signs Vital Sign Reading Time Taken Comments Blood Pressure 102/69 01/24/2022 11:04 AM CDT Pulse 87 01/24/2022 11:04 AM CDT Temperature 36.7 ??C (98.1 ??F) 01/24/2022 11:04 AM C DT Respiratory Rate 20 01/24/2022 11:04 AM CDT Oxygen Saturation 97% 01/24/2022 11:04 AM CDT Inhaled Oxygen Concentration - - Weight 57.4 kg (126 lb 9.6 oz) 01/24/2022 11:04 AM CDT Height 175.3 cm (5' 9) 10/10/2021 1:36 AM CDT Body Mass Index 18.7 10/10/2021 1:36 AM CDT Plan of Treatment Not on file Care Teams Hybrid Corn Breeder Relationship Specialty Start Date End Date Marie Granger MD [facility] [address] [place] [address] PCP - General 03/06/15 Aminata Angela MD [facility] [address] [place] [address] Referring Physician Surgery 03/06/15 Caitlin Pham MD [address] [place] [address] Pediatric Gastroenterology 03/06/15 Krishna Jarrett MD [address] [place] [address] Assigned PCP 10/03/22
--- OUTSIDE RECORDS SUMMARY | 2023-04-29 11:16 | XMS_ITS | Encounter Summary ---
Author Name Unknown Organization [place] Address [address] [place] [address] Care Team Providers Care Salesperson Recreational Vehicles Name Role Phone Marie Granger MD Primary Care Provider Aminata Angela MD Unavailable Unavailab Caitlin Walker MD Unavailable [phone] Krishna Jarrett MD Unavailable Nicole Bowen APRN RF TEST ENGINEER Unavailable [phone] Krishna Jarrett MD Unavailable [phone] Encounter Details Date Type Department Care Team (Late st Contact Info) Description 04/01/2022 MyC Medical Advice [address] [address] Chloe Pat, TEST FIXTURE DESIGNER Social History Tobacco Use Types Packs/Day Years Used Date Smoking Tobacco: Never Smokeless Tobacco: Never Alcohol Use Standard Drinks/Week Comments Never 0 (1 standard drink = 0.6 oz pur e alcohol) PHQ-2 Answer Date Recorded PHQ-2 Score 0 11/29/2020 Sex and Gender Information Value Date Recorded Sex Assigned at Not on file Gender Identity Not on file Sexual Orientation Not on file documented as of this encounter Plan of Treatment Not on file documented as of this encounter Visit Diagnoses Not on filedocumented in this encounter Care Teams Salesperson Recreational Vehicles Relationship Specialty Start Date End Date Marie Granger MD [facility] [address] [place] [address] PCP - General 03/06/15 Aminata Angela MD [facility] [address] [place] [address] Referring Physician Surgery 03/06/15 Caitlin Pham MD [address] [place] [address] Pediatric Gastroenterology 03/06/15 Krishna Jarrett MD [address] [place] [address] Assigned PCP 11/14/20 06/05/22 Nicole Bowen APRN [facility] [address] [place] [address] Assigned PCP 06/06/22 10/02/22 Krishna Jarrett MD [address] [place] [address] Assigned PCP 10/03/22 documented as of this encounter
--- OUTSIDE RECORDS SUMMARY | 2023-04-29 11:16 | XMS_ITS | Clinical Summary ---
Author Name Unknown Organization [facility] Address [place], [place] [address] Care Team Providers Care Insulator Helper Name Role Phone Kar Shipman MD Primary Care Provider [phone] Allergies Active Allergy Reactions Criticality Noted Date Comments Cyclobenzaprine Hives,Rash 10/16/2021 Ibuprofen Hives,Rash 12/10/2021 Medications Medication Sig Dispensed Refills Start Date End Date Status CLONAZEPAM (KLONOPIN ORAL) Take 0.5 mg by mouth 2 times daily if needed. 0 Active albuterol (PROVENTIL) 0.083 % neb solution Inhale 3 mL via a nebulizer every 4 hours if needed for Cough, Shortness Of Breath and Wheezing. 1 box 0 12/27/2010 Active ondansetron (ZOFRAN ODT) 4 mg disintegrating tabletIndications:Naus ea and vomiting, intractability of vomiting not specified, unspecified vomiting type Place 1-2 tablets on the tongue every 8 hours if needed for Nausea/Vomiting. 8 tablet 0 10/02/2018 Active escitalopram oxalate (LEXAPRO) 10 mg tablet Take 10 mg by mouth once daily. 0 09/04/2020 Active ondansetron (ZOFRAN ODT) 4 mg disintegrating tabletIndications:Phar yngitis, unspecified etiology Place 1 Tablet (4 mg) on the tongue every 6 hours if needed for Nausea/Vomiting. 12 Tablet 0 10/28/2022 Active Active Problems Problem Noted Date Diagnosed Date Attention deficit disorder with hyperactivity(31 4.01) 05/20/2010 Encounters Date Type Department Care Team Description 04/13/2023 Telephone [facility] [address] [place] [address] Deyanira Saavedra RN Device Check 03/07/2023 Travel from Last 3 Months Immunizations Name Administration Dates Next Due DTaP 05/25/2005, 2,2000,09/08,2000 HIB HbOC (HibTITER) 09/16/2001,2000,2000 HIB-HepB (Comvax) 2000 Hepatitis A (Peds) 07/11/2010,11/21/2007 Hepatitis B (Peds) 05/04/2001,2000 Hepatitis B, Unspecified 12/02/2001 Inactivated Polio Vaccine 05/25/2005,12/2002,05/04/2001,09/08,2000 MMR 05/25/2005,05/31/2001 Meningococcal Vaccine (Menactra) 05/23/2012 Pneumococcal conj 7-Valent (Prevnar 7) 1,2000,2000 Tdap 05/23/2012 Varicella Vaccine 03/19/2006,05/31/2001 Social History Tobacco Use Types Packs/Day Years Used Date Smoking Tobacco: Every Day Cigarettes Smokeless Tobacco: Current Chew Tobacco Cessation:Ready to Q uit: Not Asked; Counseling Given: Not Answered Alcohol Use Standard Drinks/Week Comments Yes 0 (1 standard drink = 0.6 oz pur e alcohol) rarely Social Connections Answer Date Recorded Frequency of Communication with Friends and Fami ly Not on file 11/21/2021 Sex and Gender Information Value Date Recorded Sex Assigned at Not on file Gender Identity Not on file Sexual Orientation Not on file Obstetrics History Last Filed Vital Signs Vital Sign Reading Time Taken Comments Blood Pressure 95/63 10/28/2022 6:20 PM CDT Pulse 101 10/28/2022 6:20 PM CDT Temperature 37.2 ??C (98.9 ??F) 10/28/2022 6:20 PM CD T Respiratory Rate 16 10/28/2022 6:20 PM CDT Oxygen Saturation 99% 10/28/2022 6:20 PM CDT Inhaled Oxygen Concentration - - Weight 55.8 kg (123 lb) 10/28/2022 6:20 PM CDT Height 180.3 cm (5' 11) 10/28/2022 6:20 PM CDT Body Mass Index 17.16 10/28/2022 6:20 PM CDT Plan of Treatment Upcoming Encounters Date Type Department Care Team (Late st Contact Info) Description 06/08/2023 Cardiac Device Check [facility] [phone] Health Maintenance Due Date Last Done Comments Pneumococcal series for age 6-64 (1 of 2 - PCV) 2006 2000, 2000, 2000 HPV series for age 9-26 (1 - Male 2-dose series) 2011 Depression screening for age 12+ 2012 HIV for age 15-65 2015 Hepatitis C screening for age 18-79 2018 Tetanus booster 05/23/2022 05/23/2012 COVID-19 vaccine series (2022- season) 2022 08/09/2020 Influenza for age 9-49 12/04/2022 BMI (ht and wt on same day) for age 18+ 07/23/2023 07/22/2022, 02/11/2022, 12/10/2021 Tdap Completed 05/23/2012 Advance Directives Latest Code Status on File Code Status Date Activated Date Inactivated Comments Full Code 04/07/2022 10:59 AM 04/07/2022 1:34 PM Question Answer Comments Code Status Discussion: Reviewed Preferences Care Teams Insulator Helper Relationship Specialty Start Date End Date Kar Shipman MD [address], [place] [address] PCP - General Family Practice 10/01/18
--- OUTSIDE RECORDS SUMMARY | 2023-04-29 11:16 | XMS_ITS | Clinical Summary ---
Author Name Unknown Organization [place] Address [facility] [place] [address] Care Team Providers Care Phone Circuit Operator Name Role Phone Marie Granger MD Primary Care Provider [phone] Aminata Angela MD Unavailable Unavailab Caitlin Walker MD Unavailable [phone] Krishna Jarrett MD Unavailable Allergies Active Allergy Reactions Criticality Noted Date [...] daily 12 g 3 04/01/2021 Active rizatriptan (MAXALT-MEDICAL SCRIBE) 10 MG ODT 0 03/31/2021 Active fluticasone (FLONASE) 50 MCG/ACT nasal sprayIndications:Sin us drainage [place] 1 spray into both nostrils daily 16 [...] 05/25/2005 ,08/11/2002,05/04/2001,09/08,2000 TDAP (Adacel,Boostrix) 05/23/2012 Varicella 03/19/2006,05/31/2001 Family History Medical History Relation Comments Celiac [...] 2000 ASTHMA CONTROL TEST 2000 NICOTINE/TOBACCO CESSATION COUNSELING Q 1 YR 2000 HPV IMMUNIZATION (1 - Male 2-dose series) 2011 YEARLY PREVENTIVE VISIT 07/12/2011 07/12/19 11, 11/21/2007, 09/21/2006, Additional history exists HIV SCREENING 2015 HEPATITIS C SCREENING 2018 Pneumococcal Vaccine: Pediatrics (0 to 5 Years) and At-Risk Patients (6 to 64 Years) (2 of 2 - PCV) 01/13/2022 01/13/2021, 2000, 2000, Additional history exists DTAP/TDAP/TD IMMUNIZATION (7 - Td or Tdap) 05/23/2022 05/23/2012, 05/25/2005, 05/25/2005, Additional history exists COVID-19 Vaccine (2 - season) 2022 08/09/2020 INFLUENZA VACCINE (#1) 2022 , 01/31/2020, 01/12/2014, Additional history exists PHQ-2 (once per calendar year) 2023 11/29/2020 HEPATITIS B IMMUNIZATION Completed 002, 12/02/2001, 05/04/2001, Additional history exists IPV IMMUNIZATION Completed 05/25/2005, 12/2002, 05/04/2001, Additional history exists MENINGITIS IMMUNIZATION Aged Out 05/23/2012 No l onger eligible based on patient's age to complete this topic RSV MONOCLONAL ANTIBODY Aged Out No l onger eligible based on patient's age to complete this topic Care Teams Phone Circuit Operator Relationship Specialty Start Date End Date Marie Granger MD [facility] [address] [place] [address] PCP - General 03/06/15 Aminata Angela MD [facility] [address] [place] [address] Referring Physician Surgery 03/06/15 Caitlin Pham MD [facility] [address] [address] Pediatric Gastroenterology 03/06/15 Krishna Jarrett MD [address] [address] Assigned PCP 10/03/22
== END 2023-04-29 11:12 | disposition home or self-care (01) ==
PROVIDERS: PCP Family Medicine; Visit Provider Family Medicine
DX: R55 Syncope and collapse (principal); R63.4 Abnormal weight loss; Z13.29 Encounter for screening for other suspected endocrine disorder
CPT/HCPCS: 80053; 84443

== ENCOUNTER 2024-01-07 09:45 | Outpatient (CLI) | payer MEDICAID, SELFPAY ==
--- OUTSIDE RECORDS SUMMARY | 2024-01-07 09:54 | XMS_ITS | Referral Summary ---
Author Organization [employer] Address [address] [place] [address] Care Team Providers Care Implementation Advisor Name Role Phone Marie Granger MD Primary Care Provider [phone] Aminata Angela MD Unavailable Unavailab Caitlin Walker MD Unavailable [phone] Nicole Bowen APRN FUSING MACHINE FEEDER Unavailable [phone] Encounters Date Type Department Care Team Description 11/10/2023 2:15 PM CDT Ancillary Procedure [address] [phone] Stone Stahl PA-C Pain in joint, ankle and foot, right 11/10/2023 Travel 11/10/2023 1:30 PM CDT Office Visit [facility] [address] [phone] Stone Stahl PA-C Pain in joint, ankle and foot, right (Primary Dx) 11/02/2023 Travel 11/02/2023 8:14 PM CDT - 11/02/2023 10:37 PM CDT Emergency [facility] Emergency Dept [address] [place] [phone] Lazarus Izquierdo PA-C Chest pain, unspecified type Discharge Disposition: Home or Self Care from Last 3 Months Allergies Active Allergy Reactions Criticality Noted Date Comments Cyclobenzaprine Hives,Rash Low 10/16/2021 Ibuprofen Hives 10/04/2021 Medications Medication Sig Dispensed Refills Start Date End Date Status AMITRIPTYLINE HCL PO Take 25 mg by mouth nightly as needed Active omeprazole (PRILOSEC) 40 MG capsuleIndications:I ntractable vomiting with nausea, vomiting of unspecified type Take 1 capsule (40 mg) by mouth daily Take 30 minutes before a meal. 30 capsule 3 04/22/2015 Active albuterol (PROAIR HFA/PROVENTIL HFA/VENTOLIN HFA) 108 [...] daily 12 g 3 04/01/2021 Active rizatriptan (MAXALT-BUSH REGENERATOR) 10 MG ODT 03/31/2021 Active fluticasone (FLONASE) 50 MCG/ACT nasal sprayIndications:Sin us drainage [place] 1 spray into both nostrils daily 16 g 08/25/2021 Active albuterol (PROVENTIL HFA) 108 (90 Base) MCG/ACT inhalerIndications:M ild persistent asthma with acute exacerbation Inhale 2 puffs into the lungs every 6 hours 18 g 08/25/2021 Active clonazePAM (KLONOPIN) 0.5 MG tablet Take 0.5 mg by mouth 2 times daily 01/20/2022 Active SYMBICORT 80-4.5 MCG/ACT Inhaler inhale 2 puffs by mouth every 12 hours 08/26/2023 Active topiramate (TOPAMAX) 25 MG tablet TAKE 1 TABLET BY MOUTH TWICE DAILY FOR 7 DAYS THEN 2 TWICE DAILY THEREAFTER Active escitalopram (LEXAPRO) 20 MG tablet Take 1 tablet by mouth daily at 2 pm 08/26/2023 Active Active Problems Problem Noted Date Diagnosed [...] Smoking Tobacco: Every Day Cigarettes Smokeless Tobacco: Never Tobacco Cessation:Ready to Q uit: Not Asked; [...] Sign Reading Time Taken Comments Blood Pressure 94/61 11/10/2023 1:50 PM CDT Pulse 71 11/10/2023 1:50 PM CDT Temperature 36.2 ??C (97.2 ??F) 11/10/2023 1:50 PM CD T Respiratory Rate 14 11/02/2023 9:30 PM CDT Oxygen Saturation 99% 11/10/2023 1:50 PM CDT Inhaled Oxygen Concentration - - Weight 52.6 kg (116 lb) 11/10/2023 1:50 PM CDT Height 175.3 cm (5' 9) 10/10/2021 1:36 AM CDT Body Mass Index 17.13 10/10/2021 1:36 AM CDT Plan of Treatment Not on file Procedures Procedure Name Priority Date/Time Associated Diagnosis Comments XR ANKLE RIGHT G/E 3 VIEWS Routine 11/10/2023 2:28 PM CDT Pain in joint, ankle and foot, right XR CHEST 2 VIEWS STAT 11/02/2023 9:54 PM CDT CBC WITH PLATELETS & DIFFERENTIAL STAT 11/02/2023 8:27 PM CDT EXTRA BLUE TOP TUBE STAT 11/02/2023 8 :27 PM CDT CBC WITH PLATELETS AND DIFFERENTIAL STAT 11/02/2023 8:27 PM CDT EXTRA TUBE STAT 11/02/2023 8:27 PM CDT TROPONIN T, HIGH SENSITIVITY STAT 11/02/2023 8:27 PM CDT BASIC METABOLIC PANEL STAT 11/02/2023 8:27 PM CDT EKG 12-LEAD, TRACING ONLY STAT 11/02/2023 8:24 PM CDT from Last 3 Months Results * XR Ankle Right G/E 3 Views (11/10/2023 2:28 PM CDT) Anatomical Region Laterality Modality Ankle, Left Ankle Right Computed Radio graphy Impressions 11/10/2023 3:12 PM CDT IMPRESSION: Normal joint spaces and alignment. Intact ankle mortise. No acute fracture. OSWALD ROSA DO SYSTEM ID: ??[id number] Narrative 11/10/2023 3:12 PM CDT EXAM: XR ANKLE RIGHT G/E 3 VIEWS DATE/TIME: 11/10/2023 2:28 PM INDICATION: Pain in joint, ankle and foot, right COMPARISON: None available. Procedure Note Oswald Rosa DO - 11/10/2023 EXAM: XR ANKLE RIGHT G/E 3 VIEWS DATE/TIME: 11/10/2023 2:28 PM INDICATION: Pain in joint, ankle and foot, right COMPARISON: None available. IMPRESSION: Normal joint spaces and alignment. Intact ankle mortise. No acute fracture. OSWALD ROSA DO SYSTEM ID: [id number] Stone Gu Rei Stahl PA-C IMG DIAGNO STIC IMAGING ORDERABLES * Chest XR, PA & LAT (11/02/2023 9:54 PM CDT) Anatomical Region Laterality Modality Chest Digital Radiogra phy 11/02/2023 9:54 PM CDT Impressions 11/02/2023 10:24 PM CDT IMPRESSION: Normal heart size. Lungs are well expanded and clear. No visible pneumothorax or pleural effusion. Implanted anterior chest wall monitoring device. Narrative 11/02/2023 10:24 PM CDT EXAM: XR CHEST 2 VIEWS LOCATION: [facility] DATE: 11/02/2023 INDICATION: chest pain COMPARISON: None. Procedure Note Sundeep Babcock MD - 07/30/2024 EXAM: XR CHEST 2 VIEWS LOCATION: [facility] DATE: 11/02/2023 INDICATION: chest pain COMPARISON: None. IMPRESSION: Normal heart size. Lungs are well expanded and clear. Novisible pneumothorax or pleural effusion. Implanted anterior chest wallmonitoring device. Lazarus Izquierdo PA-C IMG DIAGNOSTIC IMAGI NG ORDERABLES * Extra Blue Top Tube (11/02/2023 8:27 PM CDT) [facility] Hold Specimen [facility] 11/02/2023 9:46 PM CDT LABORATORY Blood STRUCTURE OF RIGHT UPPER LIMB / Unknown Venipuncture / Unknown 11/02/2023 8:27 PM CDT 11/02/2023 8:37 PM CDT Lazarus Izquierdo PA-C LAB - BLOOD ORDERABL ES LABORATORY [facility] [address] 1[address] floor, [address] [place] [address], [facility] [phone] * CBC with platelets and differential (11/02/2023 8:27 PM CDT) [facility] WBC Count 8.2 4.0 - 11.0 10e3/uL 11/02/2023 8:44 PM CDT LABORATORY RBC Count 4.94 4.40 - 5.90 10e6/uL 11/02/2023 8:44 PM CDT LABORATORY Hemoglobin 14.8 13.3 - 17.7 g/dL 11/02/2023 8:44 PM CDT LABORATORY Hematocrit 44.1 40.0 - 53.0 % 11/02/2023 8:44 PM CDT LABORATORY MCV 89 78 - 100 fL 11/02/2023 8:44 PM CDT LABORATORY MCH 30.0 26.5 - 33.0 pg 11/02/2023 8:44 PM CDT LABORATORY MCHC 33.6 31.5 - 36.5 g/dL 11/02/2023 8:44 PM CDT LABORATORY RDW 13.1 10.0 - 15.0 % 11/02/2023 8:44 PM CDT LABORATORY Platelet Count 250 150 - 450 10e3/uL 11/02/2023 8:44 PM CDT LABORATORY % Neutrophils 55 % 11/02/2023 8:44 PM CDT LABORATORY % Lymphocytes 33 % 11/02/2023 8:44 PM CDT LABORATORY % Monocytes 8 % 11/02/2023 8:44 PM CDT LABORATORY % Eosinophils 3 % 11/02/2023 8:44 PM CDT LABORATORY % Basophils 1 % 11/02/2023 8:44 PM CDT LABORATORY % Immature Granulocytes 0 % 11/02/2023 8:44 PM CDT LABORATORY NRBCs per 100 WBC 0 <1 /100 024 8:44 PM CDT LABORATORY Absolute Neutrophils 4.5 1.6 - 8.3 10e3/uL 11/02/2023 8:44 PM CDT LABORATORY Absolute Lymphocytes 2.7 0.8 - 5.3 10e3/uL 11/02/2023 8:44 PM CDT LABORATORY Absolute Monocytes 0.7 0.0 - 1.3 10e3/uL 11/02/2023 8:44 PM CDT LABORATORY Absolute Eosinophils 0.3 0.0 - 0.7 10e3/uL 11/02/2023 8:44 PM CDT LABORATORY Absolute Basophils 0.1 0.0 - 0.2 10e3/uL 11/02/2023 8:44 PM CDT LABORATORY Absolute Immature Granulocytes 0.0 <=0.4 10e3/uL 11/02/2023 8:44 PM CDT LABORATORY Absolute NRBCs 0.0 10e3/uL 11/02/2023 8:44 PM CDT LABORATORY Blood STRUCTURE OF RIGHT UPPER LIMB / Unknown Venipuncture / Unknown 11/02/2023 8:27 PM CDT 11/02/2023 8:37 PM CDT Lazarus Izquierdo PA-C LAB - BLOOD ORDERABL ES LABORATORY [facility] [address] floor, [address] [place] [address], [facility] [phone] * Troponin T, High Sensitivity (now) (11/02/2023 8:27 PM CDT) Pathologist [facility] Troponin T, High Sensitivity <6 <=22 ng/L 11/02/2023 9:05 PM CDT LABORATORY Comment: Either a High Sensitivity Troponin T baseline (0 hours) value = 100 ng/L, or an increase in High Sensitivity Troponin T = 7 ng/L at 2 hours compared to 0 hours (2-0 hours), suggests myocardial injury, and urgent clinical attention is required. ?? If the 2-0 hours increase is <7 ng/L, a High Sensitivity Troponin T result above gender-specific reference ranges warrants further evaluation. Recommendations for further evaluation include correlation with clinical decision-making tool (e.g., HEART), a 3rd High Sensitivity Troponin T test 2 hours after the 2nd (a 20% change from baseline would represent concern), admission for observation, close PCC/cardiology follow-up, or urgent outpatient provocative testing. Blood STRUCTURE OF RIGHT UPPER LIMB / Unknown Venipuncture / Unknown 11/02/2023 8:27 PM CDT 11/02/2023 8:37 PM CDT Lazarus Izquierdo PA-C LAB - BLOOD ORDERABL ES LABORATORY [facility] [address], [address] [place] [address], [facility] [phone] * (ABNORMAL) Basic metabolic panel (11/02/2023 8:27 PM CDT) Pathologist [facility] Sodium 141 135 - 145 mmol/L 11/02/2023 9:05 PM CDT LABORATORY Potassium 3.7 3.4 - 5.3 mmol/L 11/02/2023 9:05 PM CDT LABORATORY Chloride 105 98 - 107 mmol/L 11/02/2023 9:05 PM CDT LABORATORY Carbon Dioxide (CO2) 27 22 - 29 mmol/L 11/02/2023 9:05 PM CDT LABORATORY Anion Gap 9 7 - 15 mmol/L 11/02/2023 9:05 PM CDT LABORATORY Urea Nitrogen 9.1 6.0 - 20.0 mg/dL 11/02/2023 9:05 PM CDT LABORATORY Creatinine 0.86 0.67 - 1.17 mg/dL 11/02/2023 9:05 PM CDT LABORATORY GFR Estimate >90 >60 mL/min/1.7 3m2 11/02/2023 9:05 PM CDT LABORATORY Comment:eGFR calculated us2020 CKD-EPI equation. Calcium 9.2 8.8 - 10.4 mg/dL 11/02/2023 9:05 PM CDT LABORATORY Comment:Reference intervals for this test were updated on 10/19/2023 to reflect our healthy population more accurately. There may be differences in the flagging of prior results with similar values performed with this method. Those prior results can be interpreted in the context of the updated reference intervals. Glucose 124(H) 70 - 99 mg/dL 11/02/2023 9:05 PM CDT LABORATORY Blood STRUCTURE OF RIGHT UPPER LIMB / Unknown Venipuncture / Unknown 11/02/2023 8:27 PM CDT 11/02/2023 8:37 PM CDT Lazarus Izquierdo PA-C LAB - BLOOD ORDERABL ES LABORATORY [facility] [address], [address] [place] [address], [facility] [phone] * EKG 12-lead, tracing only (11/02/2023 8:24 PM CDT) Systolic Blood Pressure mmHg RADIOLOGY RESULTS Diastolic Blood Pressure mmHg RADIOLOGY RESULTS Ventricular Rate 69 BPM RAD IOLOGY RESULTS Atrial Rate 69 BPM RADIOLOG Y RESULTS [place] Interval 120 ms RADIOLOG Y RESULTS QRS Duration 98 ms RADIOLO GY RESULTS QT 392 ms RADIOLOGY RESULTS QTc 420 ms RADIOLOGY RESULTS P [place] 58 degrees RADIOLOGY RESULTS R AXIS 84 degrees RADIOLOGY RESULTS T [place] 78 degrees RADIOLOGY RESULTS Interpretation ECG Sinus rhythm Nonspecific ST abnormality Abnormal ECG When compared with ECG of 23-Mar-2017 11:27, No significant change was found Confirmed by GENERATED REPORT, COMPUTER ([id number]), editor index Dg Michael ([id number]) on 11/03/2023 6:52:54 AM RADIOLOGY RESULTS 11/02/2023 8:24 PM CDT 11/03/2023 6:52 AM CDT Lazarus Izquierdo PA-C ECG ORDERABLES RADIOLOGY RESULTS from Last 3 Months Care Teams Implementation Advisor Relationship Specialty Start Date End Date Marie Granger MD [facility] [address] [place] [address] PCP - General 03/06/15 Aminata Angela MD [facility] [address] [place] [address] Referring Physician Surgery 03/06/15 Caitlin Pham MD [address] [address] Pediatric Gastroenterology 03/06/15 Nicole Bowen APRN [facility] [address] [place] [address] Assigned PCP 12/27/23
--- OUTSIDE RECORDS SUMMARY | 2024-01-07 09:54 | XMS_ITS | Clinical Summary ---
Author Organization [employer] Address [address] [place] [address] Care Team Providers Care Machine Brusher Name Role Phone Marie Granger MD Primary Care Provider [phone] Aminata Angela MD Unavailable Unavailab Caitlin Walker MD Unavailable [phone] Nicole Bowen APRN EMERY GRINDER Unavailable [phone] Allergies Active Allergy Reactions Criticality Noted Date [...] daily 12 g 3 04/01/2021 Active rizatriptan (MAXALT-INTERNAL RECRUITER) 10 MG ODT 03/31/2021 Active fluticasone (FLONASE) 50 MCG/ACT nasal sprayIndications:Sin us drainage [place] 1 spray into both nostrils daily 16 [...] with acute exacerbation 1 06/02/2020 Migraine 05/14/2015 Encounters Date Type Department Care Team Description 11/10/2023 2:15 PM CDT Ancillary Procedure [facility] [address] [phone] Stone Stahl PA-C Pain in joint, ankle and foot, right 11/10/2023 1:30 PM CDT Office Visit [facility] [address] [phone] Stone Stahl PA-C Pain in joint, ankle and foot, right (Primary Dx) 11/10/2023 Travel 11/02/2023 8:14 PM CDT - 11/02/2023 10:37 PM CDT Emergency [facility] Emergency Dept [address] [place] [phone] Lazarus Izquierdo PA-C Chest pain, unspecified type Discharge Disposition: Home or Self Care 11/02/2023 Travel from Last 3 Months Immunizations Name Administration Dates Next Due COVID-19 [...] NICOTINE/TOBACCO CESSATION COUNSELING Q 1 YR 2000 YEARLY PREVENTIVE VISIT 07/12/2011 07/12/19 11, 11/21/2007, 09/21/2006, Additional history exists HIV SCREENING 2015 HPV IMMUNIZATION (1 - Male 3-dose series) 2015 HEPATITIS C SCREENING 2018 Pneumococcal Vaccine: Pediatrics (0 to 5 Years) and At-Risk Patients (6 to 64 Years) (2 of 2 - PCV) 01/13/2022 01/13/2021, 2000, 2000, Additional history exists PHQ-2 (once per calendar year) 2023 11/29/2020 COVID-19 Vaccine (2 - 2024-25 season) 2023 08/09/2020 INFLUENZA VACCINE (#1) 2023 , 01/31/2020, 01/12/2014, Additional history exists DTAP/TDAP/TD IMMUNIZATION (8 - Td or Tdap) 07/14/2033 07/15/2023, 05/23/2012, 05/25/2005, Additional history exists RSV VACCINE (1 - 1-dose 75+ series) 2075 HEPATITIS B IMMUNIZATION Completed 002, 12/02/2001, 05/04/2001, Additional history exists MENINGITIS IMMUNIZATION Aged Out 05/23/2012 No l onger eligible based on patient's age to complete this topic RSV MONOCLONAL ANTIBODY Aged Out No l onger eligible based on patient's age to complete this topic Procedures Procedure Name Priority Date/Time Associated Diagnosis [...] acute fracture. OSWALD ROSA DO SYSTEM ID: [id number] Narrative 11/10/2023 3:12 PM CDT EXAM: XR [...] acute fracture. OSWALD ROSA DO SYSTEM ID: [id number] Stone Stahl PA-C IMG DIAGNO STIC IMAGING ORDERABLES [...] CDT EXAM: XR CHEST 2 VIEWS LOCATION: [facility] DATE: 11/02/2023 INDICATION: chest pain COMPARISON: None. Procedure Note Sundeep Babcock MD - 11/02/2023 EXAM: XR CHEST 2 VIEWS LOCATION: [facility] DATE: 11/02/2023 INDICATION: chest pain COMPARISON: None. IMPRESSION: Normal heart size. Lungs are well expanded and clear. Novisible pneumothorax or pleural effusion. Implanted anterior chest wallmonitoring device. Lazarus Izquierdo PA-C IMG DIAGNOSTIC IMAGI NG ORDERABLES * Extra Blue Top Tube (11/02/2023 8:27 PM CDT) Hold Specimen [facility] 11/02/2023 9:46 PM CDT LABORATORY Blood STRUCTURE OF RIGHT UPPER LIMB / Unknown Venipuncture / Unknown 11/02/2023 8:27 PM CDT 11/02/2023 8:37 PM CDT Lazarus Izquierdo PA-C LAB - BLOOD ORDERABL ES LABORATORY [facility] Acute [facility] Lab [address] floor, [address] [place] [address], [facility] [phone] * CBC with platelets and differential (11/02/2023 8:27 PM CDT) [facility] WBC Count 8.2 4.0 - 11.0 10e3/uL [...] PA-C LAB - BLOOD ORDERABL ES LABORATORY [facility] Lab [address], [address] [place] [address], [facility] [phone] * Troponin T, High Sensitivity (now) (11/02/2023 8:27 PM CDT) [facility] Troponin T, High Sensitivity <6 <=22 ng/L [...] PA-C LAB - BLOOD ORDERABL ES LABORATORY [facility] Lab [address] floor, [address] [place] [address], [facility] [phone] * (ABNORMAL) Basic metabolic panel (11/02/2023 8:27 PM CDT) Sodium 141 135 - 145 mmol/L 11/02/2023 [...] PA-C LAB - BLOOD ORDERABL ES LABORATORY [facility] Lab [address], [address] [place] [address], [facility] [phone] * EKG 12-lead, tracing only (11/02/2023 8:24 PM CDT) Systolic Blood Pressure mmHg RADIOLOGY RESULTS Diastolic Blood Pressure mmHg RADIOLOGY RESULTS Ventricular Rate 69 BPM RAD IOLOGY RESULTS Atrial Rate 69 BPM RADIOLOG Y RESULTS [place] Interval 120 ms RADIOLOG Y RESULTS QRS Duration 98 ms RADIOLO GY RESULTS QT 392 ms RADIOLOGY RESULTS QTc 420 ms RADIOLOGY RESULTS P [place] 58 degrees RADIOLOGY RESULTS R AXIS 84 degrees RADIOLOGY RESULTS T [place] 78 degrees RADIOLOGY RESULTS Interpretation ECG Sinus rhythm Nonspecific ST abnormality Abnormal ECG When compared with ECG of 23-Mar-2017 11:27, No significant change was found Confirmed by GENERATED REPORT, COMPUTER ([id number]), editorial cartoonist Dg Michael ([id number]) on 11/03/2023 6:52:54 AM RADIOLOGY RESULTS 11/02/2023 8:24 PM CDT 11/03/2023 6:52 AM CDT Lazarus Izquierdo PA-C ECG ORDERABLES RADIOLOGY RESULTS from Last 3 Months Care Teams Machine Brusher Relationship Specialty Start Date End Date Marie Granger MD [place] [address] [place] [address] PCP - General 03/06/15 Aminata Angela MD [facility] [address] [place] [address] Referring Physician Surgery 03/06/15 Caitlin Pham MD [facility] [place] [address] Pediatric Gastroenterology 03/06/15 Nicole Bowen APRN [facility] [address] [place] [address] Assigned PCP 12/27/23
--- OUTSIDE RECORDS SUMMARY | 2024-01-07 09:54 | XMS_ITS | Encounter Summary ---
Author Organization [employer] Address [address] [place] [address] Care Team Providers Care Casting Operator Name Role Phone Marie Granger MD Primary Care Provider Aminata Angela MD Unavailable Unavailab Caitlin Walker MD Unavailable [phone] Krishna Jarrett MD Unavailable [phone] Encounter Details Date Type Department Care Team (Latest Contact Info) Description 11/02/2023 Travel Social History Tobacco Use Types Packs/Day [...] on filedocumented in this encounter Care Teams Casting Operator Relationship Specialty Start Date End Date Marie Granger MD [facility] [address] [place] [address] PCP - General 03/06/15 Aminata Angela MD [facility] [address] [place] [address] Referring Physician Surgery 03/06/15 Caitlin Pham MD [address] [place] [address] Pediatric Gastroenterology 03/06/15 Krishna Jarrett MD [address] [place] [address] Assigned PCP 10/03/22 12/26/23 documented as of this encounter
--- OUTSIDE RECORDS SUMMARY | 2024-01-07 09:54 | XMS_ITS | Encounter Summary ---
Author Organization [facility] Address [address] [place] [address] Care Team Providers Care Chemical Compounder Helper Name Role Phone Marie Granger MD Primary Care Provider Aminata Angela MD Unavailable Unavailab Caitlin Walker MD Unavailable [phone] Krishna Jarrett MD Unavailable Reason for Visit * Diagnostic Imaging XR (Routine) - Pending Review Specialty Diagnoses / Procedures Referred By Contac t Referred To Contact Radiology. Diagnoses Pain in joint, ankle and foot, right Procedures XR Ankle Right G/E 3 Views Stone Stahl PA-C [address] [address] Referral ID Status Reason Start Date Expiration Date V isits Requested Visits Authorized [id number] Pending Review 11/10/2023 11/09/2024 1 1 Encounter Details Date Type Department Care Team (Latest Contact Info) Description 11/10/2023 2:15 PM CDT Ancillary Procedure [address] [phone] Stone Stahl PA-C [address] [place] [address] [place] [address] Pain in joint, ankle and foot, right Social History Tobacco Use Types Packs/Day Years Used Date Smoking Tobacco: Every Day Cigarettes Smokeless Tobacco: Never Alcohol Use Standard Drinks/Week [...] on file documented as of this encounter Procedures Procedure Name Priority Date/Time Associated Diagnosis Comments XR ANKLE RIGHT G/E 3 VIEWS Routine 11/10/2023 2:28 PM CDT Pain in joint, ankle and foot, right documented in this encounter Results * XR Ankle Right G/E 3 Views (11/10/2023 2:28 PM CDT) Anatomical Region Laterality Modality Ankle, Left Ankle Right Computed Radio graphy Impressions 11/10/2023 3:12 PM CDT IMPRESSION: Normal joint spaces and alignment. Intact ankle mortise. No acute fracture. OSWALD ROSA DO SYSTEM ID: ??[id number] Narrative 11/10/2023 3:12 PM CDT EXAM: XR [...] acute fracture. OSWALD ROSA DO SYSTEM ID: [id number] Stone Stahl PA-C IMKelechi DIAGNO STIC IMAGING ORDERABLES documented in this encounter Visit Diagnoses Diagnosis Pain in joint, ankle and foot, right documented in this encounter Care Teams Chemical Compounder Helper Relationship Specialty Start Date End Date Marie Granger MD [address] [address] PCP - General 03/06/15 Aminata Angela MD [facility] [address] [place] [address] Referring Physician Surgery 03/06/15 Caitlin Pham MD [address] [place] [id number] Pediatric Gastroenterology 03/06/15 Krishna Jarrett MD [address] [place] [address] Assigned PCP 10/03/22 12/26/23 documented as of this encounter
--- OUTSIDE RECORDS SUMMARY | 2024-01-07 09:54 | XMS_ITS | Encounter Summary ---
Author Organization [place] Address [address] [place] [address] Care Team Providers Care Hydrotherapist Name Role Phone Marie Granger MD Primary Care Provider [phone] Aminata Angela MD Unavailable Unavailab Caitlin Walker MD Unavailable [phone] Krishna Jarrett MD Unavailable [phone] Reason for Referral * Consultation (Priority: 1-2 Weeks) - Pending Review Specialty Diagnoses / Procedures Referred By Contac t Referred To Contact Diagnoses Pain in joint, ankle and foot, right Stone Stahl PA-C [address] [place] [address] Referral ID Status Reason Start Date Expiration Date V isits Requested Visits Authorized [id number] Pending Review 11/10/2023 11/09/2024 1 1 Question Answer Consult Type: Foot/Ankle Type: Per Protocol Scheduling Instructions: [facility] Aide will call you to coordinate your care as prescribed by your provider. A civil rights representative will call you within 2 business days to help you schedule your appointment, or you may contact the Library Aide Soaker Soda Worker at: . Comments Please be aware that coverage of these services is subject to the terms and limitations of your health insurance plan. Call member services at your health plan with any benefit or coverage questions. [facility] Aide will call you to coordinate your care as prescribed by your provider. A civil rights representative will call you within 2 business days to help you schedule your appointment, or you may contact the [facility] Soaker Soda Worker at: . * Diagnostic Imaging XR (Routine) - Pending Review Specialty Diagnoses / Procedures Referred By Adolfo florze Referred To Contact Radiology. Diagnoses Pain in joint, ankle and foot, right Procedures XR Ankle Right G/E 3 Views Stone Stahl PA-C [address] [place] [address] Referral ID Status Reason Start Date Expiration Date V isits Requested Visits Authorized [id number] Pending Review 11/10/2023 11/09/2024 1 1 Reason for Visit * Reason Comments Urgent Care Pt states he was at work and foot got caught between a pillar and he fell. Right ankle is in pain. Encounter Details Date Type Department Care Team (Late st Contact Info) Description 11/10/2023 1:30 PM CDT Office Visit [facility] [address] [address] Stone Stahl PA-C [address] [facility] [place] [address] Pain in joint, ankle and foot, right (Primary Dx) Social History Tobacco Use Types [...] 11/10/2023 1:50 PM CD T Respiratory Rate - - Oxygen Saturation 99% 11/10/2023 1:50 PM CDT Inhaled Oxygen Concentration - - Weight 52.6 kg (116 lb) 11/10/2023 1:50 PM CDT Height - - Body Mass Index 17.13 10/10/2021 1:36 AM CDT documented in this encounter Patient Instructions * Attachments The following attachments cannot be sent through Care Everywhere. * Ankle Sprain (Mongolian) documented in this encounter Progress Notes * Stone Stahl PA-C - 11/10/2023 1:30 PM CDT EMP: Ivan'narayan SUBJECTIVE: Chief Complaint Patient presents with Urgent Care Pt states he was at work and foot got caught between a pillar and he fell. Right ankle is in pain. Dash Collier is a 23 year old male presents with a chief complaint of right ankle pain. The injury occurred 1 hour(s) ago. The injury happened while at work. How: as aboveimmediate pain. The patient complained of moderate pain and has had decreased ROM. Pain exacerbated by weight-bearing. Past Medical History: Diagnosis Date ADHD (attention deficit hyperactivity disorder) Migraines Uncomplicated asthma Current Outpatient Medications Medication Sig Dispense Refill albuterol (PROAIR HFA/PROVENTIL HFA/VENTOLIN HFA) 108 (90 Base) MCG/ACT inhaler Inhale 2 puffs intothe lungs every 4 hours as needed for shortness of breath / dyspnea 18 g 11 albuterol (PROVENTIL HFA) 108 (90 Base) MCG/ACT inhaler Inhale 2 puffs into the lungs every 6 hours18 g 0 AMITRIPTYLINE HCL PO Take 25 mg by mouth nightly as needed clonazePAM (KLONOPIN) 0.5 MG tablet Take 0.5 mg by mouth 2 times daily escitalopram (LEXAPRO) 20 MG tablet Take 1 tablet by mouth daily at 2 pm fluticasone (FLONASE) 50 MCG/ACT nasal spray Donnelly 1 spray into both nostrils daily 16 g 0 fluticasone (FLOVENT HFA) 110 MCG/ACT inhaler Inhale 1 puff into the lungs 2 times daily 12 g 3 omeprazole (PRILOSEC) 40 MG capsule Take 1 capsule (40 mg) by mouth daily Take 30 minutes before a meal. 30 capsule 3 rizatriptan (MAXALT-ELECTROLYSIS ENGINEER) 10 MG ODT SYMBICORT 80-4.5 MCG/ACT Inhaler inhale 2 puffs by mouth every 12 hours topiramate (TOPAMAX) 25 MG tablet TAKE 1 TABLET BY MOUTH TWICE DAILY FOR 7 DAYS THEN 2 TWICE DAILY THEREAFTER Social History Tobacco Use Smoking status: Every Day Types: Cigarettes Smokeless tobacco: Never Substance Use Topics Alcohol use: Never ROS: Review of systems negative except as stated above. EXAM: BP 94/61 Pulse 71 Temp 97.2 ??F (36.2 ??C) (Tympanic) Wt 52.6 kg (116 lb) SpO2 99% BMI 17.13 kg/m?? Gen: healthy,alert,no distress Extremity: ankle has point tenderness and decreased ROM . There is not compromise to the distal circulation. Pulses are +2 and SOFTWARE SALES REPRESENTATIVE is brisk CHEST: clear to auscultation CV: regular rate and rhythm EXTREMITIES: peripheral pulses normal MS: no gross deformities noted, no evidence of inflammation in joints, FROM in all extremities. SKIN: no suspicious lesions or rashes NEURO: Normal strength and tone, sensory exam grossly normal, mentation intact and speech normal Results for orders placed or performed in visit on 11/10/23 XR Ankle Right G/E 3 Views Status: None Narrative EXAM: XR ANKLE RIGHT G/E 3 VIEWS DATE/TIME: 11/10/2023 2:28 PM INDICATION: Pain in joint, ankle and foot, right COMPARISON: None available. Impression IMPRESSION: Normal joint spaces and alignment. Intact ankle mortise. No acute fracture. OSWALD ROSA DO SYSTEM ID: [id number] ASSESSMENT: (M25.571) Pain in joint, ankle and foot, right (primary encounter diagnosis) Comment:No evidence of fracture or dislocation Plan: XR Ankle Right G/E 3 Views, Ankle/Foot Bracing Supplies Order Air Ankle Stirrup Brace; Right, Orthopedic Library Aide Referral Follow up with PCP if symptoms worsen or fail to improve documented in this encounter Plan of Treatment Scheduled Referrals Name Type Priority Associated Diagnoses Orde r Schedule Orthopedic Library Aide Referral Referral Priority: 1-2 Weeks Pain in joint, ankle and foot, right Expected: 11/10/2023 (Approximate), Expires: 11/09/2024 documented as of this encounter Results * XR Ankle Right G/E 3 Views (11/10/2023 2:28 PM CDT) Anatomical Region Laterality Modality Ankle, Left Ankle Right Computed Radio graphy Impressions 11/10/2023 3:12 PM CDT IMPRESSION: Normal joint spaces and alignment. Intact ankle mortise. No acute fracture. OSWALD ROSA DO SYSTEM ID: ??[id number] Narrative 11/10/2023 3:12 PM CDT EXAM: XR [...] acute fracture. OSWALD ROSA DO SYSTEM ID: [id number] Stone Stahl PA-C IMG DIAGNO STIC IMAGING ORDERABLES documented in this encounter Visit Diagnoses Diagnosis Pain in joint, ankle and foot, right- Primary Pain in joint, ankle and foot, right documented in this encounter Care Teams Hydrotherapist Relationship Specialty Start Date End Date Marie Granger MD [facility] [address] [place] [address] PCP - General 03/06/15 Aminata Angela MD [facility] [address] [place] [address] Referring Physician Surgery 03/06/15 Caitlin Pham MD [address] [place] [address] Pediatric Gastroenterology 03/06/15 Krishna Jarrett MD [address] [place] [address] Assigned PCP 10/03/22 12/26/23 documented as of this encounter
--- OUTSIDE RECORDS SUMMARY | 2024-01-07 09:54 | XMS_ITS | Encounter Summary ---
Author Organization [place] Address [address] [place] [address] Care Team Providers Care Account Services Associate Name Role Phone Marie Granger MD Primary Care Provider Aminata Angela MD Unavailable Unavailab Caitlin Walker MD Unavailable [phone] Krishna Jarrett MD Unavailable [phone] Encounter Details Date Type Department Care Team (Latest Contact Info) Description 11/10/2023 Travel Social History Tobacco Use Types Packs/Day [...] filedocumented in this encounter Care Teams Account Services Associate Relationship Specialty Start Date End Date Marie Granger MD [facility] [address] [address] PCP - General 03/06/15 Aminata Angela MD [facility] [address] [place] [address] Referring Physician Surgery 03/06/15 Caitlin Pham MD [address] [place] [address] Pediatric Gastroenterology 03/06/15 Krishna Jarrett MD [address] [place] [address] Assigned PCP 10/03/22 12/26/23 documented as of this encounter
--- OUTSIDE RECORDS SUMMARY | 2024-01-07 09:54 | XMS_ITS | Clinical Summary ---
Author Organization [facility] Address [place], [place] [address] Care Team Providers Care Soap Press Feeder Name Role Phone Kar Shipman MD Primary Care Provider [phone] Allergies Active Allergy Reactions Criticality Noted Date Comments Cyclobenzaprine Hives,Rash 10/16/2021 Ibuprofen Hives,Rash 12/10/2021 Medications Medication Sig Dispensed Refills Start Date End Date Status CLONAZEPAM (KLONOPIN ORAL) Take 0.5 mg by mouth 2 times daily if needed. Active albuterol (PROVENTIL) 0.083 % neb solution Inhale 3 mL via a nebulizer every 4 hours if needed for Cough, Shortness Of Breath and Wheezing. 1 box 0 12/27/2010 Active ondansetron (ZOFRAN ODT) 4 mg disintegrating tabletIndications:Naus ea and vomiting, intractability of vomiting not specified, unspecified vomiting type Place 1-2 tablets on the tongue every 8 hours if needed for Nausea/Vomiting. 8 tablet 10/02/2018 Active escitalopram oxalate (LEXAPRO) 10 mg tablet Take 10 mg by mouth once daily. 09/04/2020 Active ondansetron (ZOFRAN ODT) 4 mg disintegrating tabletIndications:Phar yngitis, unspecified etiology Place 1 Tablet (4 mg) on the tongue every 6 hours if needed for Nausea/Vomiting. 12 Tablet 10/28/2022 Active Active Problems Problem Noted Date Diagnosed Date Mild persistent asthma with acute exacerbation 0 12/22/2023 Attention deficit disorder with hyperactivity(31 4.01) 05/20/2010 Encounters Date Type Department Care Team Description 01/05/2024 Telephone [facility] [address] [place] [address] Mary Hendricks RN Post procedure phone call 01/04/2024 2:19 PM CDT - 01/04/2024 11:59 PM CDT Hospital Encounter [facility] [address] [place] [address] Edgar Dunlap MD 01/04/2024 Travel 01/03/2024 Telephone [facility] [address] [place] [address] Nicole Hernandez RN Pre phone call 12/24/2023 Telephone [facility] [address] [place] [address] Lasha Banegas MD Appointment 12/22/2023 4:30 PM CDT Office Visit [place] [address] [place] [address] Lasha Banegas MD Follow Up (F/U for Syncope) 12/22/2023 Travel 12/19/2023 Travel 12/02/2023 Travel 11/24/2023 Telephone [facility] [address] [place] [address] Lasha Banegas MD Concerns 11/04/2023 6:27 AM CDT - 11/04/2023 11:59 PM CDT Hospital Encounter [facility] [address] [place] [address] Lasha Banegas MD Tachycardia 11/04/2023 Travel 10/13/2023 Telephone [facility] [address] [place] [address] Lasha Banegas MD Results (echo) from Last 3 Months Immunizations Name Administration [...] = 0.6 oz pur e alcohol) rarely Sex and Gender Information Value Date Recorded Sex Assigned at Not on file Gender Identity Not on file Sexual Orientation Not on file Obstetrics History Last Filed Vital Signs Vital Sign Reading Time Taken Comments Blood Pressure 103/66 01/04/2024 3:02 PM CDT Pulse 86 01/04/2024 3:02 PM CDT Temperature 36.8 ??C (98.2 ??F) 01/04/2024 3:02 PM CD T Respiratory Rate 16 01/04/2024 3:02 PM CDT Oxygen Saturation 95% 01/04/2024 3:02 PM CDT Inhaled Oxygen Concentration - - Weight 54.3 kg (119 lb 11.2 oz) 01/04/2024 2:26 PM CDT Height 180.3 cm (5' 11) 01/04/2024 2:26 PM CDT Body Mass Index 16.69 01/04/2024 2:26 PM CDT Plan of Treatment Health Maintenance Due Date Last Done Comments Pneumococcal series for age 6-64 (1 of 2 - PCV) 2006 2000, 2000, 2000 Depression screening for age 12+ 2012 HIV for age 15-65 2015 HPV series for age 9-26 (1 - Male 3-dose series) 2015 Hepatitis C screening for ag e 18-79 2018 Tetanus booster 05/23/2022 05/23/2012 COVID-19 vaccine series (2 - season) 2023 08/09/2020 Influenza for age 9-49 12/05/2023 BMI (ht and wt on same day) for age 18+ 12/21/2024 12/22/2023, 07/22/2022, 02/11/2022, Additional history exists Tdap Completed 05/23/2012 Procedures Procedure Name Priority Date/Time Associated Diagnosis Comments CV PROCEDURE TO BE PERFORMED Routine 01/04/2024 3:30 PM CDT EKG 12 LEAD Routine 12/22/2023 Syncope, unspecified syncope type MR CARDIAC WWO Routine 11/04/2023 7:57 AM CDT Tachycardia HEMATOCRIT/HGB,ISTA T Routine 11/04/2023 6:46 AM CDT from Last 3 Months Results * EKG 12 LEAD (12/22/2023) Lasha Banegas MD EKG ORD * MR CARDIAC WWO (11/04/2023 7:57 AM CDT) Anatomical Region Laterality Modality HEART, THORAX Magnetic Resonan ce 11/04/2023 6:25 AM CDT Narrative 11/04/2023 8:24 AM CDT ?[facility] ? CMR Report ??MRN: ? [id number] ?Name: ? SAGE CHEEMA ?: ?2001-Feb-16 ?Scan Date: ?Accession Number: ? [id number] ?Status: ? Final ? Electronically signed by Lasha Chapin 08:24:01 VITALS ===== HEIGHT: 71 in ?(180 cm) WEIGHT: 120 lbs ?(54 kgs) BSA: 1.70 m^2 FINAL IMPRESSION ===== 1. ?? Low normal left ventricular systolic function, LVEF 53%. ?A. ?? LV volumes at the upper limit of normal. ?B. ?? No discreet regional wall motion abnormalities. 2. ?? Normal right ventricular systolic function, RVEF 53%. ?A. ?? Normal RV volumes. 3. ?? 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 ?A. ?? Borderline mitral annular disjunction, 6-7 mm. 4. ?? No replacement myocardial fibrosis. 5. ?? Normal aortic size. 6. ?? Normal coronary ostia - no anomalies. 7. ?? Normal pericardium. SUMMARY ===== LEFT VENTRICLE: Quantitative LVEF 53 %. VIABILITY: Hyperenhancement is normal. RIGHT VENTRICLE: Quantitative RVEF 53 %. LV/RV SEPTUM: The LV/RV septum is normal. LA/RA SEPTUM: The LA/RA septum is normal. LEFT ATRIUM: The left atrium is normal. RIGHT ATRIUM: The right atrium is normal. PERICARDIUM: The pericardium is normal. PLEURAL EFFUSION: There is no pleural effusion. AORTIC VALVE: The aortic valve is normal. MITRAL VALVE: Mitral annular disjunction 7 mm. There is posterior mitral leaflet prolapse. AORTIC ROOT: The aortic root is normal. OTHER FINDINGS: Normal T2 mapping - no edema. Normal coronary ostia - no anomalies. CORE EXAM ===== MEASUREMENTS ----- --- ?VOLUMETRIC ANALYSIS ? . . ? LV ?? Reference ?? RV ?? Reference ?? +------+--------+-----+ +-----+ + EDV ?? ml ? 176 ??(126-208) 180 ??(311-227) ? ml/m^2 104 ??(68-103) ?? 106 ??(68-114) ?? ESV ?? ml ?82 ??(35-80) ?84 ??(38-98) ? ml/m^2 ??48 ??(19-41) ?49 ??(21-50) ?? CO ? MASS g ?83 ??(109-186) ? g/m^2 ?49 ??(59-93) ? SV ?? ml ?94 ??(81-137) ?96 ??(74-143) ? ml/m^2 ??55 ??(44-68) ?57 ??(40-72) ?? EF ?? % ?53 ??(57-74) ?53 ??(48-74) ?? '------+--------+-----+ +-----+ ' ?EXTRACELLULAR VOLUME MEASUREMENT ?PRE-CONTRAST T1 MYOCARDIUM: ??1050 msec ?ECV: ??20 % 17 SEGMENT ----- --- . ----- -----. Segments ? Wall Motion Hyperenhancement Stress Perfusion Interpretation + + + + +------ ----- -----+ Base Anterior ? None ? Base Anteroseptal ? None ? Base Inferoseptal ? None ? Base Inferior ? None ? Base Inferolateral ? None ? Base Anterolateral ? None ? Mid Anterior ? None ? Mid Anteroseptal ? None ? Mid Inferoseptal ? None ? Mid Inferior ? None ? Mid Inferolateral ? None ? Mid Anterolateral ? None ? Apical Anterior ? None ? Apical Septal ? None ? Apical Inferior ? None ? Apical Lateral ? None ? [place] ? None ? + + + + +------ ----- -----+ RV Segments ? Wall Motion Hyperenhancement ? Interpretation + + + + +------ ----- -----+ RV Basal Anterior ? None ? RV Basal Inferior ? None ? RV Mid ? None ? RV Apical ? None ? ' + + + +------ ----- -----' ?FINDINGS ?LV SCAR SIZE (17 SEGMENT): ??0 % SCAN INFO ===== GENERAL ----- --- ?SCANNER ?MOLDED GOODS SPOT PICKER: ??SIEMENS ?MODEL: ??Aera ?CONTRAST AGENT ?TYPE: ??Gadavist ?GD CONCENTRATION: ??1.0 M ?SETUP ?REASON(S) FOR SCAN: ??nonischemic CM etiology ?REFERRING PHYSICIAN: ??LASHA BANEGAS ?ATTENDING PHYSICIAN: ??LASHA MCKEON ===== Patient Account ?[id number] ICD10 Codes ?R00.0 Report generated by [employer], a product of [employer] Procedure Note Lasha Chapin MD - 11/04/2023 [facility] CMR Report Name: SAGE CHEEMA Jorge Luis : Scan Date: Accession Number: [id number] Status: Final Electronically signed by Lasha Chapin 08:24:01 VITALS ===== HEIGHT: 71 in (180 cm) WEIGHT: 120 lbs (54 kgs) BSA: 1.70 m^2 FINAL IMPRESSION ===== 1. Low normal left ventricular systolic function, LVEF 53%. A. LV volumes at the upper limit of normal. B. No discreet regional wall motion abnormalities. 2. Normal right ventricular systolic function, RVEF 53%. A. Normal RV volumes. 3. 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 A. Borderline mitral annular disjunction, 6-7 mm. 4. No replacement myocardial fibrosis. 5. Normal aortic size. 6. Normal coronary ostia - no anomalies. 7. Normal pericardium. SUMMARY ===== LEFT VENTRICLE: Quantitative LVEF 53 %. VIABILITY: Hyperenhancement is normal. RIGHT VENTRICLE: Quantitative RVEF 53 %. LV/RV SEPTUM: The LV/RV septum is normal. LA/RA SEPTUM: The LA/RA septum is normal. LEFT ATRIUM: The left atrium is normal. RIGHT ATRIUM: The right atrium is normal. PERICARDIUM: The pericardium is normal. PLEURAL EFFUSION: There is no pleural effusion. AORTIC VALVE: The aortic valve is normal. MITRAL VALVE: Mitral annular disjunction 7 mm. There is posterior mitralleaflet prolapse. AORTIC ROOT: The aortic root is normal. OTHER FINDINGS: Normal T2 mapping - no edema. Normal coronary ostia - no anomalies. CORE EXAM ===== MEASUREMENTS ----- --- VOLUMETRIC ANALYSIS . . LV Reference RV Reference +------+--------+-----+ +-----+ + EDV ml 176 (126-208) 180 (127-227) ml/m^2 104 (68-103) 106 (68-114) ESV ml 82 (35-80) 84 (38-98) ml/m^2 48 (19-41) 49 (21-50) CO MASS g 83 (109-186) g/m^2 49 (59-93) SV ml 94 (81-137) 96 (74-143) ml/m^2 55 (44-68) 57 (40-72) EF % 53 (57-74) 53 (48-74) '------+--------+-----+ +-----+ ' EXTRACELLULAR VOLUME MEASUREMENT PRE-CONTRAST T1 MYOCARDIUM: 1050 msec ECV: 20 % 17 SEGMENT ----- --- . ----- -----. Segments Wall Motion Hyperenhancement Stress Perfusion Interpretation + + + + +------ ----- -----+ Base Anterior None Base Anteroseptal None Base Inferoseptal None Base Inferior None Base Inferolateral None Base Anterolateral None Mid Anterior None Mid Anteroseptal None Mid Inferoseptal None Mid Inferior None Mid Inferolateral None Mid Anterolateral None Apical Anterior None Apical Septal None Apical Inferior None Apical Lateral None [place] None + + + + +------ ----- -----+ RV Segments Wall Motion Hyperenhancement Interpretation + + + + +------ ----- -----+ RV Basal Anterior None RV Basal Inferior None RV Mid None RV Apical None ' + + + +------ ----- -----' FINDINGS LV SCAR SIZE (17 SEGMENT): 0 % SCAN INFO ===== GENERAL ----- --- SCANNER MOLDED GOODS SPOT PICKER: SIEMENS MODEL: Aera CONTRAST AGENT TYPE: Gadavist GD CONCENTRATION: 1.0 M SETUP REASON(S) FOR SCAN: nonischemic CM etiology REFERRING PHYSICIAN: LASHA BANEGAS ATTENDING PHYSICIAN: LASHA ZAKAIB BILLING ===== Patient Account [id number] ICD10 Codes R00.0 Report generated by [employer], a product of [employer] Lasha Banegas MD MR * HEMATOCRIT/HGB,ISTAT (11/04/2023 6:46 AM CDT) [facility] HEMATOCRIT, POCT 47.0 37.0 - 53.0 % 11/04/2023 6:50 AM CDT [facility] HEMOGLOBIN, POCT 16.0 13.5 - 17.5 g/dL 11/04/2023 6:50 AM CDT [facility] Blood BLOOD SPECIMEN / Unknown 11/04/2023 6:46 AM CDT 11/04/2023 6:50 AM CDT Lasha Banegas MD CHEMISTRY Performing Organization Address City/State/[facility] Co de Phone Number [facility] [address] [place] [address], from Last 3 Months Advance Directives * Full Code (Latest Code Status on File) Date Activated Date Inactivated Comments 04/07/2022 10:59 AM 04/07/2022 1:34 PM Question Answer Comments Code Status Discussion: Reviewed Preferences Care Teams Soap Press Feeder Relationship Specialty Start Date End Date Kar Shipman MD [address] [place] [address] PCP - General Family Practice 10/01/18
--- OUTSIDE RECORDS SUMMARY | 2024-01-07 09:54 | XMS_ITS | Encounter Summary ---
Author Organization [facility] Address [address] [place] [address] Care Team Providers Care Office Nurse Name Role Phone Marie Granger MD Primary Care Provider Aminata Angela MD Unavailable Unavailab Caitlin Walekr MD Unavailable [phone] Krishna Jarrett MD Unavailable [phone] Reason for Visit * Reason Comments Chest Pain Encounter Details Date Type Department Care Team (Late st Contact Info) Description 11/02/2023 8:14 PM CDT - 11/02/2023 10:37 PM CDT Emergency [facility] Emergency Dept [address] [place] [id number] Lazarus Izquierdo, PA-C [facility] [address] [place], [place] [address] Chest pain, unspecified type Discharge Disposition: Home or Self Care Social History Tobacco Use Types Packs/Day Years [...] Sign Reading Time Taken Comments Blood Pressure 107/71 11/02/2023 9:30 PM CDT Pulse 62 11/02/2023 8:18 PM CDT Temperature 37 ??C (98.6 ??F) 11/02/2023 8:18 PM CDT Respiratory Rate 14 11/02/2023 9:30 PM CDT Oxygen Saturation 96% 11/02/2023 9:30 PM CDT Inhaled Oxygen Concentration - - Weight - - Height - - Body Mass Index - - documented in this encounter Discharge Instructions * Discharge Instructions* Lazarus Izquierdo PA-C - 11/02/2023 10:31 PM CDT Discharge Instructions Chest Pain You have been seen today for chest pain or discomfort. At this time, your provider has found no signs that your chest pain is due to a serious or life- threatening condition, (or you have declined more testing and/or admission to the hospital). However, sometimes there is a serious problem that doesnot show up right away. Your evaluation today may not be complete and you may need further testing and evaluation. Generally, every Emergency Department visit should have a follow-up clinic visit with either a primary or a specialty clinic/provider. Please follow-up as instructed by your emergency provider today. Return to the Emergency Department if: Your chest pain changes, gets worse, starts to happen more often, or comes with less activity. You are newly short of breath. You get very weak or tired. You pass out or faint. You have any new symptoms, like fever, cough, numb legs, or you cough up blood. You have anything else that worries you. Until you follow-up with your regular provider, please do the following: Take one aspirin daily unless you have an allergy or are told not to by your provider. If a stress test appointment has been made, go to the appointment. If you have questions, contact your regular provider. Follow-up with your regular provider/clinic as directed; this is very important. If you were given a prescription for [...] if there is anything that worries you. documented in this encounter Medications at Time of Discharge Medication Sig Dispensed Refills Start Date End Date albuterol (PROAIR HFA/PROVENTIL HFA/VENTOLIN HFA) 108 (90 Base) MCG/ACT inhalerIndications:Mild intermittent asthma without complication Inhale 2 puffs into the lungs every 4 hours as needed for shortness of breath / dyspnea 18 g 11 11/29/2020 albuterol (PROVENTIL HFA) 108 (90 Base) MCG/ACT inhalerIndications:Mild persistent asthma with acute exacerbation Inhale 2 puffs into the lungs every 6 hours 18 g 08/25/2021 AMITRIPTYLINE HCL PO Take 25 mg by mouth nightly as needed clonazePAM (KLONOPIN) 0.5 MG tablet Take 0.5 mg by mouth 2 times daily 01/20/2022 escitalopram (LEXAPRO) 20 MG tablet Take 1 tablet by mouth daily at 2 pm 08/26/2023 fluticasone (FLONASE) 50 MCG/ACT nasal sprayIndications:Sinus drainage [place] 1 spray into both nostrils daily 16 g 08/25/2021 fluticasone (FLOVENT HFA) 110 MCG/ACT inhalerIndications:Mild persistent asthma with acute exacerbation Inhale 1 puff into the lungs 2 times daily 12 g 3 04/01/2021 omeprazole (PRILOSEC) 40 MG capsuleIndications:Intr actable vomiting with nausea, vomiting of unspecified type Take 1 capsule (40 mg) by mouth daily Take 30 minutes before a meal. 30 capsule 3 04/22/2015 rizatriptan (MAXALT[employer]) 10 MG ODT 03/31/2021 SYMBICORT 80-4.5 MCG/ACT Inhaler inhale 2 puffs by mouth every 12 hours 08/26/2023 escitalopram (LEXAPRO) 10 MG tablet Take 10 mg by mouth daily 09/04/2020 11/10/2023 documented as of this encounter ED Notes * Karina Moore RN - 11/02/2023 8:14 PM CDT Pt with hx mitral valve prolapse arrives with c/o chest pain 08/12, onset at approximately 1345 today. Pt reports pain has gotten better since, 04/14. Pt reports SOB and tips of my fingers were a little tingly at the time of symptom onset. Pt's significant other is present and reports pt was nauseas earlier as well. Denies dizziness and SOB at this time. * Lazarus Izquierdo PA-C - 11/02/2023 7:50 PM CDT History Chief Complaint: Chest Pain HPI Dash Collier is a 23 year old male with past medical history of asthma, ADD, migraines, valve prolapse, loop recorder in place due to having syncopal events who presents with concerns regarding acute onset of chest pain that occurred while he was at work. He reports around 1:45 PM he was bending over and then felt sudden pressure and tightness in his anterior left side of his chest. It did not radiate to his back chest or arms. He felt tingling in his fingers and felt slightly short of breath. This episode lasted for about 2 minutes. He did feel lightheaded but did not have a syncopal event. He felt slightly nauseous. He took drink some water and the symptoms resolved. Says it did not feel like previous history of of heartburn. He does have a past medical history of mitral valve and has a loop recorder due to lower heart rate in the past. He has never had cardiac surgery. He denies any history of diabetes, high cholesterol or hypertension. He does smoke. No history of heart attack. No history of blood clots recent surgery, active cancer, or hospitalizations. Last echocardiogram t ransthoracic was 09/23/2023 with EF of 45 to 50% without any concerning findings. No family history of aortic dissection. CT PE study performed 01/10/2022 which was negative. Patient noted that he turned on his loop recorder while he was having this event today. Echocardiogram 09/23/2023: Final Impressions: 1. Normal LV size, normal wall thickness, mildly reduced global systolic function with an estimatedEF of 45 - 50%. 2. Right ventricular cavity size is normal, global systolic RV function is normal. 3. Normal left atrium size. 4. The aortic valve is normal, no stenosis and trivial regurgitation. 5. The mitral valve is normal, trace mitral regurgitation. 6. Tricuspid valve is normal. 7. No pericardial effusion. Independent Historian: Review of External Notes: Cardiology notes dated 07/22/2022. Medications: albuterol (PROAIR HFA/PROVENTIL HFA/VENTOLIN HFA) 108 (90 Base) MCG/ACT inhaler albuterol (PROVENTIL HFA) 108 (90 Base) MCG/ACT inhaler AMITRIPTYLINE HCL PO clonazePAM (KLONOPIN) 0.5 MG tablet escitalopram (LEXAPRO) 10 MG tablet fluticasone (FLONASE) 50 MCG/ACT nasal spray fluticasone (FLOVENT HFA) 110 MCG/ACT inhaler omeprazole (PRILOSEC) 40 MG capsule rizatriptan ([employer]) 10 MG ODT Past Medical History: Past Medical History: Diagnosis Date ADHD (attention deficit hyperactivity disorder) Migraines Uncomplicated asthma Past Surgical History: Past Surgical History: Procedure Laterality Date FRACTURE SURGERY 2006 arm fracture repair and hardware removal HERNIA REPAIR 2004 [facility] Exam Patient Vitals for the past 24 hrs: BP Temp Temp src Pulse Resp SpO2 11/02/23 2130 107/71 -- -- -- 14 96 % 11/02/232017 114/78 98.6 ??F (37 ??C) Temporal 62 16 100 % Physical Exam Vitals reviewed. Nursing note reviewed: Patient is thin and tall with Marfan like features.. Constitutional: Appearance: He is not diaphoretic. Eyes: Pupils: Pupils are equal, round, and reactive to light. Neck: Vascular: No JVD. Cardiovascular: Rate and Rhythm: Normal rate and regular rhythm. Pulses: Normal pulses. Radial pulses are 2+ on the right side and 2+ on the left side. Heart sounds: Normal heart sounds, S1 normal and S2 normal. Heart sounds not distant. No murmur heard. No systolic murmur is present. No friction rub. Comments: I cannot appreciate his heart murmur on my exam. Pulmonary: Effort: Pulmonary effort is normal. No tachypnea or respiratory distress. Breath sounds: No stridor. No decreased breath sounds, wheezing, rhonchi or rales. Abdominal: Palpations: Abdomen is soft. There is no hepatomegaly or splenomegaly. Tenderness: There is no abdominal tenderness. Musculoskeletal: Cervical back: Neck supple. Right lower leg: No tenderness. No edema. Left lower leg: No tenderness. No edema. Skin: General: Skin is warm. Capillary Refill: Capillary refill takes less than 2 seconds. Coloration: Skin is not cyanotic. Neurological: Mental Status: He is oriented to person, place, and time. Psychiatric: Mood and Affect: Mood normal. Emergency Department Course ECG ECG taken at 2023 on 11/02/2023, ECG read at 2027 on 11/02/2023 Normal sinus rhythm Nonspecific ST abnormality Abnormal ECG No STEMI Rate 69 bpm. IN interval 120 ms. QRS duration 98 ms. QT/QTc 392/420 ms. P-R-T axes [address] Bush emergency room physician. Imaging: Chest XR, PA & LAT Final Result IMPRESSION: Normal heart size. Lungs are well expanded and clear. No visible pneumothorax or pleural effusion. Implanted anterior chest wall monitoring device. Laboratory: Labs Ordered and Resulted from Time of ED Arrival to Time of ED Departure BASIC METABOLIC PANEL - Abnormal Result Value Sodium 141 Potassium 3.7 Chloride 105 Carbon Dioxide (CO2) 27 Anion Gap 9 Urea Nitrogen 9.1 Creatinine 0.86 GFR Estimate >90 Calcium 9.2 Glucose 124 (*) TROPONIN T, HIGH SENSITIVITY - Normal Troponin T, High Sensitivity <6 CBC WITH PLATELETS AND DIFFERENTIAL WBC Count 8.2 RBC Count 4.94 Hemoglobin 14.8 Hematocrit 44.1 MCV 89 MCH 30.0 MCHC 33.6 RDW 13.1 Platelet Count 250 % Neutrophils 55 % Lymphocytes 33 % Monocytes 8 % Eosinophils 3 % Basophils 1 % Immature Granulocytes 0 NRBCs per 100 WBC 0 Absolute Neutrophils 4.5 Absolute Lymphocytes 2.7 Absolute Monocytes 0.7 Absolute Eosinophils 0.3 Absolute Basophils 0.1 Absolute Immature Granulocytes 0.0 Absolute NRBCs 0.0 Procedures Emergency Department Course & Assessments: Interventions: Medications - No data to display Independent Interpretation (X-rays, CTs, rhythm strip): CXR: No pneumothorax, effusion, infiltrate, or widened midsternum. Consultations/Discussion of Management or Tests: ED Course as of 11/03/23 1033 Tue Nov 02, [id number] HEART Pathway for Early Discharge in Acute Chest Pain from [employer] on 11/02/2023 All calculations should be rechecked by clinician prior to use RESULT SUMMARY: 2 points HEART Pathway Score Low risk 0.9-1.7% 30-day MACE Repeat troponin at 3 hours and if negative, discharge home with outpatient follow-up. INPUTS: History -> 0 = Slightly suspicious EKG -> 1 = Non-specific repolarization disturbance Age -> 0 = <45 Risk factors -> 1 = 1-2 risk factors Initial troponin -> 0 = =normal limit 2117 PERC Rule for Pulmonary Embolism from [employer] on 11/02/2023 All calculations should be rechecked by clinician prior to use RESULT SUMMARY: 0 criteria No need for further workup, as <2% chance of PE. If no criteria are positive and clinician's pre-test probability is <15%, PERC Rule criteriaare satisfied. INPUTS: Age =50 -> 0 = No HR =100 -> 0 = No O2 sat on room air <95% -> 0 = No Unilateral leg swelling -> 0 = No Hemoptysis -> 0 = No Recent surgery or trauma -> 0 = No Prior PE or DVT -> 0 = No Hormone use -> 0 = No 8 Wells' Criteria for Pulmonary Embolism from [employer] on 11/02/2023 All calculations should be rechecked by clinician prior to use RESULT SUMMARY: 0.0 points Low risk group: 1.3% chance of PE in an ED population. Another study assigned scores = 4 as PE Unlikely and had a 3% incidence of PE. INPUTS: Clinical signs and symptoms of DVT -> 0 = No PE is #1 diagnosis OR equally likely -> 0 = No Heart rate > 100 -> 0 = No Immobilization at least 3 days OR surgery in the previous 4 weeks -> 0 = No Previous, objectively diagnosed PE or DVT -> 0 = No Hemoptysis -> 0 = No Malignancy w/ treatment within 6 months or palliative -> 0 = No Social Determinants of Health affecting care: Staffed the case with Dr. Ttaum Pinedo emergency room physician. Disposition: The patient was discharged. Impression & Plan [facility] [place] Diagnoses: None Medical Decision Making: This is a 23-year-old male who presents with acute onset of chest pain more than 6 hours prior to arrival that lasted approximately 2 minutes. Broad differential considered including but not limited to ACS, PE, aortic dissection, pneumothorax, pneumonia, gastritis, among others. EKG shows no concerning acute ischemic changes with negative troponin making ACS unlikely given troponin drawn beyond 6hours from initiating event. Considered PE however patient meets PERC criteria and is low risk based on Wells score. Do not feel D-dimer needs to be pursued as I think PE is unlikely. Chest x-ray obtained showing no widened mediastinum, effusion or infiltrate or pneumothorax. I think aortic dissection is also unlikely at this time. Patient's vital signs are normal and is not hypoxic, hypertensive, hypotensive, tachycardic or febrile. Labs are within normal limits without concerning metabolic changes or elevated white blood cell count. At this time the patient is asymptomatic. I feel he safe to discharge home. 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 At this time I feel he is safe to discharge home return precautions discussed including worsening symptoms, new symptoms or worsening condition. Diagnosis: ICD-10-CM 1. Chest pain, unspecified type R07.9 Discharge Medications: Discharge Medication List as of 11/02/2023 10:31 PM 11/02/2023 Lazarus Izquierdo PA-C Kruger, Jacob C, PA-C 11/03/23 1036 * Inna Pinedo MD - 11/02/2023 7:50 PM CDT ED APC SUPERVISION NOTE: I evaluated this patient in conjunction with Lazarus Izquierdo PA-C I have participated in the care of the patient and personally performed stark elements of the history, exam, and medical decision making. HPI: Dash Collier is a 23 year old male with history of mitral valve prolapse, loop recorder in place, and a history of syncopal episodes presents to the emergency department with a complaint of chestpain. Patient reports he was at work, he bent over, and had sharp pain on the left side of his chest. He reports that this lasted for about 2 minutes. He did not have any syncope. He did not have anyshortness of breath. He is followed by wing mailer machine operator. Independent Historian: None Review of External Notes: Reviewed patient's telephone note from 10/13/2023, patient had an echocardiogram done, mild global systolic dysfunction. Will order a cardiac MRI to reevaluate. EXAM: General: Well-nourished, resting comfortably when I enter the room Eyes: Pupils equal, conjunctivae pink no scleral icterus or conjunctival injection ENT: Moist mucus membranes Respiratory: Lungs clear to auscultation bilaterally, no crackles/rubs/wheezes. Good air movement CV: Normal rate and rhythm, no murmurs GI: Abdomen soft and non-distended. No tenderness, guarding or rebound Skin: Warm, dry. No rashes or petechiae Musculoskeletal: No peripheral edema or calf tenderness Neuro: Alert and oriented to person/place/time Psychiatric: Normal affect Independent Interpretation (X-rays, CTs, rhythm strip): Chest x-ray does not show any sign of consolidation Consultations/Discussion of Management or Tests: None Social Determinants of Health affecting care: None MEDICAL DECISION MAKING/ASSESSMENT AND PLAN: 23-year-old male with a history of mitral valve prolapse and episodes of syncope with a loop recorder in place presents to the emergency department with a complaint of a 2-minute episode of left-sided chest pain. Patient did record on his loop recorder when the episode happened. On exam patient is asymptomatic. Vital signs within acceptable limits, he is not tachycardic, hypoxic, or hypotensive. He is well-appearing. Lung sounds are clear. Abdomen is soft and nontender. Workup is overall reassuring, patient's troponin is negative, electrolytes are within acceptable limits. Chest x-ray does not show any acute findings. EKG does not show any signs of ischemia. Patientis PERC negative I have low suspicion for PE. Since the patient remains asymptomatic here in the ED I think he is safe to go home. He will follow-up with his wing mailer machine operator, and follow-up on the results of his loop recorder that recorded the episode. He will return with any worsening symptoms. Patient feels comfortable with this plan. He is discharged home. DIAGNOSIS: ICD-10-CM 1. Chest pain, unspecified type R07.9 DISPOSITION: Patient is discharged home. Inna Pinedo MD 11/02/2023 [facility] EMERGENCY DEPT Inna Pinedo MD 11/04/23 2308 documented in this encounter Plan of Treatment Not on file documented as of this encounter Procedures Procedure Name Priority Date/Time Associated Diagnosis Comments XR CHEST 2 VIEWS STAT 11/02/2023 9:54 PM CDT EXTRA TUBE STAT 11/02/2023 8:27 PM CDT EXTRA BLUE TOP TUBE STAT 11/02/2023 8 :27 PM CDT CBC WITH PLATELETS AND DIFFERENTIAL STAT 11/02/2023 8:27 PM CDT TROPONIN T, HIGH SENSITIVITY STAT 11/02/2023 8:27 PM CDT CBC WITH PLATELETS & DIFFERENTIAL STAT 11/02/2023 8:27 PM CDT BASIC METABOLIC PANEL STAT 11/02/2023 8:27 PM CDT EKG 12-LEAD, TRACING ONLY STAT 11/02/2023 8:24 PM CDT documented in this encounter Results * Chest XR, PA & LAT (11/02/2023 9:54 PM CDT) Anatomical Region Laterality Modality Chest Digital Radiogra phy 11/02/2023 9:54 PM CDT Impressions 11/02/2023 10:24 PM CDT IMPRESSION: Normal heart size. Lungs are well expanded and clear. No visible pneumothorax or pleural effusion. Implanted anterior chest wall monitoring device. Narrative 11/02/2023 10:24 PM CDT EXAM: XR CHEST 2 VIEWS LOCATION: [facility] DATE: 11/02/2023 INDICATION: chest pain COMPARISON: None. Procedure Note Sundeep Babcock MD - 11/02/2023 EXAM: XR CHEST 2 VIEWS LOCATION: [facility] DATE: 11/02/2023 INDICATION: chest pain COMPARISON: None. IMPRESSION: Normal heart size. Lungs are well expanded and clear. [employer] pneumothorax or pleural effusion. Implanted anterior chest wallmonitoring device. Lazarus Izquierdo PA-C IMG DIAGNOSTIC IMAGI NG ORDERABLES * Extra Blue Top Tube (11/02/2023 8:27 PM CDT) Pathologist [facility] Hold Specimen [facility] 11/02/2023 9:46 PM CDT LABORATORY Blood STRUCTURE OF RIGHT UPPER LIMB / Unknown Venipuncture / Unknown 11/02/2023 8:27 PM CDT 11/02/2023 8:37 PM CDT Lazarus Izquierdo PA-C LAB - BLOOD ORDERABL ES LABORATORY [facility] Lab [address] floor, [address] [place] [address], [facility] [phone] * CBC with platelets and differential (11/02/2023 8:27 PM CDT) [facility] Signature WBC Count 8.2 4.0 - 11.0 10e3/uL [...] PA-C LAB - BLOOD ORDERABL ES LABORATORY [facility] [address], [address] [place] [address], [facility] [phone] * Troponin T, High Sensitivity (now) (11/02/2023 8:27 PM CDT) Pathologist [facility] Troponin T, High Sensitivity <6 <=22 ng/L [...] PA-C LAB - BLOOD ORDERABL ES LABORATORY [facility] [address], [address] [place] [address], [facility] [phone] * (ABNORMAL) Basic metabolic panel (11/02/2023 8:27 [...] 11/02/2023 9:05 PM CDT LABORATORY Comment:eGFR calculated 2020 CKD-EPI equation. Calcium 9.2 8.8 - 10.4 [...] PA-C LAB - BLOOD ORDERABL ES LABORATORY [facility] Lab [address], [address] [place] [address], [facility] [phone] * EKG 12-lead, tracing only (11/02/2023 8:24 PM CDT) Systolic Blood Pressure mmHg RADIOLOGY RESULTS Diastolic Blood Pressure mmHg RADIOLOGY RESULTS Ventricular Rate 69 BPM RAD IOLOGY RESULTS Atrial Rate 69 BPM RADIOLOG Y RESULTS IN Interval 120 ms RADIOLOG Y RESULTS QRS Duration 98 ms RADIOLO GY RESULTS QT 392 ms RADIOLOGY RESULTS QTc 420 ms RADIOLOGY RESULTS P Fleming 58 degrees RADIOLOGY RESULTS R AXIS 84 degrees RADIOLOGY RESULTS T Fleming 78 degrees RADIOLOGY RESULTS Interpretation ECG Sinus rhythm Nonspecific ST abnormality Abnormal ECG When compared with ECG of 23-Mar-2017 11:27, No significant change was found Confirmed by GENERATED REPORT, COMPUTER ([id number]), photographic editor Dg Michael ([id number]) on 11/03/2023 6:52:54 AM RADIOLOGY RESULTS 11/02/2023 8:24 PM CDT 11/03/2023 6:52 AM CDT Lazarus Izquierdo PA-C ECG ORDERABLES RADIOLOGY RESULTS documented in this encounter Visit Diagnoses Diagnosis Chest pain, unspecified type documented in this encounter Care Teams Office Nurse Relationship Specialty Start Date End Date Marie Granger MD [facility] [address], [place] [address] PCP - General 03/06/15 Aminata Angela MD [facility] [address] [place] [address] Referring Physician Surgery 03/06/15 Caitlin Pham MD [address] [place] [address] Pediatric Gastroenterology 03/06/15 Krishna Jarrett MD [address] [place] [address] Assigned PCP 10/03/22 12/26/23 documented as of this encounter
--- OUTSIDE RECORDS SUMMARY | 2024-01-07 09:55 | XMS_ITS | Encounter Summary ---
Author Organization [facility] Address [address] [place] [address] Care Team Providers Care Clinical Support Manager Name Role Phone Marie Granger MD Primary Care Provider Aminata Angela MD Unavailable Unavailab Caitlin Walker MD Unavailable [phone] Krishna Jarrett MD Unavailable Nicole Bowen APRN SHIRT OPERATOR Unavailable [phone] Krishna Jarrett MD Unavailable Nicole Bowen APRN SHIRT OPERATOR Unavailable [phone] Encounter Details Date Type Department Care Team (Late st Contact Info) Description 04/01/2021 MyC Medical Advice [facility] [address] [place] [address] Nicole Bowen APRN SHIRT OPERATOR [address] [place] [address] Social History Tobacco Use Types Packs/Day Years [...] COVID-19? No / Unsure 04/01/2021 2:59 PM [employer] documented as of this encounter Plan of Treatment Not on file documented as of this encounter Visit Diagnoses Not on filedocumented in this encounter Care Teams Clinical Support Manager Relationship Specialty Start Date End Date Marie Granger MD [facility] [address] [place] [address] PCP - General 03/06/15 Aminata Angela MD [facility] [address] [place] [address] Referring Physician Surgery 03/06/15 Caitlin Pham MD [address] [place] [id number] Pediatric Gastroenterology 03/06/15 Krishna Jarrett MD [address] [place] [address] Assigned PCP 11/14/20 06/05/22 Nicole Bowen APRN SHIRT OPERATOR [address] [place] [address] Assigned PCP 06/06/22 10/02/22 Krishna Jarrett MD [address] [place] [address] Assigned PCP 10/03/22 12/26/23 Nicole Bowen APRN SHIRT OPERATOR [address] [place] [address] Assigned PCP 12/27/23 documented as of this encounter
--- OUTSIDE RECORDS SUMMARY | 2024-01-07 09:55 | XMS_ITS | Encounter Summary ---
Author Organization [facility] Address [facility] [place] [address] Care Team Providers Care Mannequin Mounter Name Role Phone Marie Granger MD Primary Care Provider [phone] Aminata Angela MD Unavailable Unavailab Caitlin Walker MD Unavailable + [phone] Krishna Jarrett MD Unavailable [phone] Nicole Bowen APRN INDIVIDUAL PENSION CONSULTANT Unavailable + [phone] Krishna Jarrett MD Unavailable [phone] Nicole Bowen APRN INDIVIDUAL PENSION CONSULTANT Unavailable [phone] Encounter Details Date Type Department Care Team (Late st Contact Info) Description 04/01/[address] [facility] Medical Advice [address] [address] Chloe Pat CMA Social History Tobacco Use Types Packs/Day Years [...] on filedocumented in this encounter Care Teams Mannequin Mounter Relationship Specialty Start Date End Date Marie Granger MD [facility] [address] [place] [address] PCP - General 03/06/15 Aminata Angela MD [facility] [address] [place] [address] Referring Physician Surgery 03/06/[address] [facility] [address] [address] Pediatric Gastroenterology 03/06/15 Krishna Jarrett MD [address] [place] [address] Assigned PCP 11/14/20 06/05/22 Nicole Bowen APRN INDIVIDUAL PENSION CONSULTANT [address] [place] [address] Assigned PCP 06/06/22 10/02/22 Krishna Jarrett MD [address] [place] [address] Assigned PCP 10/03/22 12/26/23 Nicole Bowen APRN INDIVIDUAL PENSION CONSULTANT [address] [place] [address] Assigned PCP 12/27/23 documented as of this encounter
== END 2024-01-07 09:46 | disposition home or self-care (01) ==
PROVIDERS: PCP Family Medicine; Visit Provider Family Medicine
DX: E27.40 Unspecified adrenocortical insufficiency (principal); G47.10 Hypersomnia, unspecified; R73.03 Prediabetes; R55 Syncope and collapse
CPT/HCPCS: 80069; 82088; 82306; 82533; 82627; 84244